=== PATIENT | male | born 1960 | race Caucasian/White ===

== ENCOUNTER 2019-08-13 15:00 | Outpatient (CLI) | payer BC, SELFPAY ==
--- NOTE | ~2019-08-13 | XR_ITS ---
XR hip RT min 2V DATE: 08/13/2019 15:24 INDICATION: Right hip pain radiating down right leg TECHNIQUE: AP, lateral and crosstable lateral views of right hip COMPARISON: None FINDINGS: No fracture or dislocation, avascular necrosis or bone destruction. Right hip joint space a ppears relatively preserved. The pubic symphysis and sacroiliac joints are unremarkable. IMPRESSION: No significant abnormality of right hip Reviewed, dictated and finalized at location A.
== END 2019-08-13 15:01 | disposition home or self-care (01) ==
LOC: ANHIMG 15:02
PROVIDERS: PCP Internal Medicine; Visit Provider Clinical Nurse Specialist
DX: M25.551 Pain in right hip (principal)
CPT/HCPCS: 73502

== ENCOUNTER 2020-02-26 17:10 | Outpatient (CLI) | payer BC, SELFPAY ==
--- NOTE | ~2020-02-26 | CT_ITS ---
EXAMINATION: CT lung screening EXAM DATE: 02/26/2020 17:26 INDICATION: Personal history of nicotine dependence. TECHNIQUE: Spiral low dose CT of the chest without contrast. Axial, coronal and sagittal images were reviewed. The dose-length product (DLP) for this examination was 186.97 mGy-cm. The exposure was t ailored according to patient size (auto mA exposure control), and iterative reconstruction (ASIR) was used as additional dose reduction technique. Comparison is made to prior examination from 12/29/2016. FINDINGS: The lungs are clear. Tracheobronchial tree is patent. There is no mediastinal, hilar o r axillary lymphadenopathy. There are no pleural or pericardial effusions. There is no pneumothor ax. Heart normal in size. There is mild coronary arterial calcification, arterial sclerosis. Uppe r abdomen is unremarkable. There is moderate thoracic spondylosis without osteoblastic or osteolyti c lesions identified. IMPRESSION: Lung-RADS category 1, negative (<1%chance of malignancy); recommend continued LDCT screen ing in 1 year. Reviewed, dictated and finalized at location A. [employer] IMPRESSION: Lung-RADS category 1, negative (<1%chance of malignancy); recommend continued LDCT screening in 1 year.
== END 2020-02-26 17:11 | disposition home or self-care (01) ==
PROVIDERS: PCP Internal Medicine; Visit Provider Internal Medicine
DX: Z12.2 Encounter for screening for malignant neoplasm of respiratory organs (principal); Z87.891 Personal history of nicotine dependence
CPT/HCPCS: 71271

== ENCOUNTER 2020-05-11 06:40 | Outpatient (CLI) | payer BC, SELFPAY ==
--- NOTE | ~2020-05-11 | MR_ITS ---
EXAMINATION: MR lumbar spine wo [facility] EXAM DATE: 05/11/2020 07:41 INDICATION: M54.16 - Radiculopathy, lumbar region . Low back pain and right leg pain. TECHNIQUE: Multi-sequential, multiplanar MR images of the lumbar spine were obtained without contrast . Sagittal T1, T2, T2 fat saturation images. Axial T2 weighted images. There is no prior study for comparison. FINDINGS: There are scattered focal signal abnormalities consistent with hemangiomata, otherwise with out focal suspicious marrow signal abnormalities. There is moderate loss of the disc heights from T11 through L3, mild to moderate at the other lumbar levels. There is 2 mm retrolisthesis L1 on L2, L2 o n L3. There is 3 mm retrolisthesis L3 on L4 and L5 on S1. The conus medullaris terminates at the L1/2 level and has normal signal intensity and morphology. There is nerve root crowding and clumping con sistent with arachnoiditis which could be chronic. Paraspinal soft tissue is unremarkable. Level by level evaluation: T12-L1: There is a mild diffuse disc bulge. Facet arthropathy: Mild. Neural foraminal stenosis: No stenosis. Central canal stenosis: No stenosis. L1-L2: There is a mild to moderate diffuse disc bulge. Facet arthropathy: Mild. Neural foraminal stenosis: Mild left. Central canal stenosis: Mild. L2-L3: There is a moderate diffuse disc bulge. Facet arthropathy: Moderate. Neural foraminal stenosis: Mild to moderate bilateral. Central canal stenosis: Mild to moderate. L3-L4: There is a moderate diffuse disc bulge, far left annular fissure. Facet arthropathy: Moderate. Neural foraminal stenosis: Moderate left, mild to moderate right. Central canal stenosis: Moderate. L4-L5: There is a large diffuse disc bulge. Facet arthropathy: Moderate to severe. Neural foraminal stenosis: Moderate bilateral. Central canal stenosis: Moderate to severe. L5-S1: There is a mild to moderate diffuse disc bulge. Facet arthropathy: Moderate left, mild to moderate right. Neural foraminal stenosis: Moderate to severe left, moderate right. Central canal stenosis: Mild. IMPRESSION: 1. Multilevel nerve root crowding, and clumping distally, consistent with arachnoiditis. 2. L4-5 moderate to severe central canal stenosis. 3. Otherwise overall moderate lumbar spondylosis. Reviewed, dictated and finalized at location A. IMPRESSION: 1. Multilevel nerve root crowding, and clumping distally, consistent with arac hnoiditis. 2. L4-5 moderate to severe central canal stenosis. 3. Otherwise overall moderate lumbar spondylosis.
== END 2020-05-11 06:41 | disposition home or self-care (01) ==
PROVIDERS: PCP Internal Medicine; Visit Provider Internal Medicine
DX: M54.16 Radiculopathy, lumbar region (principal); M54.31 Sciatica, right side; M48.061 Spinal stenosis, lumbar region without neurogenic claudication; M47.816 Spondylosis without myelopathy or radiculopathy, lumbar region
CPT/HCPCS: 72148

== ENCOUNTER 2020-06-19 06:42 | Outpatient (CLI) | payer BC, SELFPAY ==
--- NOTE | ~2020-06-19 | MR_ITS ---
EXAMINATION: MR cervical spine wo con DATE: 06/19/2020 07:54 INDICATION: Lack of coordination. Back and leg pain. TECHNIQUE: Magnetic resonance imaging (MRI) of the cervical spine was performed without intravenous c ontrast. Sequences included sagittal T2-weighted FSE, sagittal STIR FSE, sagittal T1-weighted FSE, ax ial MERGE, and axial T2-weighted FSE. COMPARISON: None FINDINGS: There is 6 degrees levocurvature of cervical spine. There is mild kyphosis of cervical spin e. There is 2 mm retrolisthesis of C6 on C7. Vertebral body heights are normal. There is mildly decre ased disc height at C3-C4 and moderately decreased disc height at C5-C6 and C6-C7. There is increased T2-weighted signal intensity in the spinal cord centered at the ramirez matter with cord volume loss at C6-C7. There is mildly increased T2-weighted signal intensity in the spinal cord at C5-C6. The follo wing disc levels are specifically discussed: C2-C3: There is a left central protrusion. There is no uncovertebral joint osteoarthritis. There is m ild left facet joint osteoarthritis. There is no neural foraminal stenosis. There is no central canal stenosis. C3-C4: The disc is bulging. There is severe bilateral uncovertebral joint osteoarthritis. There is se natasha right and mild left facet joint osteoarthritis. There is moderate right and mild left neural for aminal stenosis. There is mild central canal stenosis. C4-C5: The disc does not extend beyond the endplate margin. There is no uncovertebral joint osteoarth ritis. There is severe right facet joint osteoarthritis. There is mild right neural foraminal stenosi s. There is no central canal stenosis. C5-C6: The disc is bulging. There is severe bilateral uncovertebral joint osteoarthritis. There is mo derate right facet joint osteoarthritis. There is mild bilateral neural foraminal stenosis. There is mild central canal stenosis. C6-C7: The disc is bulging with superimposed central extrusion. There is moderate bilateral uncoverte bral joint osteoarthritis. There is mild left facet joint osteoarthritis. There is moderate bilateral neural foraminal stenosis. There is mild central canal stenosis. C7-T1: The disc does not extend beyond the endplate margin. There is mild left uncovertebral joint os teoarthritis. There is severe bilateral facet joint osteoarthritis. There is mild right and moderate left neural foraminal stenosis. There is no central canal stenosis. IMPRESSION: 1. Myelomalacia at C5-C6 and C6-C7. 2. Moderate cervical spondylosis. Reviewed, dictated and finalized at location A.
== END 2020-06-19 06:43 | disposition home or self-care (01) ==
PROVIDERS: PCP Internal Medicine
DX: R27.9 Unspecified lack of coordination (principal); G95.89 Other specified diseases of spinal cord; M47.812 Spondylosis without myelopathy or radiculopathy, cervical region
CPT/HCPCS: 72141

== ENCOUNTER 2020-08-17 15:07 | Outpatient (CLI) | payer BC, SELFPAY ==
--- NOTE | ~2020-08-17 | MR_ITS ---
EXAMINATION: MR thoracic spine wo [facility] EXAM DATE: 08/17/2020 15:47 INDICATION: Mid back pain. TECHNIQUE: Multi-sequential, multiplanar MR images of the thoracic spine were obtained without contra st. Sagittal T1, T2, T2 fat saturation, axial T2 weighted images reviewed. Correlation is made to MR cervical spine 06/19/2020. FINDINGS: There is mild cervicothoracic scoliosis. Mild mid thoracic disc disease, mild to moderate l ower thoracic disc disease. Mild diffuse loss of lower thoracic vertebral body heights. Small mid and lower thoracic endplate osteophytes. There are scattered focal signal abnormalities consistent with hemangiomata, otherwise without focal suspicious marrow signal abnormalities. Mild upper thoracic, mi ld to moderate mid and lower thoracic facet arthropathy. Small lower cervical spinal cord signal abno rmality, correlate with MRI cervical spine report from 06/19/2020. The thoracic spinal cord signal is normal. Paraspinal soft tissue is unremarkable. The following levels specifically discussed. T8-9: There is a mild to moderate diffuse disc bulge. Facet arthropathy: Mild to moderate right, mild left. Neural foraminal stenosis: Mild to moderate right, mild left. Central canal stenosis: Mild to moderate. T9-10: There is a mild diffuse disc bulge. Facet arthropathy: Mild to moderate bilateral. Neural foraminal stenosis: Mild right. Central canal stenosis: Mild. T10-11: There is a mild to moderate diffuse disc bulge. Facet arthropathy: Mild to moderate bilateral. Neural foraminal stenosis: Moderate bilateral. Central canal stenosis: Mild to moderate. T11-12: There is a mild to moderate diffuse disc bulge. Facet arthropathy: Moderate left, mild right. Neural foraminal stenosis: Moderate to severe left, moderate right. Central canal stenosis: Mild to moderate. T12-L1: There is a mild diffuse disc bulge. Facet arthropathy: Mild. Neural foraminal stenosis: No stenosis. Central canal stenosis: No stenosis. IMPRESSION: Lower thoracic predominant spondylosis as detailed above. No acute findings. Reviewed, dictated and finalized at location A.
== END 2020-08-17 15:08 | disposition home or self-care (01) ==
PROVIDERS: PCP Internal Medicine
DX: M54.9 Dorsalgia, unspecified (principal); M47.814 Spondylosis without myelopathy or radiculopathy, thoracic region
CPT/HCPCS: 72146

== ENCOUNTER → 2020-08-25 16:23 | Outpatient (CLI) | payer BC, SELFPAY ==
--- NOTE | ~2020-08-25 | XR_ITS ---
EXAMINATION: XR chest 2V 08/25/2020 17:09 INDICATION: Dyspnea. PROCEDURE: PA and lateral views of the chest COMPARISON: No prior studies for comparison. FINDINGS: The lungs are clear. The cardiomediastinal silhouette is within normal limits. There are no pleural effusions. There is no pneumothorax suspected. IMPRESSION: 1: NO ACUTE CARDIOPULMONARY DISEASE. Reviewed, dictated and finalized at location A.
== END ==
PROVIDERS: PCP Internal Medicine; Visit Provider Internal Medicine
DX: R06.00 Dyspnea, unspecified (principal)
CPT/HCPCS: 71046

== ENCOUNTER 2020-09-04 10:02 | Outpatient (CLI) | payer BC, SELFPAY ==
--- NOTE | 2020-09-04 10:24 | EST_ITS ---
Patient Info Name: Christiano Malone Age: 60 years : 1960 Gender: Male Ht: 69 in Wt: 205 lbs BSA: 2.15 m2 Exam Date: 09/04/2020 10:36 AM Exam Location: [facility] Stress Patient Status: Outpatient Admit Date: 09/04/2020 Staff Ordering Physician: Lon Graham DO Attending Provider: Lon Graham DO Exercise Technologist: Irasema Wells RDCS Exercise Physician: Mejia Winters DO Exam Type: CA stress test treadmill Study Info Indications R06.00 - Dyspnea, unspecified A treadmill exercise stress test was performed. Summary 1. 1. Negative Walt exercise stress test for ischemic ST changes by ECG criteria. However, he achieved only 73% MPHR for age group which reduces sensitivity of the test. 2. 2. Reduced functional capacity, achieving 7 METs of workload. This is primarily due to unable to keep up with treadmill speed as he ambulates with a limp. 3. 3. Appropriate HR response to exercise. 4. 4. Appropriate HR recovery at 1 minute post exercise. 5. 5. No imaging with stress testing. 6. 6. Patient informed of the above results. Protocol: Walt Stress ECG Details Stage: REST Duration (min): 1 min : 0 sec Speed (mph): 0.0 Grade (%): 0 HR (bpm): 61 SBP (mmHg): 128 DBP (mmHg): 66 METS: --- Stage: REST Duration (min): 4 min : 38 sec Speed (mph): 0.0 Grade (%): 0 HR (bpm): 62 SBP (mmHg): 128 DBP (mmHg): 66 METS: --- Stage: STAGE 1 Duration (min): 1 min : 0 sec Speed (mph): 1.7 Grade (%): 10 HR (bpm): 83 SBP (mmHg): 128 DBP (mmHg): 66 METS: --- Stage: STAGE 1 Duration (min): 2 min : 0 sec Speed (mph): 1.7 Grade (%): 10 HR (bpm): 92 SBP (mmHg): 128 DBP (mmHg): 66 METS: --- Stage: STAGE 1 Duration (min): 3 min : 0 sec Speed (mph): 1.7 Grade (%): 10 HR (bpm): 97 SBP (mmHg): 181 DBP (mmHg): 102 METS: --- Stage: STAGE 2 Duration (min): 1 min : 0 sec Speed (mph): 2.5 Grade (%): 12 HR (bpm): 106 SBP (mmHg): 181 DBP (mmHg): 102 METS: --- Stage: STAGE 2 Duration (min): 2 min : 0 sec Speed (mph): 2.5 Grade (%): 12 HR (bpm): 111 SBP (mmHg): 200 DBP (mmHg): 45 METS: --- Stage: STAGE 2 Duration (min): 3 min : 0 sec Speed (mph): 2.5 Grade (%): 12 HR (bpm): 113 SBP (mmHg): 200 DBP (mmHg): 45 METS: --- Stage: STAGE 3 Duration (min): 0 min : 8 sec Speed (mph): 3.4 Grade (%): 14 HR (bpm): 115 SBP (mmHg): 200 DBP (mmHg): 45 METS: --- Stage: RECOVERY Duration (min): 0 min : 51 sec Speed (mph): 0.0 Grade (%): 0 HR (bpm): 106 SBP (mmHg): 173 DBP (mmHg): 59 METS: --- Stage: RECOVERY Duration (min): 1 min : 51 sec Speed (mph): 0.0 Grade (%): 0 HR (bpm): 87 SBP (mmHg): 173 DBP (mmHg): 59 METS: --- Stage: RECOVERY Duration (min): 2 min : 51 sec Speed (mph): 0.0 Grade (%):
== END 2020-09-04 10:03 | disposition home or self-care (01) ==
LOC: ANHCARD 10:04
PROVIDERS: PCP Internal Medicine; Visit Provider Internal Medicine
DX: R06.00 Dyspnea, unspecified (principal); I10 Essential (primary) hypertension
CPT/HCPCS: 93017

== ENCOUNTER 2020-09-18 08:30 | Outpatient (CLI) | payer BC, SELFPAY ==
--- NOTE | 2020-09-18 08:59 | ECHO_ITS ---
Patient Info Name: Christiano Malone Age: 60 years : 1960 Gender: Male Ht: 69 in Wt: 205 lbs BSA: 2.15 m2 HR: 62 bpm BP: 120 / 72 mmHg Technical Quality: Good Exam Date: 09/18/2020 9:16 AM Exam Location: [facility] Pulmonary Patient Status: Outpatient Admit Date: 09/18/2020 Staff Ordering Physician: Lon Graham DO Quotation Clerk: Jo Santiago RDCS Attending Provider: Lon Graham DO Referring Physician: Santos DIAZ; Exam Type: CA echo doppler color flow Study Info Indications - short of breath Complete two-dimensional, color flow and Doppler transthoracic echocardiogram is performed. Summary 1. Complete two-dimensional, color flow and Doppler transthoracic echocardiogram is performed. 2. Left ventricular chamber dimension is normal. 3. Left ventricular systolic function is normal, estimated at 60-65%. 4. The left ventricular diastolic function is grade I diastolic dysfunction. 5. E/e' 8 is minimally elevated. 6. Global longitudinal strain is normal at -20.4%. 7. No pulmonary hypertension, estimated pulmonary arterial systolic pressure is 21 mmHg. Left Ventricle E/e' 8 is minimally elevated. Global longitudinal strain is normal at -20.4%. Left ventricular chamber dimension is normal. Left ventricular systolic function is normal, estimated at 60-65%. The left ventricular diastolic function is grade I diastolic dysfunction. Right Ventricle Right ventricular chamber dimension is normal. Right ventricular systolic function is normal. Left Atria Left atrial chamber dimension is normal. Right Atria Right atrial chamber dimension is normal. Aortic Valve The aortic valve is trileaflet. There is no aortic valve stenosis. There is no aortic valve regurgitation. Pulmonic Valve There is no pulmonic regurgitation. Mitral Valve There is no mitral valve stenosis. There is no mitral valve regurgitation. Tricuspid Valve There is no tricuspid valve regurgitation. No pulmonary hypertension, estimated pulmonary arterial systolic pressure is 21 mmHg. Pericardium/Pleural There is no pericardial effusion. Inferior Vena Cava Normal inferior vena cava with >50% collapse upon inspiration consistent with normal right atrial pressure, 5 mmHg. Aorta The aortic root size at the sinus of Valsalva is normal. Left Ventricular Outflow Tract Name Value Normal LVOT 2D LVOT Diameter 2.0 cm LVOT Doppler LVOT Peak Gradient 7 mmHg LVOT Mean Gradient 4 mmHg LVOT VTI 26 cm LVOT VTI/AV VTI Ratio 1.0 LVOT Stroke Volume 79 ml LVOT CO 16.7 l/min LVOT CI 7.8 l/min/m2 Pulmonic Valve Name Value Normal PV Doppler
--- NOTE | 2020-09-18 13:42 | WPDPFTINT ---
PFT Procedure Performed PFT Procedure Performed Plethysmography (Lung Vol) Diffusing Cap (DLCO) Flow Vol Loop Spirometry w/o Bronchodil PFT Interpretation This is a pulmonary function test with spirometry, plethysmography and diffusing capacity. The test was performed and results interpreted in accordance with the 2019 and 2005 ATS/ERS Task Force guidelines respectively using the Global Lung Function Initiative-2012 reference equations. Patient demonstrated good effort and cooperation. Reproducibility criteria were met. The quality of the spirometry maneuver was Grade B. Findings: Spirometry: There is decreased maximal expiratory airflow at low lung volumes with concave expiratory flow tracing. The FVC is 2.72 L, 61% predicted. The FEV1 is 2.07 L, 60% predicted. The FEV1: FVC ratio 76%. Plethysmography: The total lung capacity is 6.75 L, 100% predicted. The functional residual capacity is 4.13 L, 117% predicted. The residual volume is 3.70, 168% predicted. Diffusing capacity: The absolute diffusion capacity is 19.2, 69% predicted. The diffusing capacity corrected for alveolar volume is 4.38, 103% predicted. Impression: There is a moderate obstructive abnormality. The increase in residual volume is consistent with air trapping from an obstructive abnormality. The absolute diffusing capacity is mildly decreased and normalizes when corrected for alveolar volume. There are no prior studies for comparison
== END 2020-09-18 08:31 | disposition home or self-care (01) ==
PROVIDERS: PCP Internal Medicine; Visit Provider Internal Medicine
DX: R06.02 Shortness of breath (principal); R06.00 Dyspnea, unspecified
CPT/HCPCS: 93306; 94375; 94726; 94729

== ENCOUNTER 2020-10-16 09:32 | Outpatient (CLI) | payer BC, SELFPAY ==
--- NOTE | ~2020-10-16 | NM_ITS ---
EXAMINATION: NM selvin stress w perfusion DATE: 10/16/2020 12:14 INDICATION: Chest pain TECHNIQUE: Rest images were obtained following intravenous administration of 9.64 mCi Tc99m tetrofosm in (Myoview). The patient was infused intravenously with Lexiscan (Regadenoson). Then, 30.6 mCi Tc99m tetrofosmin (Myoview) was administered intravenously, and stress images were obtained in supine posi tion. Additional prone post stress images were obtained. Data was reconstructed into short axis and h orizontal and vertical long axis SPECT images. Gated SPECT images were also obtained. COMPARISON: None. FINDINGS: There is no definite reversible or fixed perfusion abnormality to suggest ischemia or infar ction. There is normal left ventricular chamber size, wall motion and ejection fraction. Left ventr icular ejection fraction measures 68%. IMPRESSION: 1. Normal myocardial perfusion at rest and during stress. 2. Left ventricular ejection fraction measuring 68%. Reviewed, dictated and finalized at location B.
--- NOTE | 2020-10-16 10:07 | EST_ITS ---
Patient Info Name: Christiano Malone Age: 60 years : 1960 Gender: Male Ht: 69 in Wt: 200 lbs BSA: 2.12 m2 Exam Date: 10/16/2020 10:48 AM Exam Location: [facility] Stress Patient Status: Outpatient Admit Date: 10/16/2020 Staff Ordering Physician: Lon Graham DO Attending Provider: Lon Grahma DO Exercise Technologist: Irasema Wells RDCS Exercise Physician: Mejia Winters DO Exam Type: CA stress selvin w NM Study Info Indications R07.9 - Chest pain, unspecified A regadenoson stress test was performed. Summary 1. 1. Negative lexiscan stress test for ischemic ST changes by ECG criteria. 2. 2. Stable hemodynamics throughout the test. 3. 3. Nuclear scan to follow and will be reported separately. Please correlate with it. 4. 4. Patient informed of the above results. Protocol: Lexiscan Stress ECG Details Stage: REST Duration (min): 0 min : 44 sec HR (bpm): 50 SBP (mmHg): 127 DBP (mmHg): 76 Stage: REST Duration (min): 16 min : 3 sec HR (bpm): 45 SBP (mmHg): 127 DBP (mmHg): 76 Stage: STAGE 1 Duration (min): 1 min : 0 sec HR (bpm): 54 SBP (mmHg): 117 DBP (mmHg): 74 Stage: RECOVERY Duration (min): 1 min : 0 sec HR (bpm): 71 SBP (mmHg): 117 DBP (mmHg): 72 Stage: RECOVERY Duration (min): 2 min : 0 sec HR (bpm): 71 SBP (mmHg): 117 DBP (mmHg): 72 Stage: RECOVERY Duration (min): 3 min : 0 sec HR (bpm): 68 SBP (mmHg): 116 DBP (mmHg): 70 Stage: RECOVERY Duration (min): 4 min : 0 sec HR (bpm): 65 SBP (mmHg): 116 DBP (mmHg): 70 Stage: RECOVERY Duration (min): 5 min : 0 sec HR (bpm): 63 SBP (mmHg): 116 DBP (mmHg): 61 Stage: RECOVERY Duration (min): 6 min : 0 sec HR (bpm): 64 SBP (mmHg): 116 DBP (mmHg): 61 Stage: RECOVERY Duration (min): 6 min : 43 sec HR (bpm): 63 SBP (mmHg): 121 DBP (mmHg): 64 Rest HR: 45 bpm Peak HR: 72 bpm Rest Sys BP: 127 mmHg Peak Sys BP: 121 mmHg Max Pred HR: 159 bpm % Max Pred HR: 45 % Target HR: 135 bpm Max RPP: 8,712 bpm*mmHg Termination Reason: Completed protocol Cardiac Symptoms: Shortness of breath Total Time: 1 min : 0 sec Rest Taylor BP: 76 mmHg Peak Taylor BP: 64 mmHg Total Dose: 0.4 mg Resting ECG Sinus bradycardia, IRBBB. Stress ECG No ST changes. Arrhythmias None. Report Signatures
== END 2020-10-16 09:33 | disposition home or self-care (01) ==
PROVIDERS: PCP Internal Medicine; Visit Provider Internal Medicine
DX: R06.00 Dyspnea, unspecified (principal); R07.9 Chest pain, unspecified; R53.83 Other fatigue
CPT/HCPCS: 78452; 93017; A9502; J2785

== ENCOUNTER 2021-03-19 13:26 | Outpatient (CLI) | payer BC, SELFPAY ==
--- NOTE | ~2021-03-19 | CT_ITS ---
CT lung screening DATE: 03/19/2021 13:46 INDICATION: Personal history of nicotine dependence TECHNIQUE: Spiral CT images through the chest. The exposure was tailored according to patient size. I terative reconstruction was used as an additional dose reduction technique. Exam dose: 317.73 mGy-cm total exam DLP. COMPARISON: 08/25/2020 PA and lateral chest 02/26/2020 CT lung screening FINDINGS: Normal heart size. There is atherosclerotic calcification but normal caliber of the thoraci c aorta. Coronary artery calcifications. No hilar or mediastinal mass lesion or lymphadenopathy. 3 mm nodule in the superior segment of the right lower lobe (series 4 image 71). Normal morphology of the adrenal glands. Lower anterior cervical spine surgical fusion. Degenerative spurring of the thoracic and lumbar spine. IMPRESSION: Lung-RADS category 2; benign appearance or behavior. Less than 1% risk of malignancy Recommendation: 1 year follow-up CT lung screening Reviewed, dictated and finalized at Location A. Reviewed, dictated and finalized at location A. 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 Less than 1% r isk of malignancy Recommendation: 1 year follow-up CT lung screening
== END 2021-03-19 13:27 | disposition home or self-care (01) ==
LOC: ANHIMG 13:30
PROVIDERS: PCP Internal Medicine; Visit Provider Nurse Practitioner
DX: Z12.2 Encounter for screening for malignant neoplasm of respiratory organs (principal); Z87.891 Personal history of nicotine dependence
CPT/HCPCS: 71271

== ENCOUNTER 2021-06-22 12:43 | Outpatient (CLI) | payer BC, SELFPAY ==
--- NOTE | ~2021-06-22 | MR_ITS ---
EXAMINATION: MR thoracic spine wo con DATE: 06/22/2021 14:26 INDICATION: Right leg weakness. TECHNIQUE: Magnetic resonance imaging (MRI) of the thoracic spine was performed without intravenous c ontrast. Sagittal localizer T1-weighted FSE of the cervical spine was obtained. Thoracic spine sequen pilar included sagittal T2-weighted FSE, sagittal T1-weighted FSE, sagittal STIR FSE, and axial T2-weig hted FSE. COMPARISON: Thoracic spine MRI 08/17/2020 FINDINGS: There is 8 degrees dextrocurvature of thoracic spine. There are Schmorl's nodes from T6-T7 through T12-L1. There is mild chronic anterior wedging of T12 vertebral body. There is mildly decreas ed disc height from T3-T4 through T7-T8 and moderately decreased disc height from T8-T9 through T11-T 12. There are changes of anterior fusion procedure at C5-C6. There is multilevel facet joint osteoar thritis, severe on the right at T8-T9, T10-T11, and T11-T12 and severe on the left at T8-T9 and T11-T 12. There is mild neural foraminal stenosis bilaterally at multiple levels. On the right, there is mo derate neural foraminal stenosis at T10-T11 and T11-T12. On the left, there is moderate neural forami nal stenosis at T10-T11. At T1-T2, there is a right central extrusion with mild central canal stenosi s. At T2-T3, there is a left central protrusion with mild central canal stenosis. At T6-T7 and T7-T8, the discs are bulging with mild central canal stenosis. At T8-T9, there is a right central extrusion with mild central canal stenosis and ventral indentation of the spinal cord. The discs are bulging f rom T9-T10 through T12-L1 with mild central canal stenosis. Partially visualized is myelomalacia at C 5-C6 and C6-C7. The distal spinal cord is obscured by motion artifact. IMPRESSION: 1. Moderate thoracic spondylosis. 2. Myelomalacia at C5-C6 and C6-C7. Reviewed, dictated and finalized at location B.
--- NOTE | ~2021-06-22 | MR_ITS ---
EXAMINATION: MR cervical spine wo con DATE: 06/22/2021 14:12 INDICATION: Right leg weakness. TECHNIQUE: Magnetic resonance imaging (MRI) of the cervical spine was performed without intravenous c ontrast. Sequences included sagittal T2-weighted FSE, sagittal T2-weighted FS FSE, sagittal T1-weight ed FSE, axial MERGE, and axial T2-weighted FSE. COMPARISON: Cervical spine MRI 06/19/2020 FINDINGS: There is 9 degrees levocurvature of cervicothoracic spine. There is 2 mm anterolisthesis of C4 on C5 and 2 mm retrolisthesis of C5 on C6 and C6 on C7. Vertebral body heights are normal. There are changes of anterior fusion procedure at C5-C6 with interbody device and anterior plate and screws . There is moderately decreased disc height at C3-C4 and severely decreased disc height at C6-C7. The re is increased T2-weighted signal intensity in the spinal cord at C5-C6 and C6-C7, consistent with m yelomalacia. The following disc levels are specifically discussed: C2-C3: There is a left central protrusion. There is moderate left uncovertebral joint osteoarthritis. There is mild right and moderate left facet joint osteoarthritis. There is mild left neural foramina l stenosis. There is mild central canal stenosis. C3-C4: There is a right central and foraminal zone extrusion. There is severe bilateral uncovertebral joint osteoarthritis. There is severe right and mild left facet joint osteoarthritis. There is sever e right and moderate left neural foraminal stenosis. There is moderate central canal stenosis with ve ntral and dorsal indentation of the spinal cord. C4-C5: There is a central extrusion. There is mild bilateral uncovertebral joint osteoarthritis. Ther e is severe right facet joint osteoarthritis. There is moderate right and mild left neural foraminal stenosis. There is mild central canal stenosis. C5-C6: There is severe bilateral uncovertebral joint hypertrophy. There is moderate bilateral facet j oint osteoarthritis. There is moderate right and mild left neural foraminal stenosis. There is no chad tral canal stenosis. C6-C7: The disc is bulging. There is severe bilateral uncovertebral joint osteoarthritis. There is mo derate bilateral facet joint osteoarthritis. There is moderate bilateral neural foraminal stenosis. T here is mild central canal stenosis. C7-T1: The disc does not extend beyond the endplate margin. There is no uncovertebral joint osteoarth ritis. There is severe bilateral facet joint osteoarthritis. There is moderate right and mild left ne ural foraminal stenosis. There is no central canal stenosis. IMPRESSION: 1. Myelomalacia at C5-C6 and C6-C7. 2. Severe cervical spondylosis. 3. Anterior fusion procedure at C5-C6, new from 06/19/2020. Reviewed, dictated and finalized at location B.
--- NOTE | ~2021-06-22 | MR_ITS ---
EXAMINATION: MR lumbar spine wo con DATE: 06/22/2021 14:26 INDICATION: Right leg weakness. TECHNIQUE: Magnetic resonance imaging (MRI) of the lumbar spine was performed without intravenous con trast. Sequences included sagittal T2-weighted FSE, sagittal T2-weighted FS FSE, sagittal T1-weighted FSE, and axial T2-weighted FSE. COMPARISON: Lumbar spine MRI 05/11/2020 FINDINGS: There is 5 degrees levocurvature of lumbar spine. There is 4 mm retrolisthesis of L1 on L2, L2 on L3, and L3 on L4 and 3 mm retrolisthesis of L5 on S1. There are Schmorl's nodes at multiple le vels. There is mild chronic anterior wedging of T12-L2 vertebral bodies. There is moderately decrease d disc height from T11-T12 through L4-L5 and mildly decreased disc height at L5-S1. The distal spinal cord signal intensity is normal. The conus medullaris is at L1. The following disc levels are specif ically discussed: L1-L2: The disc is bulging and has an annular fissure. There is mild right and moderate left facet rocco int osteoarthritis. There is mild bilateral neural foraminal stenosis. There is mild central canal st enosis. L2-L3: The disc is bulging and has an annular fissure. There is mild bilateral facet joint osteoarthr itis. There is moderate bilateral neural foraminal stenosis. There is mild central canal stenosis. L3-L4: The disc is bulging and has an annular fissure. There is moderate right and mild left facet rocco int osteoarthritis. There is moderate bilateral neural foraminal stenosis. There is mild central nguyen l stenosis. L4-L5: The disc is bulging and has an annular fissure. There is severe bilateral facet joint osteoart hritis. There is moderate bilateral neural foraminal stenosis. There is moderate central canal stenos is. L5-S1: The disc is bulging and has an annular fissure. There is moderate right and severe left facet joint osteoarthritis. There is moderate bilateral neural foraminal stenosis. There is mild central ca nal stenosis. IMPRESSION: 1. Moderate lumbar spondylosis, slightly worsened from 05/11/20. Reviewed, dictated and finalized at location B.
== END 2021-06-22 12:44 | disposition home or self-care (01) ==
PROVIDERS: PCP Internal Medicine
DX: R53.1 Weakness (principal); R26.89 Other abnormalities of gait and mobility; M47.814 Spondylosis without myelopathy or radiculopathy, thoracic region; G95.89 Other specified diseases of spinal cord; M43.02 Spondylolysis, cervical region; Z98.1 Arthrodesis status; M47.816 Spondylosis without myelopathy or radiculopathy, lumbar region
CPT/HCPCS: 72141; 72146; 72148

== ENCOUNTER 2022-03-23 15:22 | Outpatient (CLI) | payer BC, SELFPAY ==
--- NOTE | ~2022-03-23 | CT_ITS ---
CT Scan of the Chest without Contrast: Clinical Indication: Lung cancer screening, smoking history Technique: Contiguous sections were acquired throughout the chest without intravenous contrast. Dose reduction technique was used on this scan by utilizing automated exposure control and iterative recon struction technique. The dose-length product (DLP) was 183.41 mGy-cm. COMPARISON: 03/11/2021 and 02/26/2020 Findings: There is no evidence of any significant mediastinal, hilar or axillary lymphadenopathy. Coronary jenn ry calcifications are present. There is no evidence of pleural or pericardial effusion. Stable 4 mm pulmonary nodule in the right lower lobe (axial image 77). Images through the upper abdomen reveal no abnormalities. Impression: Lung-RADS 2: Benign appearance. Twelve-month follow-up screening CT recommended. Stable 4 mm pulmonary nodule in the right lower lobe. Reviewed, dictated and finalized at [facility]. [employer] ADMINISTRATOR Impression: Lung-RADS 2: Benign appearance. Twelve-month follow-up screening CT recommended . Stable 4 mm pulmonary nodule in the right lower lobe.
== END 2022-03-23 15:23 | disposition home or self-care (01) ==
PROVIDERS: PCP Internal Medicine; Visit Provider Nurse Practitioner
DX: Z12.2 Encounter for screening for malignant neoplasm of respiratory organs (principal); R91.1 Solitary pulmonary nodule; Z87.891 Personal history of nicotine dependence
CPT/HCPCS: 71271

== ENCOUNTER → 2022-12-13 13:36 | Outpatient (CLI) | payer BC, SELFPAY ==
--- NOTE | ~2022-12-13 | MR_ITS ---
EXAMINATION: MR lumbar spine wo/w con DATE: 12/13/2022 14:52 INDICATION: Radiculopathy, lumbar region. Low back pain. TECHNIQUE: Magnetic resonance imaging (MRI) of the lumbar spine was performed without and with 18 mL MultiHance intravenous contrast. COMPARISON: Lumbar spine MRI 05/11/2020 FINDINGS: There is 5 degrees levocurvature of lumbar spine. There is 4 mm retrolisthesis of L1 on L2, L2 on L3, and L3 on L4. There is mild chronic anterior wedging of T12-L2 vertebral bodies. There are Schmorl's nodes at most levels. There is moderately decreased disc height from T11-T12 through L4-L5 and mildly decreased disc height at L5-S1. The distal spinal cord signal intensity is normal. The co nus medullaris is at L1. The following disc levels are specifically discussed: L1-L2: The disc is bulging with superimposed central extrusion. There is mild bilateral facet joint o steoarthritis. There is mild bilateral neural foraminal stenosis. There is mild central canal stenosi s. L2-L3: The disc is bulging with superimposed central extrusion. There is severe right and mild left f acet joint osteoarthritis. There is mild bilateral neural foraminal stenosis. There is mild central c anal stenosis. L3-L4: The disc is bulging and has an annular fissure. There is severe right and mild left facet join t osteoarthritis. There is mild right and moderate left neural foraminal stenosis. There is mild cent ral canal stenosis. L4-L5: The disc is bulging and has an annular fissure. There is severe bilateral facet joint osteoart hritis. There is moderate bilateral neural foraminal stenosis. There is moderate central canal stenos is. L5-S1: The disc is bulging. There is severe bilateral facet joint osteoarthritis. There is moderate b ilateral neural foraminal stenosis. There is mild central canal stenosis. IMPRESSION: 1. Moderate lumbar spondylosis, stable from 05/11/2020. Reviewed, dictated and finalized at location E.
== END ==
PROVIDERS: PCP Internal Medicine; Visit Provider Internal Medicine
DX: M54.16 Radiculopathy, lumbar region (principal); M43.06 Spondylolysis, lumbar region
CPT/HCPCS: 72158

== ENCOUNTER 2023-03-27 19:52 | Emergency (ER) | payer BC, SELFPAY ==
[2023-03-27 20:04] VITALS: BP 121/68; PULSE 71; RESP 20; TEMP 36.3; O2SAT 100
--- NOTE | 2023-03-27 23:30 | ED.SKABFB ---
HPI - Skin/Abscess/Foreign Bdy General Chief complaint: Skin/Abscess/Foreign Body Stated complaint: drainage after back sx Time Seen by Provider: 03/27/23 22:53 History of Present Illness HPI narrative: 62-year-old male with a history of COPD, lumbar stenosis s/p laminectomy on 02/24/2023, hyperlipidemia reports for evaluation for leaking clear fluid to his postop laminectomy site that started today. Patient had an L2-L5 laminectomy performed at [facility] by Dr. Salas on 02/24/2023. Patient went back to [facility] 1 week ago for worsening pain. He was admitted for 4 days for pain control, nausea control and received muscle relaxers and steroids. Patient states he was discharged home with muscle relaxers, steroids and oxycodone without much improvement, however is only taking 1 oxycodone. States today he knows clear drainage from his incision site which prompted him to come to the ER today. He denies fever, saddle anesthesia, urinary or bowel incontinence, urinary retention, vomiting. He reports extreme pain to his back or surrounding his incision that radiates down his left posterior thigh to his knee which is new since surgery. Related Data Home Medications Medication Instructions Recorded Confirmed aspirin 81 mg tablet,delayed 81 mg PO DAILY 08/13/19 11/24/22 release (Adult Low Dose Aspirin) Allergies Allergy/AdvReac Type Severity Reaction Status Date / Time Penicillins Allergy Unknown Skin Verified 03/27/23 19:52 Reaction sulfamethoxazole Allergy Unknown HIVES Verified 03/27/23 19:52 trimethoprim Allergy Unknown HIVES Verified 03/27/23 19:52 Review of Systems Review of Systems: CONSTITUTIONAL: Denies fever, chills, or sweats. EYES: Denies visual changes, redness, or discharge. ENT: Denies rhinorrhea, congestion, sore throat, or otalgia. CARDIOVASCULAR: Denies chest pain, palpitations, or edema. RESPIRATORY: Denies cough or dyspnea. GASTROINTESTINAL: Denies abdominal pain, nausea, vomiting, or diarrhea. GENITOURINARY: Denies dysuria or hematuria. SKIN: Denies rash or itching. MUSCULOSKELETAL: See HPI NEUROLOGIC: Denies headache, numbness, or weakness. PSYCHIATRIC: Denies anxiety or depression. [facility] Past Medical History Medical History Anxiety COPD (chronic obstructive pulmonary disease) Essential (primary) hypertension Fibromyalgia GERD (gastroesophageal reflux disease) High cholesterol History of kidney stones Lumbar radiculopathy, chronic Lumbar stenosis Surgical History Surgical History Epidermal cyst Hx of fusion of cervical spine Kidney stone removed 2017 Family History Family History Father Hypertension Sibling Hypertension Mother Family history of malignant neoplasm Hodgkin lymphoma Grandparent Liver problem Alcohol abuse Social History Social History Smoking packs per day: 0.25 Smoking cigarettes per day: 5.0 Years smoked: 40 Smoking pack-years: 10.00 Smoking status: Current every day smoker Tobacco type: cigarettes Second hand tobacco smoke exposure: No Additional smoking assessment comments: still smoking 1/2 pack a day. 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
[2023-03-27] MEDS: HYDROmorphone HCL INJ (*CRX) 1 MG/ML SYR IV PUSH (23:42)
[2023-03-27 23:53] LABS: Basophils Percent Auto 0.1 % (0.2-1.2); Eosinophils Absolute Auto 0.2 K/mm3 (0-0.3); Eosinophils Percent Auto 0.8 % (0-4.4); Hematocrit 37.5 % (42.0-52.0); Hemoglobin 12.6 g/dL (14.0-18.0); Immature Granulocyte Absolute 0.19 K/mm3 (0.00-0.031); Immature Granulocyte Percent A 0.8 % (0-0.5); Lymphocytes Absolute Auto 1.31 K/mm3 (0.9-3.2); Lymphocytes Percent Auto 5.5 % (18.3-44.2); Mean Corpuscular HGB Conc 33.6 g/dl (32-36); Mean Corpuscular Hemoglobin 31.8 pg (26-34); Mean Corpuscular Volume 94.7 fl (80-100); Mean Platelet Volume 9.9 fl (7.4-10.4); Monocytes Absolute Auto 1.6 K/mm3 (0.1-0.6); Monocytes Percent Auto 6.6 % (2.6-8.5); Neutrophils Absolute Auto 20.7 K/mm3 (1.3-6.7); Neutrophils Percent Auto 86.2 % (45.5-73.1); Platelet Count Result 328 k/mm3 (150-375); Red Blood Count 3.96 M/mm3 (4.6-6.20); Red Cell Distribution Width 12.5 % (11.5-14.5)
[2023-03-28 00:04] LABS: Alanine Aminotransferase 39 U/L (6-50); Albumin Level 3.8 g/dL (3.5-5.1); Alkaline Phosphatase 67 U/L (38-126); Anion Gap 9 mmol/L (8-16); Aspartate Amino Transferase 25 U/L (17-59); Bilirubin,Total 0.8 mg/dL (0.2-1.3); Blood Urea Nitrogen 31 mg/dL (9-20); Calcium 9.4 mg/dL (8.4-10.2); Carbon Dioxide 24 mmol/L (22-30); Chloride 102 mmol/L (98-107); Estimated CRCL calculation 82 ml/min; Estimated Glomerular Filt Rate > 60; Glucose 123 mg/dL (65-110); Potassium 3.8 mmol/L (3.4-5.0); Sodium 135 mmol/L (137-145)
[2023-03-28] MEDS: CEFEPIME 2 GM/NS 50 ML 2 GM/50 ML BAG IVPB (01:10)
[2023-03-28] MEDS: ACETAMINOPHEN 500 MG TABLET 1000 MG PO (01:10)
[2023-03-28] MEDS: SODIUM CHLORIDE 0.9% IV 1,000 ML 999 ML IV CONT (01:10)
[2023-03-28 01:11] VITALS: BP 112/68; PULSE 104; RESP 15; O2SAT 100
[2023-03-28] MEDS: HYDROmorphone HCL INJ (*CRX) 1 MG/ML SYR IV PUSH (01:19)
[2023-03-28] MEDS: VANCOMYCIN 1,250 MG/NS 250 ML 1,250 MG/250 ML BAG 166.67 MG IVPB (01:20)
[2023-03-28 01:26] LABS: Lactic Acid Reflex 1.4 mmol/L (0.7-2.0)
[2023-03-28 01:30] LABS: CRP 6.8 mg/dL (<1.0)
[2023-03-28 01:32] VITALS: BP 114/62; PULSE 98; RESP 15; O2SAT 100
[2023-03-28 01:42] LABS: Erythrocyte Sedimentation Rate 95 mm/hr (0-20)
== END 2023-03-28 01:34 | disposition short-term general hospital (02) ==
PROVIDERS: Emergency Provider Physician Assistant; PCP Internal Medicine
DX: T81.31XA Disruption of external operation (surgical) wound, not elsewhere classified, initial encounter (principal); J44.9 Chronic obstructive pulmonary disease, unspecified; E78.5 Hyperlipidemia, unspecified; F17.210 Nicotine dependence, cigarettes, uncomplicated; Y84.8 Other medical procedures as the cause of abnormal reaction of the patient, or of later complication, without mention of misadventure at the time of the procedure
CPT/HCPCS: 36415; 80053; 83605; 85025; 85652; 86140; 87040; 96365; 96375; 96376; 99285; A9270; J0692; J1170; J3370; J7030

== ENCOUNTER 2023-04-20 07:45 | Outpatient (CLI) | payer BC, SELFPAY ==
--- NOTE | ~2023-04-20 | CT_ITS ---
EXAMINATION: CT lung screening DATE: 04/20/2023 08:12 INDICATION: Z87.891 - Personal history of nicotine dependence TECHNIQUE: Computed tomography (CT) of the chest was performed without intravenous contrast. Addition al 3D reconstructions utilizing coronal maximum intensity projection (MIP) were performed. Automated exposure control and iterative reconstruction technique were employed. The dose-length product was 18 7.23 mGy-cm. COMPARISON: None FINDINGS: Mild emphysema. The previously 4 mm more nodular appearing opacity superior segment of the right lowe r lobe now appears more thin and linear favoring atelectasis/scarring. There is additional more well- defined linear discoid atelectasis at the left posterior sulcus. There is a small region of subtle gr oundglass and tree-in-bud opacity in the posterior basilar right lower lobe and in the lingula consis tent with bronchiolitis. Small calcified right lower lobe nodule consistent with old granulomatous di sease. No new or enlarging pulmonary nodules, pulmonary edema or pleural effusion. Heart size is norm al. Atherosclerotic coronary artery calcific lesions. No pericardial effusion. Thoracic aorta is norm al in caliber. Left upper extremity peripherally inserted central venous catheter (PICC) tip at the caudal superior vena cava. No pathologically enlarged thoracic lymphadenopathy. Mild S-shaped curvatu re of the thoracic spine with severe spondylosis. IMPRESSION: 1. Lung-RADS category 2: Benign appearance or behavior. Continue annual screening with noncontrast lo w-dose chest CT in 12 months. Reviewed, dictated and finalized at location L. [facility] PREPARATION IMPRESSION: 1. Lung-RADS category 2: Benign appearance or behavior. Continue annual screeni ng with noncontrast low-dose chest CT in 12 months.
== END 2023-04-20 07:46 | disposition home or self-care (01) ==
PROVIDERS: PCP Internal Medicine; Visit Provider Internal Medicine
DX: Z12.2 Encounter for screening for malignant neoplasm of respiratory organs (principal); Z87.891 Personal history of nicotine dependence
CPT/HCPCS: 71271

== ENCOUNTER 2023-10-27 13:03 | Outpatient (CLI) | payer BC, SELFPAY ==
--- NOTE | ~2023-10-27 | MM_ITS ---
EXAMINATION: MM diagnostic kelton RT w yvrose HISTORY: Breast pain TECHNIQUE: Additional 3-D tomosynthesis images of the right breast were performed and synthetic 2-D i mages were generated. Comparison left MLO view performed. CAD analysis was submitted and interpreted. COMPARISON: No prior studies for comparison. BREAST PARENCHYMAL COMPOSITION: Not dense: There are scattered areas of fibroglandular density. FINDINGS: There are no suspicious masses, calcifications or architectural distortion in either breast to suggest malignancy. IMPRESSION: 1. No mammographic evidence for malignancy. Benign gynecomastia. 2. Recommend follow-up clinical management for gynecomastia. BI-RADS Category 2: Benign finding(s). Reviewed, dictated and finalized at location B.
== END 2023-10-27 13:04 | disposition home or self-care (01) ==
LOC: ANHIMG 13:05
PROVIDERS: PCP Internal Medicine; Visit Provider Nurse Practitioner
DX: N64.4 Mastodynia (principal)
CPT/HCPCS: 77061; 77065; G0279

== ENCOUNTER 2023-11-02 12:33 | Outpatient (CLI) | payer BC, SELFPAY ==
--- NOTE | ~2023-11-02 | CT_ITS ---
EXAMINATION: CT abdomen pelvis w con DATE: 11/02/2023 12:56 INDICATION: Unspecified abdominal pain. TECHNIQUE: Computed tomography (CT) of the abdomen and pelvis was performed with 100 mL Omnipaque 350 intravenous contrast. Automated exposure control and iterative reconstruction technique were employe d. The dose-length product was 816.82 mGy-cm. COMPARISON: CT abdomen and pelvis 09/20/2014 FINDINGS: The visualized portions of the lung bases demonstrate minimal atelectasis. No pleural effus ion. The heart is normal. No pericardial effusion. There is a 4 mm cyst in the liver. The gallbladder , spleen, pancreas, and adrenal glands are normal. There is a 4 mm stone in right kidney. There is a 3 mm stone in left kidney. There is calcified atherosclerosis of the aorta and many of the other jenn veronica. There is diverticulosis of the colon without evidence of diverticulitis. There are no dilated l oops of bowel. The appendix is normal. There are no pathologically enlarged lymph nodes. There is no free intraperitoneal fluid. There is a chronic sclerotic lesion in left ilium, likely benign. There i s severe thoracic spondylosis and moderate lumbar spondylosis. There are changes of posterior decompr ession and lumbar spine. IMPRESSION: 1. No etiology for the patient's symptoms. Reviewed, dictated and finalized at location A.
[2023-11-02 12:50] LABS: Estimated Glomerular Filt Rate > 60
== END 2023-11-02 12:34 | disposition home or self-care (01) ==
LOC: ANHIMG 12:35
PROVIDERS: PCP Internal Medicine; Visit Provider Nurse Practitioner
DX: T81.49XA Infection following a procedure, other surgical site, initial encounter (principal); G89.29 Other chronic pain
CPT/HCPCS: 74177; Q9967

== ENCOUNTER 2023-11-16 08:35 | Outpatient (CLI) | payer BC, SELFPAY ==
--- NOTE | ~2023-11-16 | XR_ITS ---
XR hip BI 2V w AP pelvis Ordering provider: Lucio Bryant MD History: . lbp and right leg pain for 4 yrs, hx of back sx 2-24, no inj . Comparison: None. FINDINGS: BONES: No acute fracture or dislocation. HIP JOINT SPACES: Mild osteoarthritic changes. SACROILIAC JOINT SPACES/LUMBAR SPINE: The sacroiliac joint spaces are normal. Mild degenerative garcia es of the visualized lower lumbar spine. PUBIC SYMPHYSIS: Normal. SOFT TISSUES: Normal. IMPRESSION: No acute osseous abnormality of the bilateral hips and pelvis. Reviewed, dictated and finalized at location A.
--- NOTE | ~2023-11-16 | XR_ITS ---
3 VIEWS LUMBAR SPINE Ordering provider: Lucio Bryant MD History: . lbp and right leg pain for 4 yrs, hx of back sx 2-24, no inj . Comparison: December 05, 2006 FINDINGS: VERTEBRAL BODIES:Mild levoscoliosis. No visible fracture or subluxation. Degenerative changes of the spine. Postoperative changes in the lower lumbar area. DISK SPACES: Narrowing of the disc spaces T11-T12, T12-L1, L1-L2, L2-L3, L3-L4, and L4-5. Multilevel facet joint disease. SOFT TISSUES: Normal. Aortic calcification. IMPRESSION: No acute osseous abnormality lumbar spine. Reviewed, dictated and finalized at location A.
== END 2023-11-16 08:36 | disposition home or self-care (01) ==
LOC: GOSHIMG 08:36
PROVIDERS: PCP Internal Medicine; Visit Provider Anesthesiology Pain Medicine
DX: M54.50 Low back pain, unspecified (principal); M79.604 Pain in right leg
CPT/HCPCS: 72114; 73521

== ENCOUNTER 2024-01-08 00:14 | Day surgery (SDC) | payer BC, SELFPAY ==
[2024-01-03 12:32] VITALS: BMI 30.3
--- NOTE | 2024-01-03 12:41 | PC.NURSE ---
Report to the Outpatient Waiting Room, entrance under the green pavilion located off [facility], at time _1245_ on date _[phone]_. Planned Procedure Time: _145pm_.? Time changes happen often and if your time is changed the preop area will call you the afternoon before. - You and your visitor will be asked to self-screen and do not enter if you have any COVID symptoms. Please call surgeon if you need to reschedule. - A mask is optional within the hospital at this time. Ok to eat breakfast. Nothing to eat or drink after 1145am or 2 hours before procedure. Take only the following medications with a SIP of water on the morning of surgery: ___All medications OK____ DO NOT STOP ANY OF YOUR OTHER PRESCRIPTION MEDICATIONS PRIOR TO SURGERY EXCEPT THE FOLLOWING Medications to discontinue per physician __None____ Please no make-up, nail micronesian, hairspray, perfume, deodorant, or body powder the day of surgery.? No jewelry (including any body piercings) or valuables the day of surgery, leave them at home.? Please take a shower or bath the night before, or the morning of, surgery with an antibacterial soap.? Wear comfortable, loose fitting clothing.? - Jewelry must be removed prior to entering the operating room.? Rings and piercings that are not removed may be cut off. - The hospital will not accept responsibility for valuables.? - Please leave all valuables, including medications, at home the day of surgery. If you are going home after surgery, a licensed test driver must drive you home.? - NO public transportation without another adult if you receive anesthesia. - We recommend that an adult stay with you for 24 hours following discharge. - We also recommend that you do not drive, make important decision, drink alcoholic beverages, or take any drugs that were not prescribed by your health care provider for at least 24 hours after your discharge time. Follow any additional instructions given to you from your surgeon. Telephone instructions given to _Greg__and asked if any additional questions and then verbalized understanding. Patient advised to call surgeon office or pre surgery nurse liaison [phone] if any additional questions.
--- NOTE | ~2024-01-08 | XR_ITS ---
INTRAOPERATIVE FLUOROSCOPY: CLINICAL HISTORY: 63 years old Male; RIGHT L3, L4, L5 MEDIAL BRANCH/DORSAL RAMUS NERVE BLOCKS PROCEDURE COMMENTS: Limited intraoperative fluoroscopy of the lumbar spine was performed. CUMULATIVE DOSE: 11.8 mGy FLUOROSCOPY TIME: 39.2 seconds FINDINGS/IMPRESSION: Please refer to operative note for further details. Reviewed, dictated and finalized at location A. ORAL COUNSELOR
--- NOTE | 2024-01-08 06:28 | PM.HPGS ---
History of Present Illness History of Present Illness Consent: Risks, benefits, and alternatives have been discussed and questions answered. Patient agrees to proceed with procedure. Chief complaint: lumbar spondylosis, chronic low back pain Narrative: Baudilio Malone is a 63 year old male with chronic, recalcitrant and disabling right-sided lumbosacral back pain secondary to degenerative spondylosis with failure to respond to aggressive conservative measures including PT, oral and topical analgesics, opioid and nonopioid analgesics, rest, time and activity/behavioral modification over the past 1-2 years who presents for diagnostic/prognostic medial branch blocks on the right at L3, L4, L5 (#1) addressing the ipsilateral L4-5, L5-S1 facet joints under fluoroscopic guidance and with contrast control. Review of Systems Review of Systems: Patient denies any new infectious, allergic, cardiopulmonary, neurologic or constitutional symptoms or changes in activity tolerance or exercise capacity including new or progressive SOB/TORIBIO, peripheral edema, productive cough, dysuria, nausea/vomiting, diarrhea, weight change, fevers/chills/night sweats, new or progressive neurologic deficit, cognitive or mood changes since last seen, except as documented in the HPI. All systems reviewed & are unremarkable except as noted in HPI and below PMFSH Past Medical History Medical History (Updated 01/08/24 @ 06:31 by Lucio Bryant MD) Anxiety Cervical vertebral fusion Chronic pain COPD (chronic obstructive pulmonary disease) Essential (primary) hypertension Fibromyalgia GERD (gastroesophageal reflux disease) High cholesterol History of kidney stones Lumbar radiculopathy, chronic Lumbar stenosis Surgical History Surgical History Epidermal cyst History of back surgery 4 times Feb/Mar 2023 Hx of fusion of cervical spine Kidney stone removed 2017 Status post lumbar spine surgery for decompression of spinal cord Family History Family History Father Hypertension Sibling Hypertension Mother Family history of malignant neoplasm Hodgkin lymphoma Grandparent Liver problem Alcohol abuse Social History Social History Smoking packs per day: 1 Smoking cigarettes per day: 20.0 Years smoked: 40 Smoking pack-years: 40.00 Smoking status: Former smoker Tobacco type: cigarettes Second hand tobacco smoke exposure: No Smoking end date: 06/24/21 Additional smoking assessment comments: still smoking 1/2 pack a day. 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 [employer] Gender identity (if verbalized by the patient): Male Spiritual care concerns: No Meds Home Medications and Allergies Home Medications Medication Instructions Recorded Confirmed Type sertraline 100 mg tablet See Rx Instructions .Route 08/23/23 01/03/24 Rx .COMPLEX #90 tabs atorvastatin 20 mg tablet 20 mg PO QHS #90 tabs 10/30/23 01/03/24 Rx hydrochlorothiazide 12.5 mg tablet 12.5 mg PO DAILY #90 tabs 11/06/23 01/03/24 Rx gabapentin 300 mg capsule 600 mg PO BID #360 caps 11/28/23 01/03/24 Rx omeprazole 40 mg capsule,delayed 40 mg PO DAILY #90 caps 11/28/23 01/03/24 Rx release Allergies Allergy/AdvReac Type Severity Reaction Status Date / Time Penicillins Allergy Unknown Skin Verified 01/03/24 12:31 Reaction sulfamethoxazole Allergy Unknown HIVES Verified 01/03/24 12:31 trimethoprim Allergy Unknown HIVES Verified 01/03/24 12:31 Exam Narrative: The patient's physical exam is essentially unchanged from prior examination on 11/14/2023. Specifically, patient demonstrates normal lung capacity, tidal volume and respiratory rate without wheezes, crackles, rales or rubs. Heart rate and rhythm are regular without murmurs, gallops or rubs. No JVD. Pulses 2+ globally without increasing peripheral edema. AAOx3, NC/AT without acute distress or altered consciousness. Speech, cognition, mood and judgment at baseline and within normal limits. Const: General: cooperative, no acute distress, well developed, alert, awake and Physically active Orientation/consciousness: patient oriented x3 Limitations: no limitations Assessment and Plan Assessment and plan (1) Lumbosacral spondylosis: Code(s): M47.817 - Spondylosis without myelopathy or radiculopathy, lumbosacral region Status: Acute (2) Dorsalgia: Code(s): M54.9 - Dorsalgia, unspecified Status: Acute (3) Chronic pain: Code(s): G89.29 - Other chronic pain Status: Acute Plan proceed as planned with right-sided diagnostic /prognostic medial branch/dorsal ramus nerve blocks at L3, L4, L5 ( # 1) under fluoroscopic guidance with contrast control.
--- NOTE | 2024-01-08 06:32 | WPDHPUPDATE1 ---
History and Physical Update Update Date/Time: 01/08/24 06:32 History and Physical has been reviewed, including an updated exam of the patient. There are NO changes in the patient's condition. Risks, benefits, and alternatives have been discussed and questions answered. Patient agrees to proceed with procedure.
--- NOTE | 2024-01-08 06:33 | W.PM.PROC2 ---
Procedure Note - Detailed Date of Procedure 01/08/24 Pre-op Diagnosis lumbar spondylosis, chronic low back pain Post-op Diagnosis Same Procedure Performed Diagnostic Right Lumbar Medial Branch/Dorsal Ramus Blocks at L3, L4, L5 Treating the Ipsilateral L4-5, L5-S1 Facet Joints Under Fluoroscopic Guidance and with Contrast Control. (2 levels blocked). Surgeon Lucio Bryant MD Radio Maintainer None. Anesthesia Local Description of Procedure INFORMED CONSENT: Risks, benefits and alternatives to the procedure were discussed in detail with the patient who expressed explicit understanding and consent to proceed. Patient was informed verbally and in written form regarding the risks associated with the procedure including the low risk of serious infection, bleeding/bruising, allergic reaction, nerve or organ injury, paralysis, procedural site pain or discomfort, worsening pain and/or mobility, failure to treat and/or disfigurement. The patient expressed explicit understanding and consent to proceed. All materials required for the procedure were available prior to procedure start. Site and side were marked prior to procedure and confirmed in the presence of the patient. PROCEDURE IN DETAIL: The patient was brought to the procedural suite and placed in the prone position. Patient was made comfortable with use of pillows under the head/chest, hips and ankles. Skin overlying the injection site on the affected side(s) was prepared broadly with ChloraPrep applicator and draped in a sterile manner. Aseptic technique was used throughout. The endplates of the vertebral bodies at the site(s) of interest were aligned in the AP view. Ipsilateral oblique angulation was utilized to optimize visualization of the intersection between the superior articulating process and transverse process at each target site. Local anesthesia was established by infiltration with approximately 5 mL of 1% lidocaine via a 1-1/2 inch 27-gauge needle. A 25-gauge 5.0 inch Quincke spinal needle was advanced until the needle tip contacted periosteum at the target site, right L3. Lateral view was utilized to confirm the appropriate placement of the needle tip just anterior to the facet line and superior to the pedicle. In the Lateral view, 0.25 mL of Omnipaque 300 contrast medium was injected after negative aspiration for CSF, blood or other bodily fluid, showing appropriate extra-articular spread of contrast without evidence of intravascular, foraminal or intrathecal placement. A 0.5 mL solution of 0.5% PF bupivacaine was injected after negative repeat aspiration. Appropriate spread of the injectate was confirmed with washout of previously injected contrast. No parasthesias were elicited. Needle was removed completely intact without difficulty. [The same exact procedure was repeated for all remaining levels on the ipsilateral side, right L4, L5 medial branches/dorsal ramus, modified as necessary to accommodate for the new target location with identical findings and results and no evidence of complication.] Images were saved and documented in the patient chart. Patient's skin was cleaned and sterile bandage applied. The patient tolerated the procedure well. The patient was transported to the recovery area in stable condition where they were observed for an appropriate amount of time prior to discharge, without evidence of complication. Patient was instructed on the appropriate completion of a pain diary over the next 12-24 hours. The patient was instructed to avoid excessive activity for the next 48 hours, including climbing and frequent use of stairs. Showers only for 48 hours. They were instructed not to drive or operate heavy machinery for 24 hours. They are to monitor for severe headaches, fevers, chills, night sweats, erythema/swelling at the site or any other signs of infection, bleeding/bruising, bowel or bladder changes as well as new pain, weakness or numbness in the upper or lower extremity. Should they notice these changes, they are instructed to call our office immediately or report directly to the nearest Emergency Department if no answer or if after posted office hours. COMPLICATIONS: None COMMENTS: None CONTRAST WASTED: 29.25mL Omnipaque 300. Complications No immediate complications Condition Stable Disposition Same day [facility] Billing Surgery - Charge Forward: Surgery Billing
[2024-01-08 08:40] VITALS: BP 143/68; PULSE 65; RESP 16; TEMP 36.6; O2SAT 98
[2024-01-08 09:15] VITALS: BP 173/78; PULSE 62; RESP 16; O2SAT 95
[2024-01-08] MEDS: BUPivacaine HCL 0.25% PF 10 ML VIAL 5 ML INFILTRATE (09:18)
[2024-01-08 09:20] VITALS: BP 164/71; PULSE 63; RESP 16; O2SAT 96
[2024-01-08 09:25] VITALS: BP 154/86; PULSE 60; RESP 12
== END 2024-01-08 09:40 | disposition home or self-care (01) ==
PROVIDERS: PCP Internal Medicine; Visit Provider Anesthesiology Pain Medicine
PROC: (CPT 64493; principal; 2024-01-08 13:45)
DX: M47.817 Spondylosis without myelopathy or radiculopathy, lumbosacral region (principal); M54.9 Dorsalgia, unspecified; M48.061 Spinal stenosis, lumbar region without neurogenic claudication; G89.29 Other chronic pain; J44.9 Chronic obstructive pulmonary disease, unspecified; I10 Essential (primary) hypertension; K21.9 Gastro-esophageal reflux disease without esophagitis; E78.00 Pure hypercholesterolemia, unspecified; F41.9 Anxiety disorder, unspecified; F17.210 Nicotine dependence, cigarettes, uncomplicated; Z98.890 Other specified postprocedural states; Z98.1 Arthrodesis status; Z87.442 Personal history of urinary calculi; Z80.7 Family history of other malignant neoplasms of lymphoid, hematopoietic and related tissues
CPT/HCPCS: 64493; 64494; 99199; Q9965

== ENCOUNTER 2024-01-16 08:43 | Outpatient (CLI) | payer BC, SELFPAY ==
[2024-01-16 12:07] LABS: Basophils Absolute Auto 0.1 K/mm3 (0.0-0.1); Basophils Percent Auto 0.5 % (0.2-1.2); Eosinophils Absolute Auto 0.3 K/mm3 (0-0.3); Eosinophils Percent Auto 2.3 % (0-4.4); Hematocrit 50.1 % (42.0-52.0); Hemoglobin 16.3 g/dL (14.0-18.0); Immature Granulocyte Absolute 0.04 K/mm3 (0.00-0.031); Immature Granulocyte Percent A 0.4 % (0-0.5); Lymphocytes Absolute Auto 2.84 K/mm3 (0.9-3.2); Lymphocytes Percent Auto 26.3 % (18.3-44.2); Mean Corpuscular HGB Conc 32.5 g/dl (32-36); Mean Corpuscular Hemoglobin 32.1 pg (26-34); Mean Corpuscular Volume 98.6 fl (80-100); Mean Platelet Volume 10.8 fl (7.4-10.4); Monocytes Absolute Auto 0.9 K/mm3 (0.1-0.6); Monocytes Percent Auto 8.1 % (2.6-8.5); Neutrophils Absolute Auto 6.8 K/mm3 (1.3-6.7); Neutrophils Percent Auto 62.4 % (45.5-73.1); Platelet Count Result 249 k/mm3 (150-375); Red Blood Count 5.08 M/mm3 (4.6-6.20); Red Cell Distribution Width 11.9 % (11.5-14.5); White Blood Count 10.8 K/mm3 (4.5-10.0)
[2024-01-16 12:37] LABS: Alanine Aminotransferase 34 U/L (6-50); Albumin Level 4.8 g/dL (3.5-5.1); Alkaline Phosphatase 76 U/L (38-126); Anion Gap 7 mmol/L (4-12); Aspartate Amino Transferase 75 U/L (17-59); Bilirubin,Total 1.1 mg/dL (0.2-1.3); Blood Urea Nitrogen 21 mg/dL (9-20); Calcium 9.9 mg/dL (8.4-10.2); Carbon Dioxide 28 mmol/L (22-30); Chloride 103 mmol/L (98-107); Estimated Glomerular Filt Rate > 60; Glucose 82 mg/dL (65-110); Sodium 138 mmol/L (137-145)
[2024-01-17 14:02] LABS: Prolactin 4.6 ng/mL (2.0-18.0)
== END 2024-01-16 08:44 | disposition home or self-care (01) ==
LOC: ANHGOSHLAB 08:44
PROVIDERS: PCP Internal Medicine; Visit Provider Internal Medicine
DX: E29.1 Testicular hypofunction (principal); I10 Essential (primary) hypertension; R53.83 Other fatigue
CPT/HCPCS: 36415; 80053; 84146; 85025

== ENCOUNTER 2024-02-16 11:49 | Outpatient (CLI) | payer BC, SELFPAY ==
--- NOTE | ~2024-02-16 | US_ITS ---
EXAMINATION: US venous doppler LE RT DATE: 02/16/2024 12:14 INDICATION: Left lower limb swelling TECHNIQUE: Grayscale ultrasound images without and with compression and Doppler ultrasound images of the right lower extremity veins were obtained. COMPARISON: CT dated 11/02/2023 FINDINGS: The visualized portions of right common femoral vein, profunda (deep) femoral vein, femoral vein, pop liteal vein, peroneal trunk, posterior tibial veins, peroneal veins, gastrocnemius vein and greater s aphenous vein outflow are patent. 4.3 x 4.4 x 1.5 cm right inguinal lymph node with very thin in plac e nearly indiscernible peripheral cortex and large central fatty hilum without significant change sin ce prior CT. There are a couple hypoechoic regions within the muscles at the lateral right thigh jessica uring approximately 3.4 x 1.4 cm and 4.2 x 2.1 cm which is in the proximity to the reported injection site most likely represent either abscesses or hematomas. IMPRESSION: 1. No deep venous thrombosis in the right lower limb. 2. Couple hypoechoic regions within the musculature at the injection site likely representing small a bscesses or hematomas. Reviewed, dictated and finalized at location B. UCTION OR PLANT ENGINEER IMPRESSION: 1. No deep venous thrombosis in the right lower limb. 2. Couple hypoechoic regions within the musculature at the injection site likel y representing small abscesses or hematomas.
== END 2024-02-16 11:50 | disposition home or self-care (01) ==
LOC: GOSHIMG 11:49
PROVIDERS: PCP Internal Medicine; Visit Provider Nurse Practitioner
DX: M79.89 Other specified soft tissue disorders (principal)
CPT/HCPCS: 93971

== ENCOUNTER 2024-05-07 08:54 | Outpatient (CLI) | payer MEDICARE, SELFPAY ==
--- NOTE | ~2024-05-07 | XR_ITS ---
Right Knee Technique: AP, lateral, and sunrise views were obtained. Clinical History: Pain Findings: No fracture or dislocation is seen. Osseous alignment is anatomic. Joint spaces are preserv ed without degenerative or erosive change. There is prepatellar soft tissue edema. No joint effusion is seen. Impression: Prepatellar soft tissue edema. Reviewed, dictated and finalized at location . Impression: Prepatellar soft tissue edema.
== END 2024-05-07 08:55 | disposition home or self-care (01) ==
LOC: GOSHIMG 08:55
PROVIDERS: PCP Internal Medicine; Visit Provider Internal Medicine
DX: M70.41 Prepatellar bursitis, right knee (principal)
CPT/HCPCS: 73562

== ENCOUNTER 2024-06-11 02:01 | Day surgery (SDC) | payer MEDICARE, SELFPAY ==
[2024-05-31 13:08] VITALS: BMI 29.5
--- NOTE | 2024-05-31 13:22 | PC.NURSE ---
Report to the Outpatient Waiting Room, entrance under the green pavilion located off [facility], at time __0930am on date __06/11/24 . Planned Procedure Time: _1130am .? Time changes happen often and if your time is changed the preop area will call you the afternoon before. - You and your visitor will be asked to self-screen and do not enter if you have any COVID symptoms. Please call surgeon if you need to reschedule. - A mask is optional within the hospital at this time. - No food or drink from midnight until time of surgery and no smoking, or chewing tobacco (or any form of nicotine). No chewing gum, candy or mints. Take only the following medications with a SIP of water on the morning of surgery: Sertraline and gabapentin DO NOT STOP ANY OF YOUR OTHER PRESCRIPTION MEDICATIONS PRIOR TO SURGERY EXCEPT THE FOLLOWING Hold all vitamins and supplements for 3 days per anesthesiologist. Date to last dose is 06/07/24 Medications to discontinue per physician Aspirin, NSAIDS for [address] Bryant Date to take last dose 06/02/24 Please no make-up, nail mongolian, hairspray, perfume, deodorant, or body powder the day of surgery.? No jewelry (including any body piercings) or valuables the day of surgery, leave them at home.? Please take a shower or bath the night before, or the morning of, surgery with an antibacterial soap.? Wear comfortable, loose fitting clothing.? - Jewelry must be removed prior to entering the operating room.? Rings and piercings that are not removed may be cut off. - The hospital will not accept responsibility for valuables.? - Please leave all valuables, including medications, at home the day of surgery. If you are going home after surgery, a licensed river driver must drive you home.? - NO public transportation without another adult if you receive anesthesia. - We recommend that an adult stay with you for 24 hours following discharge. - We also recommend that you do not drive, make important decision, drink alcoholic beverages, or take any drugs that were not prescribed by your health care provider for at least 24 hours after your discharge time. Follow any additional instructions given to you from your surgeon. Telephone instructions given to __Patient and asked if any additional questions and then verbalized understanding. Patient advised to call surgeon office or pre surgery nurse liaison [phone] if any additional questions.
--- NOTE | ~2024-06-11 | XR_ITS ---
INTRAOPERATIVE FLUOROSCOPY: CLINICAL HISTORY: 64 years old Male; LUMBAR ABLATION PROCEDURE COMMENTS: Limited intraoperative fluoroscopy of the lumbar spine was performed. CUMULATIVE DOSE: 25 mGy FLUOROSCOPY TIME: 60.4 seconds FINDINGS/IMPRESSION: Please refer to operative note for further details. Reviewed, dictated and finalized at location A.
--- OUTSIDE RECORDS SUMMARY | 2024-06-11 02:05 | XMS_ITS | Clinical Summary ---
Author Organization [facility] Address [address] [place] [address] Care Team Providers Care Gluing Machine Operator Electronic Name Role Phone Lon Graham DO Primary Care Provider [phone] Allergies Active Allergy Reactions Criticality Noted Date Comments Penicillin G Rash Medium 06/05/2020 Sulfamethoxazole Other (See comments) Low 1 Skin peels Trimethoprim Other (See comments) Low 06/05/2020 Skin peels Medications atorvastatin (LIPITOR) 10 mg tabletIndication s:hyperlipidemia Take 10 mg by mouth every morning 1 Active hydroCHLOROthiaz roberto (HYDRODIURIL) 25 mg tabletIndication s:Edema,hyperten lali Take 12.5 mg by mouth every evening 1 Active lisinopriL (PRINIVIL,ZESTRI L) 30 mg tabletIndication s:hypertension Take 30 mg by mouth nightly 1 Active metoprolol XL (TOPROL-XL) 50 mg extended release tabletIndication s:hypertension Take 50 mg by mouth every morning 1 Active sertraline (ZOLOFT) 100 mg tablet Take 100 mg by mouth every morning 1 Active omeprazole (PriLOSEC) 40 mg capsule Take 40 mg by mouth every morning Active multivitamin tabletIndication s:Vitamin Deficiency Prevention Take 1 tablet by mouth every morning Active aspirin 81 mg enteric coated tabletIndication s:Myocardial Reinfarction Prevention Take 1 tablet (81 mg total) by mouth every morning HOLD FOR 7 DAYS AFTER SURGERY 30 tablet 1 1 Active gabapentin (NEURONTIN) 300 mg capsule TAKE 1 CAPSULE TWICE A DAY 180 capsule 3 2 Active Additional Information Patient taking differently: 300 mg oral 3 times daily, Reported on 05/27/2021 Active Problems Problem Noted Date Diagnosed Date Cervical disc disorder with myelopathy of mid-cervical region 11/19/2020 Overview (11/19/2020): Added automatically from request for surgery [id number] Neck pain 07/24/2020 Immunizations Immunization Administration Dates Next Due Influenza, Quadrivalent, Eliane l Culture-based MDCK, Preservative Free, Antibiotic Free, Intramuscular 12/01/2019,11/29/2018 Influenza, Quadrivalent, Spl it, Preservative Free, Intramuscular 11/19/2017,11/16/2016 Influenza, Trivalent, Preservative Free, Intramu scular 10/19/2015,12/16/2014 Influenza, Unspecified 11/21/2019 Moderna SARS-CoV-2 Monovalent Vaccination (12+ Y RS) 04/30/2020,04/02/2020 Tdap 11/16/2016 ZOSTER Recombinant 04/10/2020,02/10/2020 Surgical History Surgery Date Site/Laterality Comments NASAL FRACTURE SURGERY 02/20/1973 - 02/19/1974 KIDNEY STONE EVALUATION Bilateral COLONOSCOPY UPPER GASTROINTESTINAL ENDOSCOPY Medical History Medical History Date Comments Anxiety Gastric reflux Hypertension Hyperlipidemia Heart burn Kidney stones 2016 Arthritis Sciatica Chronic pain disorder Low back pain Family History Medical History Relation Name Comments Hypertension Father Early Maternal Grandfather Kidney cancer Maternal Grandfather Liver cancer Maternal Grandfather Cancer Mother Early Mother Relation Name Status Comments Father Maternal Grandfather Mother Social History Tobacco Use Types Packs/Day Years Used Date Smoking Tobacco: Former Cigarettes 1 41.2 1 980 - 05/2020 Smokeless Tobacco: Never Tobacco Cessation:Counseling Given: No AUDIT-C Answer Date Recorded Q1: How often do you have a drink containing alc ohol? Never 05/27/2021 Average Number of Drinks Not on file 022 Q3: How often do you have si x or more drinks on one occasion? 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 Gender Identity Not on file Sexual Orientation Straight 10/21/2020 5: 07 PM CDT Obstetrics History Last Filed Vital Signs Vital Sign Reading Time Taken Comments Blood Pressure 123/72 07/02/2021 2:31 PM CDT Pulse 53 07/02/2021 2:31 PM CDT Temperature 36.4 C (97.5 F) 12/31/2020 2:40 PM CUSTOMER SERVICE CASHIER Respiratory Rate 20 12/31/2020 12:15 PM CUSTOMER SERVICE CASHIER Oxygen Saturation 96% 12/31/2020 12:15 PM CUSTOMER SERVICE CASHIER Inhaled Oxygen Concentration - - Weight 98.2 kg (216 lb 9.6 oz) 07/02/2021 2:31 P M CDT Height 175.3 cm (5' 9 ) 07/02/2021 2:31 PM CDT Body Mass Index 31.99 07/02/2021 2:31 PM CDT Plan of Treatment Health Maintenance Due Date Last Done Comments Colon Cancer Screening-Colonoscopy 1959 Depression Screening 1959 Hepatitis C Screening 1959 Prostate Cancer Screening-PSA 1959 Hepatitis B Screening 1977 Pneumococcal vaccine 65+ (1 of 1 - PCV) 2009 Fall Risk Assessment 12/31/2021 12/31/2020, 11/23/2020, 06/16/2020, Additional history exists Covid-19 Vaccine (3 - 2023-2 5 season) 2023 04/30/2020, 04/02/2020 Influenza Vaccine (#1) 2023 , 11/21/2019, 11/29/2018, Additional history exists Abdominal Aortic Aneurysm (A AA) Screen 2024 Well Visit 65+ 2024 DTaP/Tdap/Td Vaccine (2 - Td or Tdap) 11/16/2026 11/16/2016 Zoster Vaccine Completed 04/10/2020, 02/10/2020 Goals Goal Patient Goal Type Associated Problems Recent Progress Patient-Stated? Author CCM Chronic Pain Care Plan Chronic Care Management Yvette Sawyer, RN Note: Problem: Chronic Pain Goals: 1. Minimize further functional decline 2. Maximize quality of life 3. Control pain Strategies: - Activity/exercise program recommendation - Conservative stepwise pain medicine strategy with multi-disciplinary approach - Recommend healthy lifestyle strategies and compensatory methods as needed Reduce the likelihood of falling Lifestyle Yvette Sawyer RN Note: Below are four things you can do to prevent falls: Begin an exercise program to improve your leg strength & balance Ask your doctor or pharmacist to review your medicines Get annual eye check-ups & update your eyeglasses Make your home safer by: Removing clutter & tripping hazards Putting railings on all stairs & adding grab bars in the bathroom Having good lighting, especially on stairs Contact your local community or [facility] for information on exercise, fall prevention programs, or options for improving home safety. Medical Devices Implanted Type Area Pilot Control Operator Helper Device Identifier Shelf Expiration Date Model / Serial / Lot Hersey Spine [id number] Cervical Anterior 6d Cage Spinal Tritanium Sterile Latex Free - [id number] Implanted:Qty : 1 on 12/31/2020 by Jaleel Crum MD at [facility] Cage N/A: Spine Cervical Hersey Spine [id number] 10/29/2022 [id number] / / [id number] Vitoss Ba2x Bioactive Bone Graft Substitute Implanted:Qty : 1 on 12/31/2020 by Jaleel Crum MD at [facility] N/A: Spine Cervical [employer] [id number] 03/19/2021 [id number] / / [id number] Abbie Spine [id number] Plate 20mm Bone Cresson Spine Cervical 1 Level Nonsterile Latex Free - [id number] Implanted:Qty : 1 on 12/31/2020 by Jaleel Crum MD at [facility] N/A: Spine Cervical Abbie Spine [id number] / / IN TRAY Abbie Spine [id number] zark 4mm 18mm Self Start Variable Angle Spine Cervical Screw - [id number] Implanted:Qty : 4 on 12/31/2020 by Jaleel Crum MD at [facility] N/A: Spine Cervical Hersey Spine [id number] / / IN TRAY Insurance [place] BL[place] BL[place]ESS [place] Care Teams Gluing Machine Operator Electronic Relationship Specialty Start Date End Date Lon Graham DO PCP - General Internal Medicine 06/08/20
--- OUTSIDE RECORDS SUMMARY | 2024-06-11 02:05 | XMS_ITS | Referral Summary ---
Author Organization [facility] Address [address] [place] [address] Care Team Providers Care Appeals Nurse Name Role Phone Lon Graham DO Primary Care Provider +1- [phone] Allergies Active Allergy Reactions Criticality Noted Date [...] (11/19/2020): Added automatically from request for surgery [id number] Neck pain 07/24/2020 Immunizations Immunization Administration Dates Next Due Influenza, Quadrivalent, Eliane l Culture-based MDCK, Preservative Free, Antibiotic Free, Intramuscular 12/01/2019,11/29/2018 Influenza, Quadrivalent, Spl it, Preservative Free, Intramuscular 11/19/2017,11/16/2016 Influenza, Trivalent, Preservative Free, Intramu scular 10/19/2015,12/16/2014 Influenza, Unspecified 11/21/2019 Moderna SARS-CoV-2 Monovalent Vaccination (12+ Y RS) 04/30/2020,04/02/2020 Tdap 11/16/2016 ZOSTER Recombinant 04/10/2020,02/10/2020 Social History Tobacco Use Types Packs/Day Years [...] on file 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 Gender Identity Not on file Sexual Orientation Straight 10/21/2020 5: 07 PM CDT Last Filed Vital Signs Vital Sign Reading Time Taken Comments Blood Pressure 123/72 07/02/2021 2:31 PM CDT Pulse 53 07/02/2021 2:31 PM CDT Temperature 36.4 C (97.5 F) 12/31/2020 2:40 PM RADIOPHONE OPERATOR Respiratory Rate 20 12/31/2020 12:15 PM RADIOPHONE OPERATOR Oxygen Saturation 96% 12/31/2020 12:15 PM RADIOPHONE OPERATOR Inhaled Oxygen Concentration - - Weight 98.2 kg (216 lb 9.6 oz) 07/02/2021 2:31 P M CDT Height 175.3 cm (5' 9 ) 07/02/2021 2:31 PM CDT Body Mass Index 31.99 07/02/2021 2:31 PM CDT Plan of Treatment Not on file Goals Goal Patient Goal Type Associated Problems Recent Progress Patient-Stated? Author CCM Chronic Pain Care Plan Chronic Care Management No Yvette Gilliland RN Note: Problem: Chronic Pain Goals: 1. Minimize further functional decline 2. Maximize quality of life 3. Control pain Strategies: - Activity/exercise program recommendation - Conservative stepwise pain medicine strategy with multi-disciplinary approach - Recommend healthy lifestyle strategies and compensatory methods as needed Reduce the likelihood of falling Lifestyle No Yvette Gilliland RN Note: Below are four things you [...] on stairs Contact your local community or senior center for information on exercise, fall prevention programs, or options for improving home safety. Medical Devices Implanted Type Area Development Spec Device Identifier Shelf Expiration Date Model / Serial / Lot Abbie Spine [id number] Cervical Anterior 6d Cage Spinal Tritanium Sterile Latex Free - [id number] Implanted:Qty : 1 on 12/31/2020 by Jaleel Crum MD at [facility] Cage N/A: Spine Cervical Abbie Spine [id number] 10/29/2022 [id number] / / [id number] Vitoss Ba2x Bioactive Bone Graft Substitute Implanted:Qty : 1 on 12/31/2020 by Jaleel Crum MD at [facility] N/A: Spine Cervical [employer]ing [employer] [id number] 03/19/2021 [id number] / / [id number] Downing Spine [id number] Plate 20mm Bone Isanti Spine Cervical 1 Level Nonsterile Latex Free - [id number] Implanted:Qty : 1 on 12/31/2020 by Jaleel Crum MD at [facility] N/A: Spine Cervical Abbie Spine [id number] / / IN TRAY Downing Spine [id number] zark 4mm 18mm Self Start Variable Angle Spine Cervical Screw - [id number] Implanted:Qty : 4 on 12/31/2020 by Jaleel Crum MD at [facility] N/A: Spine Cervical Downing Spine [id number] / / IN TRAY Insurance [employer] [place] [employer] [place] [facility] Care Teams Appeals Nurse Relationship Specialty Start Date End Date Lon Graham DO PCP - General Internal Medicine 06/08/20
--- OUTSIDE RECORDS SUMMARY | 2024-06-11 02:05 | XMS_ITS | Patient Health Record ---
Author Organization [facility] Address [address] [place] [address] Care Team Providers Care Transportation Superintendent Name Role Phone Amanda James Primary Care Provider Reason For Referral No Information Immunizations Vaccine Route Administration Date Status Comme nts COVID-19 Moderna 2nd IM Intramuscular 04/30/2020 Administered COVID-19 Moderna 1ST IM Intramuscular 04/02/2020 Administered EUA date 0. Screening reviewed and consent signed. Patient tolerated well. Plan Of Treatment No Information Insurance Providers Payer Name Payer Address Payer Phone Subscriber Number Group Number Insured Name Patient Relationship to Insured Coverage Start Date Coverage End Date [facility] [address] [place] [address] [phone] [id number] Christiano Johnson Self - patient is the insured 1
--- OUTSIDE RECORDS SUMMARY | 2024-06-11 02:05 | XMS_ITS | Clinical Summary ---
Author Organization [facility] Address [address] [place] [address] Care Team Providers Care Purchasing Contracting Clerk Name Role Phone Lon Graham DO Primary Care Provider [phone]- [phone] Source Comments [facility],non-owned Affiliates and Associated Physician Practices is amultiple site organization consisting of ambulatory clinics and hospital sitesin [place], [place], [place] and [place]. This disclosure is being madepursuant to the Care Everywhere program and may not contain all information available regarding this patient. Last updated 17.[facility] Allergies Active Allergy Reactions Criticality Noted Date Comments Penicillins Rash Medium 04/12/2023 Sulfamethoxazole Other Low 06/05/2020 Skin peels Sulfamethoxazole W-Trimethoprim Skin Reactions Low 04/12/2023 Skin peels Trimethoprim Other Low 06/05/2020 Skin peels Medications * Be aware that medications may not be up to date on this document. Alwaysverify current medications with the patient. atorvastatin (Lipitor) 20 MG tablet Take 1 (one) tablet by mouth once daily 3 Active Symbicort 80-4.5 MCG/ACT inhaler Inhale 2 (two) puffs by mouth 2 times daily 3 Active gabapentin (Neurontin) 300 MG capsule Take 2 (two) capsules by mouth 2 times daily 3 Active hydroCHLOROthia zide (Hydrodiuril) 12.5 MG Take 1 (one) tablet by mouth once daily 3 Active lisinopril (Prinivil; Zestril) 30 MG tablet Take 1 (one) tablet by mouth once daily 3 Active metoprolol succinate XL 24hr (Toprol XL) 50 MG tablet Take 1 (one) tablet by mouth once daily 3 Active Multiple Vitamin (Multi-Vitamin) TABS Take 1 (one) tablet by mouth every morning Active sertraline (Zoloft) 100 MG tablet 3 Active omeprazole (PriLOSEC) 40 MG capsule Take 1 (one) capsule by mouth daily before breakfast Active tamsulosin (Flomax) 0.4 MG capsule Take 2 (two) capsules by mouth once daily At the same time every day after a meal. 90 capsule 1 4 Active acetaminophen (Tylenol) 500 MG tablet Take 2 (two) tablets by mouth every 8 hours Maximum allowable Acetaminophen amount = 4 Grams (4000 mg) / 24 hours. 100 tablet 4 Active bacitracin ointment Apply to affected area 2 times daily 28 g 4 Active Additional Information Patient not taking.Reported on 05/23/2023 senna (Senokot) 8.6 MG tablet Take 1 (one) tablet by mouth once daily 30 tablet 1 4 Active potassium chloride ER (Klor-Con M) 20 MEQ tablet Take 2 (two) tablets by mouth daily with breakfast 30 tablet 1 4 Active oxyCODONE, immediate release, (Roxicodone) 10 MG tabletIndicatio ns:Postoperativ e infection, unspecified type, initial encounter Take 1 (one) tablet by mouth every 6 hours as needed 42 tablet 4 Active Additional Information Patient taking differently: 2.5 mgOral EVERY 6 HOURS PRN, Reported on 05/04/2023 cyclobenzaprine (Flexeril) 5 MG tablet Take 1 (one) tablet by mouth nightly as needed (Muscle spasms) 30 tablet 4 Active Additional Information Patient not taking.Reported on 05/02/2023 celecoxib (CeleBREX) 200 MG capsule Take 1 (one) capsule by mouth once daily 30 capsule 5 4 Active methylPREDNISol one (Medrol Dosepak) 4 MG tablet Take by mouth as directed Take as directed by mouth per package instructions. 21 tablet Active Active Problems Problem Noted Date Diagnosed Date Postoperative infection, uns pecified type, initial encounter 03/28/2023 Sepsis 03/28/2023 Lumbar radiculopathy, acute 03/21/2023 Essential (primary) hypertension 03/21/2023 COPD (chronic obstructive pulmonary disease) Urinary retention 03/21/2023 Leukocytosis 03/21/2023 Normocytic anemia 03/21/2023 S/P spinal surgery 03/19/2023 Nausea and vomiting, unspecified vomiting type 0 03/19/2023 Midline low back pain, unspe cified chronicity, unspecified whether sciatica present 03/19/2023 Neurogenic claudication due to lumbar spinal mc nosis 02/24/2023 Social History Tobacco Use Types Packs/Day Years Used Date Smoking Tobacco: Former Cigarettes 1 40 0 05/1982 - 05/2022 Smokeless Tobacco: Never Tobacco Cessation:Counseling Given: Not Answered Alcohol Use Standard Drinks/Week Comments Yes 0 (1 standard drink = 0.6 oz pur e alcohol) every other day AUDIT-C Answer Date Recorded Q1: How often do you have a drink containing alc ohol? 2-4 times a month 03/28/2023 Q2: How many drinks containi ng alcohol do you have on a typical day when you are drinking? 1 or 2 03/28/2023 Q3: How often do you have si x or more drinks on one occasion? Less than monthly 03/28/2023 Overall Financial Resource Strain (CARDIA) Answe r Date Recorded How hard is it for you to pa y for the very basics like food, housing, medical care, and heating? Not hard at all 03/28/2023 PHQ-2 Answer Date Recorded Patient Health Questionnaire-2 Score 0 05/23/2023 [facility] of Occupat ional Health - Occupational Stress Questionnaire Answer Date Recorded Do you feel stress - tense, restless, nervous, or anxious, or unable to sleep at night because your mind is troubled all the time - these days? Not at all 03/28/2023 Hunger Vital Sign Answer Date Recorded Within the past 12 months, y ou worried that your food would run out before you got the money to buy more. Never true 03/28/19 24 Within the past 12 months, t he food you bought just didn't last and you didn't have money to get more. Never true 03/28/2023 PRAPARE - Transportation Answer Date Re corded In the past 12 months, has l ack of transportation kept you from medical appointments or from getting medications? No 07/2023 In the past 12 months, has l ack of transportation kept you from meetings, work, or from getting things needed for daily living? No 03/28/2023 Housing Stability Vital Sign Answer Travis e Recorded In the last 12 months, was t here a time when you were not able to pay the mortgage or rent on time? No 03/28/2023 In the last 12 months, how many places have you lived? 1 03/28/2023 In the last 12 months, was t here a time when you did not have a steady place to sleep or slept in a senior care (including now)? 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 Weight 90.5 kg (199 lb 9.6 oz) 07/04/2023 8:35 A M CDT Height 175.3 cm (5' 9 ) 06/06/2023 10:28 AM CDT Body Mass Index 29.48 06/06/2023 10:28 AM CDT Plan of Treatment Health Maintenance Due Date Last Done Comments COLOGUARD (AGES 45-75) - COLON CA SCREENING 1959 COLON MONITORING 1959 COLONOSCOPY - COLON CA SCREENING 1959 CT COLONOGRAPHY - COLON CA SCREENING 1959 Colorectal Cancer Screening 1959 FIT - COLON CA SCREENING 1959 FLEX SIG - COLON CA SCREENING 1959 HIV SCREENING 1974 HEPATITIS C SCREENING 03/31/1977 DTAP/TDAP/TD VACCINES (1 - Tdap) 1978 PNEUMOCOCCAL VACCINE 50+ (1 of 2 - PCV) 1978 LUNG CANCER SCREENING 2009 ZOSTER VACCINE (1 of 2) 2009 Respiratory Syncytial Virus (RSV) Vaccine Pt: or over 60 yrs (1 - Risk 60-74 years 1-dose series) 2019 COVID-19 VACCINE (3 - season) 2023 04/30/2020, 04/02/2020 DEPRESSION SCREENING 02/21/2024 05/02/2023 AAA SCREENING 2024 INFLUENZA VACCINE (Season Ended) 2024 12/01/2019, 11/21/2019, 11/29/2018, Additional history exists SCREENING FOR DIABETES 05/22/2026 , 04/12/2023, 04/12/2023, Additional history exists HEPATITIS B VACCINE Aged Out No longe r eligible based on patient's age to complete this topic HIB VACCINE Aged Out No longer eligi ble based on patient's age to complete this topic HPV VACCINE Aged Out No longer eligi ble based on patient's age to complete this topic MENINGOCOCCAL (Group B) VACCINE SHARED DECISION-MAKING Aged Out No longer eligible based on patient's age to complete this topic MENINGOCOCCAL GROUPS A/C/Y/W VACCINE Aged Out No longer eligible based on patient's age to complete this topic Medical Devices Implanted Type Area Publishing Agent Device Identifier Shelf Expiration Date Model / Serial / Lot Seal Dural Auto Spr Ext Tip 5ml Implanted:Qty: 1 on 02/24/2023 by Bhargav Artis MD at [facility] N/A: Spine Lumbar Burr Craniomaxillofacial [id number] / / Graft Tissue Drgn + Bvn Clgn Mtrx 2x2in Implanted:Qty: 1 on 02/24/2023 by Bhargav Artis MD at [facility] N/A: Spine Lumbar Inte[employer] [id number] / / Seal Dural Auto Spr Ext Tip 5ml Implanted:Qty: 1 on 02/24/2023 by Bhargav Artis MD at [facility] N/A: Spine Lumbar Abbie Craniomaxillofacial [id number] / / Seal Dural Auto Spr Ext Tip 5ml Implanted:Qty: 1 on 04/10/2023 by Bhargav Artis MD at [facility] Burr Craniomaxillofacial 12/20/2024 [id number] / / [id number] Graft Tissue Drgn + Bvn Clgn Mtrx 2x2in Implanted:Qty: 1 on 04/10/2023 by Bhargav Artis MD at [facility] N/A: Spine Lumbar Integra [employer] 10/20/2025 [id number] / / [id number] Procedures Procedure Name Priority Date/Time Associated Diagnosis Comments COMPREHENSIVE METABOLIC PANEL Routine 05/23/2023 9:22 AM CDT Postoperative infection, unspecified type, initial encounter from Last 3 Months or Most Recently Relevant to Health Maintenance Results * (ABNORMAL) COMPREHENSIVE METABOLIC PANEL (05/23/2023 9:22 AM CDT) BUN 16 7 - 26 mg/dL 05/23/2023 4:21 PM [facility] Creatinine 0.70(L) 0.71 - 1.16 mg/dL 05/23/2023 4:21 PM [facility] Sodium 141 136 - 145 mmol/L 05/23/2023 4:21 PM [facility] Potassium 3.7 3.5 - 4.5 mmol/L 05/23/2023 4:21 PM [facility] Chloride 105 98 - 107 mmol/L 05/23/2023 4:21 PM [facility] CO2 23 22 - 29 mmol/L 05/23/2023 4:21 PM [facility] Glucose 66(L) 70 - 115 mg/dL 05/23/2023 4:21 PM [facility] Calcium 9.8 8.4 - 10.2 mg/dL 05/23/2023 4:21 PM [facility] Protein Total 7.3 6.0 - 8.3 g/dL 05/23/2023 4:21 PM [facility] Albumin 3.6 3.4 - 5.0 g/dL 05/23/2023 4:21 PM [facility] Bilirubin Total 0.5 0.2 - 1.2 mg/dL 05/23/2023 4:21 PM [facility] Alkaline Phosphatase 61 40 - 150 U/L 05/23/2023 4:21 PM [facility] ALT 27 5 - 55 U/L 05/23/2023 4:21 PM [facility] AST 32 5 - 34 U/L 05/23/2023 4:21 PM [facility] Anion Gap 13 6 - 16 05/23/2023 4:21 PM [facility] BUN/Creatinine Ratio 23 7 - 23 05/23/2023 4:21 PM [facility] Osmolality Calculated 291 275 - 295 mOsm/kg 05/23/2023 4:21 PM [facility] Albumin/Globulin Ratio 1.0(L) 1.1 - 2.3 05/23/2023 4:21 PM [facility] eGFR by CKD-EPI >90 >=90 mL/min/1.7 3 m2 05/23/2023 4:21 PM [facility] Blood BLOOD SPECIMEN / Unknown Lab Venipuncture / Unknown 05/23/2023 9:22 AM CDT 05/23/2023 3:47 PM T us Jill Grullon PA-C LAB - CHEMISTRY ORDERABLES F inal Result [facility] [address] [place] [address], [facility] [phone] from Last 3 Months or Most Recently Relevant to Health Maintenance Insurance ANTH Advance Directives * Full Code (Latest Code Status on File) Date Activated Date Inactivated Comments 03/28/2023 7:59 AM 04/13/2023 6:02 PM * Full Code Date Activated Date Inactivated Comments 03/19/2023 4:28 AM 03/24/2023 3:15 PM * Full Code Date Activated Date Inactivated Comments 02/24/2023 3:33 PM 03/01/2023 2:53 PM Care Teams Purchasing Contracting Clerk Relationship Specialty Start Date End Date Lon Graham DO PCP - General Internal Medicine 12/27/22
--- OUTSIDE RECORDS SUMMARY | 2024-06-11 02:05 | XMS_ITS | Encounter Summary ---
Author Organization [facility] Address [facility] [place] [address] Care Team Providers Care Product Development Worker Name Role Phone Lon Graham DO Primary Care Provider [phone]- [phone] Reason for Visit * Reason Onset Date Comments MEDICATION REFILL 07/27/2023 Encounter Details Date Type Department Care Team (Late st Contact Info) Description 07/27/2023 Refill [facility] - Neurosurgery [address] [place] [address] Bhargav Artis MD [address] [place] [address] MEDICATION REFILL Social History Tobacco Use Types Packs/Day Years Used Date Smoking Tobacco: Former Cigarettes 1 40 0 05/1982 - 05/2022 Smokeless Tobacco: Never Alcohol Use Standard Drinks/Week Comments Yes 0 [...] Recorded Patient Health Questionnaire-2 Score 0 05/23/2023 [facility] [place] of Occupat ional Health - Occupational Stress [...] place to sleep or slept in a assisted (including now)? No 03/28/2023 Sex and Gender Information Value Date Recorded Sex Assigned at Not on file Legal Sex Male 1:29 PM CDT Gender Identity Not on file Sexual Orientation Not on file documented as of this encounter Functional Status * Is person deaf or have serious hearing difficulty? Answer Date of Assessment Author No 03/28/2023 11:26 PM Jamie Bonilla RN * Is person blind or have serious difficulty seeing? Answer Date of Assessment Author No 03/28/2023 11:26 PM Jamie Bonilla RN * Does person have serious difficulty walking/climbing stairs? Answer Date of Assessment Author Yes 03/28/2023 11:26 PM Jamie Bonilla RN * Does person have difficulty dressing/bathing? Answer Date of Assessment Author No 03/28/2023 11:26 PM Jamie Bonilla RN * Does person have difficulty doing errands alone? Answer Date of Assessment Author No 03/28/2023 11:26 PM Jamie Bonilla RN documented as of this encounter Mental Status * Does person have difficulty concentrating/remembering/making decisions? Answer Entry Date Author No 03/28/2023 11:26 PM Jamie Bonilla RN documented in this encounter Plan of Treatment Not on file documented as of this encounter Visit Diagnoses Not on filedocumented in this encounter Care Teams Product Development Worker Relationship Specialty Start Date End Date Lon Graham DO PCP - General Internal Medicine 12/27/22 documented as of this encounter
[2024-06-11 09:41] VITALS: BP 134/68; PULSE 64; RESP 16; TEMP 37.3; O2SAT 98; BMI 30.2
[2024-06-11] MEDS: LACTATED RINGERS 1,000 ML 30 ML IV CONT (10:10)
--- NOTE | 2024-06-11 11:30 | SUR.PREOP ---
1130- Patient aware procedure start time delayed. Patient denying needs at this time and verbalized understanding.
--- NOTE | 2024-06-11 11:37 | P.PNAN_ITS ---
Anes - Initial Pre Proc Eval Procedure: Operation Date: 06/11/24 11:30 Proposed Procedures p Thermal Radio Frequency Ablation Right L3, L4, L5 Medial Branch/Dorsal Ramus Addressing Right L4-5, L5-S1 Facet Joints Under Fluoroscopic Guidance - Lucio Bryant MD Date/Time: 06/11/24 11:37 Surgeon: Lucio Bryant MD Pre Op Diagnosis: spondyolithesis of lumbosacral region Patient Data Age: 64 Gender: M Height: 1.77 m Weight: 94.1 kg Last Vital Signs Temp 37.3 C 06/11/24 09:41 Pulse 64 06/11/24 09:41 Resp 16 06/11/24 09:41 BP 134/68 06/11/24 09:41 Pulse Ox 98 06/11/24 09:41 O2 Del Method Room Air 06/11/24 09:41 Allergies Allergy/AdvReac Type Severity Reaction Status Date / Time Penicillins Allergy Unknown Skin Verified 06/11/24 10:15 Reaction sulfamethoxazole Allergy Unknown HIVES Verified 06/11/24 10:15 trimethoprim Allergy Unknown HIVES Verified 06/11/24 10:15 Home Medications ?Medication ?Instructions ?Recorded ?Confirmed ?Type aspirin 81 mg tablet,delayed 81 mg PO DAILY 03/14/24 06/11/24 History release (Adult Low Dose Aspirin) atorvastatin 20 mg tablet 20 mg PO QHS #90 tabs 04/03/24 06/11/24 Rx hydrochlorothiazide 12.5 mg tablet 12.5 mg PO DAILY #90 tabs 04/03/24 06/11/24 Rx lisinopril 30 mg tablet 15 mg (1/2 x 30 mg) PO DAILY #45 04/24/24 06/11/24 Rx tabs sertraline 100 mg tablet See Rx Instructions .Route 04/24/24 06/11/24 Rx .COMPLEX #90 tabs testosterone cypionate 200 mg/mL 120 mg (0.6 mL) IM WEEKLY #10 mL 05/07/24 05/31/24 Rx intramuscular oil (Depo-Testosterone) gabapentin 300 mg capsule 600 mg (2 x 300 mg) PO BID #360 05/27/24 06/11/24 Rx caps omeprazole 40 mg capsule,delayed 40 mg PO DAILY #90 caps 05/27/24 06/11/24 Rx release multivitamin 1 tablet PO DAILY 05/31/24 06/11/24 History Patient hx anesthesia problems: none Family hx anesthesia problems: none Results Review: All pre-operative results and documents have been reviewed as part of the pre- operative evaluation. [facility] Past Medical History Medical History Long-term current use of testosterone cypionate Male hypogonadism Chronic pain Cervical vertebral fusion Lumbar radiculopathy, chronic COPD (chronic obstructive pulmonary disease) Lumbar stenosis High cholesterol History of kidney stones GERD (gastroesophageal reflux disease) Fibromyalgia Anxiety Essential (primary) hypertension Surgical History Surgical History Status post lumbar spine surgery for decompression of spinal cord History of back surgery 4 times Feb/Mar 2023 Hx of fusion of cervical spine Epidermal cyst Kidney stone removed 2016 Family History Family History Father Hypertension Sibling Hypertension Mother Family history of malignant neoplasm Hodgkin lymphoma Grandparent Liver problem Alcohol abuse Social History Social History Smoking packs per day: 1 Smoking cigarettes per day: 20.0 Years smoked: 40 Smoking pack-years: 40.00 Smoking status: Former smoker Tobacco type: cigarettes Second hand tobacco smoke exposure: No Smoking end date: 06/24/22 Additional smoking assessment comments: denies Alcohol intake: current Drinks per week: 2 Alcohol use details: 2 per week Substance use: never Do You Feel Safe in your Home?: Yes Lack of Transportation: No Lack of Food: Never True Current Housing: I Have Housing Concerned About Future Housing: No Difficulty Paying Gas/Electric Bills: No Difficulty Paying for Meds: No Currently Unemployed: No Education: Associate Degree Difficulty w/ Childcare or Family Care: No Living arrangements: with family Additional living arrangements comments: 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/Education: 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 Gender identity (if verbalized by the patient): Male Spiritual care concerns: No Anes - Eval Final PreProcedure Day of Procedure 06/11/24 11:37 Patient weight: obese Heart: regular rate and rhythm Lungs: clear to auscultation and normal air movement Airway: Mallampati scale class II Neurological: alert and oriented Last oral intake: >/= 8 hours ASA classification: III Emergent: no Anesthetic plan: proceed Anesthesia type and monitoring: monitored anesthesia care and standard monitoring Results Review: All pre-operative results and documents have been reviewed as part of the pre- operative evaluation. Informed Consent: The patient's anesthetic plan and its attendant risks and benefits were discussed with the patient/family/POA. Questions were solicited and answers provided to the satisfaction of the patient/family/POA.
--- NOTE | 2024-06-11 12:58 | PM.HPGS ---
History of Present Illness History of Present Illness Consent: Risks, benefits, and alternatives have been discussed and questions answered. Patient agrees to proceed with procedure. Chief complaint: lumbosacral spondylosis, chronic lbp Narrative: Baudilio Malone is a 64 year old male with chronic, recalcitrant and disabling right lumbosacral back pain secondary to degenerative spondylosis with failure to respond to aggressive conservative measures including PT, oral and topical analgesics, opioid and nonopioid analgesics, rest, time and activity/behavioral modification over the past 1-2 years who presents for thermal Rf ablation of the right L3, L4, L5 medial branches/dorsal ramus addressing the ipsilateral L4-5, L5-S1 facet joints under fluoroscopic guidance and with contrast control. Review of Systems Review of Systems: Patient denies any new infectious, allergic, cardiopulmonary, neurologic or constitutional symptoms or changes in activity tolerance or exercise capacity including new or progressive SOB/TORIBIO, peripheral edema, productive cough, dysuria, nausea/vomiting, diarrhea, weight change, fevers/chills/night sweats, new or progressive neurologic deficit, cognitive or mood changes since last seen, except as documented in the HPI. All systems reviewed & are unremarkable except as noted in HPI and below PMFSH Past Medical History Medical History Long-term current use of testosterone cypionate Male hypogonadism Chronic pain Cervical vertebral fusion Lumbar radiculopathy, chronic COPD (chronic obstructive pulmonary disease) Lumbar stenosis High cholesterol History of kidney stones GERD (gastroesophageal reflux disease) Fibromyalgia Anxiety Essential (primary) hypertension Surgical History Surgical History Status post lumbar spine surgery for decompression of spinal cord History of back surgery 4 times Feb/Mar 2023 Hx of fusion of cervical spine Epidermal cyst Kidney stone removed 2016 Family History Family History Father Hypertension Sibling Hypertension Mother Family history of malignant neoplasm Hodgkin lymphoma Grandparent Liver problem Alcohol abuse Social History Social History Smoking packs per day: 1 Smoking cigarettes per day: 20.0 Years smoked: 40 Smoking pack-years: 40.00 Smoking status: Former smoker Tobacco type: cigarettes Second hand tobacco smoke exposure: No Smoking end date: 06/24/22 Additional smoking assessment comments: denies Alcohol intake: current Drinks per week: 2 Alcohol use details: 2 per week Substance use: never Do You Feel Safe in your Home?: Yes Lack of Transportation: No Lack of Food: Never True Current Housing: I Have Housing Concerned About Future Housing: No Difficulty Paying Gas/Electric Bills: No Difficulty Paying for Meds: No Currently Unemployed: No Education: Associate Degree Difficulty w/ Childcare or Family Care: No Living arrangements: with family Additional living arrangements comments: Occupation/Education: occupation 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 Gender identity (if verbalized by the patient): Male Spiritual care concerns: No Meds Home Medications and Allergies Home Medications ?Medication ?Instructions ?Recorded ?Confirmed ?Type aspirin 81 mg tablet,delayed 81 mg PO DAILY 03/14/24 06/11/24 History release (Adult Low Dose Aspirin) atorvastatin 20 mg tablet 20 mg PO QHS #90 tabs 04/03/24 06/11/24 Rx hydrochlorothiazide 12.5 mg tablet 12.5 mg PO DAILY #90 tabs 04/03/24 06/11/24 Rx lisinopril 30 mg tablet 15 mg (1/2 x 30 mg) PO DAILY #45 04/24/24 06/11/24 Rx tabs sertraline 100 mg tablet See Rx Instructions .Route 04/24/24 06/11/24 Rx .COMPLEX #90 tabs testosterone cypionate 200 mg/mL 120 mg (0.6 mL) IM WEEKLY #10 mL 05/07/24 05/31/24 Rx intramuscular oil (Depo-Testosterone) gabapentin 300 mg capsule 600 mg (2 x 300 mg) PO BID #360 05/27/24 06/11/24 Rx caps omeprazole 40 mg capsule,delayed 40 mg PO DAILY #90 caps 05/27/24 06/11/24 Rx release multivitamin 1 tablet PO DAILY 05/31/24 06/11/24 History Allergies Allergy/AdvReac Type Severity Reaction Status Date / Time Penicillins Allergy Unknown Skin Verified 06/11/24 10:15 Reaction sulfamethoxazole Allergy Unknown HIVES Verified 06/11/24 10:15 trimethoprim Allergy Unknown HIVES Verified 06/11/24 10:15 Vital Signs Vital Signs - 24 hr 06/11/24 09:41 Temperature 99.1 F Pulse Rate 64 Respiratory Rate 16 Blood Pressure 134/68 Pulse Oximetry 98 Oxygen Delivery Room Air Exam Narrative: The patient's physical exam is essentially unchanged from prior examination on 04/08/24. Specifically, patient demonstrates normal lung capacity, tidal volume and respiratory rate without wheezes, crackles, rales or rubs. Heart rate and rhythm are regular without murmurs, gallops or rubs. No JVD. Pulses 2+ globally without increasing peripheral edema. AAOx3 with no evidence of confusion, intoxication or altered mental state, NC/AT without acute distress or altered consciousness. Speech, cognition, mood, insight and judgment at baseline and within normal limits. Assessment and Plan Assessment and plan (1) Lumbosacral spondylosis: Code(s): M47.817 - Spondylosis without myelopathy or radiculopathy, lumbosacral region Status: Acute (2) Dorsalgia: Code(s): M54.9 - Dorsalgia, unspecified Status: Acute (3) Chronic pain: Code(s): G89.29 - Other chronic pain Status: Acute Plan proceed as planned with thermal Rf ablation of the right L3, L4, L5 medial branches/dorsal ramus addressing the ipsilateral L4-5, L5-S1 facet joints under fluoroscopic guidance and with contrast control.
--- NOTE | 2024-06-11 13:02 | WPDHPUPDATE1 ---
History and Physical Update Update Date/Time: 06/11/24 13:02 History and Physical has been reviewed, including an updated exam of the patient. There are NO changes in the patient's condition. Risks, benefits, and alternatives have been discussed and questions answered. Patient agrees to proceed with procedure.
--- NOTE | 2024-06-11 13:03 | P.OP_ITS ---
Procedure Note - Detailed Date of Procedure 06/11/24 Pre-op Diagnosis lumbosacral spondylosis, chronic lbp Post-op Diagnosis Same Procedure Performed Thermal Radiofrequency Ablation of the Right Lumbar Medial Branches/Dorsal Ramus at the L3, L4, L5 Levels Treating the Ipsilateral L4-5, L5-S1 Facet Joints Under Fluoroscopic Guidance (2 Levels Treated). Surgeon Lucio Bryant MD Printed Circuit Boards Router None. Anesthesia Local (w/ MAC) Description of Procedure INFORMED CONSENT: Risks, benefits and alternatives to the procedure were discussed in detail with the patient who expressed explicit understanding and consent to proceed. Patient was informed verbally and in written form regarding the risks associated with the procedure including the low risk of serious infection, bleeding/bruising, allergic reaction, nerve or organ injury, paralysis, procedural site pain or discomfort, worsening pain and/or mobility, failure to treat and/or disfigurement. The patient expressed explicit understanding and consent to proceed. All materials required for the procedure were available prior to procedure start. Site and side were marked prior to procedure and confirmed in the presence of the patient. PROCEDURE IN DETAIL: The patient was brought to the procedural suite and placed in the prone position. Patient was made comfortable with use of pillows under the head/chest, hips and ankles. ASA standard monitors were applied and used throughout the procedure. Skin overlying the injection site on the affected side(s) was prepared broadly with ChloraPrep applicator and draped in a sterile manner. Aseptic technique was used throughout. The endplates of the vertebral bodies at the site(s) of interest were aligned in the AP view. Ipsilateral oblique angulation was utilized to optimize visualization of the intersection between the superior articulating process and transverse process at each target site. Local anesthesia was established by infiltration with approximately 5 mL of 1% lidocaine via a 1-1/2 inch 27-gauge needle divided over each site treated. A 16-gauge 150mm Awesome.meian RF needle with curved 10mm active tip was advanced in the AP view until the needle tip contacted the periosteum at the target site, the right L3 medial branch. Lateral view was utilized to adjust and confirm the appropriate placement of the needle tip just anterior to the facet line, superior to the pedicle and posterior to the foramen. Grounding electrode was in place and functioning. The appropriately-sized RF cannula was inserted into the RF needle and motor stimulation was performed with no subjective or objective evidence of recruited muscle activity with stimulation up to 2.0 volts at a frequency of 2Hz. 1.5 mL of 2.0% PF lidocaine was injected after negative aspiration. After a 90s pause, lesioning was performed to 90 degrees centigrade for 90s ensuring lack of symptoms in the extremity throughout. Needle was rotated 180 degrees and lesioning repeated in a similar manner. Patient tolerated this well. No parasthesias were elicited. Needle was removed completely intact without difficulty. The same procedure was repeated for all intended levels/ structures on the ipsilateral side, right L4, L5 medial branch/dorsal ramus with identical metho dology, modified to compensate for new location, with similar results and no evidence of complication. Images were saved and documented in the patient chart. Patient's skin was cleansed and sterile bandage applied. The patient tolerated the procedure well. The patient was transported to the recovery area in stable condition where they were observed for an appropriate amount of time prior to discharge, without evidence of complication. The patient was instructed to avoid excessive activity for the next 48 hours, including climbing and frequent use of stairs. Showers only for 48 hours. They were instructed not to drive or operate heavy machinery for 24 hours. They are to monitor for severe headaches, fevers, chills, night sweats, erythema/swelling at the site or any other signs of infection, bleeding/bruising, bowel or bladder changes as well as new pain, weakness or numbness in the upper or lower extremity. Should they notice these changes, they are instructed to call our office immediately or report directly to the nearest Emergency Department if no answer or if after posted office hours. COMPLICATIONS: None COMMENTS: None Complications No immediate complications Condition Stable Disposition PACU [facility] Billing Surgery - Charge Forward: Surgery Billing
[2024-06-11] MEDS: LIDOCAINE 2% PF LOCAL INJ 5 ML VIAL INFILTRATE (13:36)
[2024-06-11] MEDS: BUPivacaine HCL 0.5% 10 ML AMP 5 ML INFILTRATE (13:37)
[2024-06-11 13:48] VITALS: BP 148/74; PULSE 65; RESP 14; O2SAT 94
[2024-06-11 14:18] VITALS: BP 137/64; PULSE 61
== END 2024-06-11 14:34 | disposition home or self-care (01) ==
PROVIDERS: PCP Internal Medicine; Visit Provider Anesthesiology Pain Medicine
PROC: (CPT 64635; principal; 2024-06-11 11:30)
DX: M47.817 Spondylosis without myelopathy or radiculopathy, lumbosacral region (principal); M43.17 Spondylolisthesis, lumbosacral region; M48.061 Spinal stenosis, lumbar region without neurogenic claudication; G89.29 Other chronic pain; I10 Essential (primary) hypertension; E29.1 Testicular hypofunction; J44.9 Chronic obstructive pulmonary disease, unspecified; K21.9 Gastro-esophageal reflux disease without esophagitis; F41.9 Anxiety disorder, unspecified; M79.7 Fibromyalgia; E66.9 Obesity, unspecified; Z68.30 Body mass index [BMI] 30.0-30.9, adult; Z79.82 Long term (current) use of aspirin; Z79.890 Hormone replacement therapy; Z98.890 Other specified postprocedural states; Z98.1 Arthrodesis status; Z87.891 Personal history of nicotine dependence; Z87.442 Personal history of urinary calculi; Z80.7 Family history of other malignant neoplasms of lymphoid, hematopoietic and related tissues
CPT/HCPCS: 64635; 64636; 99199; J2003; J2250; J2405; J3010; J7120

== ENCOUNTER 2024-06-25 00:16 | Day surgery (SDC) | payer MEDICARE, SELFPAY ==
--- NOTE | 2024-06-24 11:46 | PC.NURSE ---
Report to the Outpatient Waiting Room, entrance under the green pavilion located off [facility], at time 3 PM on date _06/25/24 . Planned Procedure Time: _4 PM .? Time changes happen often and if your time is changed the preop area will call you the afternoon before. - You and your visitor will be asked to self-screen and do not enter if you have any COVID symptoms. Please call surgeon if you need to reschedule. - A mask is optional within the hospital at this time. MAY HAVE LIGHT LUNCH PER DR RAMIRES DO NOT EAT/DRINK OTHER THAN SMALL AMOUNT WATER 2 HOURS PRIOR TO PROCEDURE Take only the following medications with a SIP of water on the morning of surgery: ROUTINE MEDS DO NOT STOP ANY OF YOUR OTHER PRESCRIPTION MEDICATIONS PRIOR TO SURGERY EXCEPT THE FOLLOWING Medications to discontinue per physician NONE Please no make-up, nail french, hairspray, perfume, deodorant, or body powder the day of surgery.? No jewelry (including any body piercings) or valuables the day of surgery, leave them at home.? Please take a shower or bath the night before,AND the morning of, surgery with an antibacterial soap.? Wear comfortable, loose fitting clothing.? Children are encouraged to wear pajamas. - Jewelry must be removed prior to entering the operating room.? Rings and piercings that are not removed may be cut off. - The hospital will not accept responsibility for valuables.? - Please leave all valuables, including medications, at home the day of surgery. If you are going home after surgery, a licensed flag car driver must drive you home.? - NO public transportation without another adult if you receive anesthesia. - We recommend that an adult stay with you for 24 hours following discharge. - We also recommend that you do not drive, make important decision, drink alcoholic beverages, or take any drugs that were not prescribed by your health care provider for at least 24 hours after your discharge time. DO NOT DRIVE 24 HOURS AFTER PROCEDURE PER DR RAMIRES For Pediatric surgeries, we recommend two adults accompany the child home. Follow any additional instructions given to you from your surgeon. Telephone instructions given to __PATIENT and asked if any additional questions and then verbalized understanding. Patient advised to call surgeon office or pre surgery nurse liaison [phone] if any additional questions.
[2024-06-24 11:52] VITALS: BMI 30.1
--- NOTE | ~2024-06-25 | XR_ITS ---
EXAMINATION: XR fluoroscopy no charge DATE: 06/25/2024 14:10 CDT INDICATION: RIGHT L4-5, L5-S1 TRANSFORAMINAL EPI STEROID INJ . TECHNIQUE: 4 fluoroscopic images and 3 cine clips of the lumbar spine were obtained during right L4-5 and L5-S1 transforaminal epidural steroid injection, performed by Lucio Bryant MD. I was not pre sent during the procedure. Fluoroscopy exposure time was 31 seconds. Air Kerma 30.970 mGy. DAP 5.1784 mGym2. COMPARISON: None FINDINGS/IMPRESSION: Fluoroscopic documentation of right L4-5 and L5-S1 transforaminal epidural steroid injection. Please refer to the operative note for complete procedural details. Reviewed, dictated and finalized at location K.
--- OUTSIDE RECORDS SUMMARY | 2024-06-25 00:18 | XMS_ITS | Encounter Summary ---
Author Organization [facility] Address [facility] [facility] [place] [address] Care Team Providers Care Internet Sales Manager Name Role Phone Lon Graham DO Primary Care Provider [phone]- [phone] Reason for Visit * Reason Onset Date Comments MEDICATION REFILL 07/27/2023 Encounter Details Date Type Department Care Team (Late st Contact Info) Description 07/27/2023 Refill [facility] - Neurosurgery [address] [place] [address] Bhargav Artis MD [address] [place] [address] MEDICATION REFILL Social History Tobacco [...] Recorded Patient Health Questionnaire-2 Score 0 05/23/2023 [facility] [place] of Occupat ional Health - Occupational Stress [...] place to sleep or slept in a retirement (including now)? No 03/28/2023 Sex and Gender [...] on filedocumented in this encounter Care Teams Internet Sales Manager Relationship Specialty Start Date End Date Lon Graham DO PCP - General Internal Medicine 12/27/22 documented as of this encounter
--- OUTSIDE RECORDS SUMMARY | 2024-06-25 00:19 | XMS_ITS | Referral Summary ---
Author Organization [facility] Address [address] [place] [address] Care Team Providers Care Covering Machine Operator Name Role Phone Lon Graham DO Primary Care Provider +1- [phone] Allergies Active Allergy Reactions Criticality Noted Date [...] (11/19/2020): Added automatically from request for surgery [id number] Neck pain 07/24/2020 Immunizations Immunization Administration Dates [...] on file Legal Sex Male 2:13 AM TRANSPORT ANALYST Gender Identity Not on file Sexual Orientation Straight 10/21/2020 5: 07 PM CDT Last Filed Vital Signs Vital Sign Reading Time Taken Comments Blood Pressure 123/72 07/02/2021 2:31 PM CDT Pulse 53 07/02/2021 2:31 PM CDT Temperature 36.4 C (97.5 F) 12/31/2020 2:40 PM TRANSPORT ANALYST Respiratory Rate 20 12/31/2020 12:15 PM TRANSPORT ANALYST Oxygen Saturation 96% 12/31/2020 12:15 PM TRANSPORT ANALYST Inhaled Oxygen Concentration - - Weight 98.2 [...] home safety. Medical Devices Implanted Type Area Electric Plater Device Identifier Shelf Expiration Date Model / Serial / Lot [place] Spine [id number] Cervical Anterior 6d Cage Spinal Tritanium Sterile Latex Free - [id number] Implanted:Qty : 1 on 12/31/2020 by Jaleel Crum MD at [facility] Cage N/A: Spine Cervical [place] Spine [id number] 10/29/2022 [id number] / / [id number] Vitoss Ba2x Bioactive Bone Graft Substitute Implanted:Qty : 1 on 12/31/2020 by Jaleel Crum MD at [facility] N/A: Spine Cervical [place] [employer]ics [id number] 03/19/2021 [id number] / / [id number] [place] Spine [id number] Plate 20mm Bone [place] Spine Cervical 1 Level Nonsterile Latex Free - [id number] Implanted:Qty : 1 on 12/31/2020 by Jaleel Crum MD at [facility] N/A: Spine Cervical [place] Spine [id number] / / IN TRAY Abbie Spine [id number] zark 4mm 18mm Self Start Variable Angle Spine Cervical Screw - [id number] Implanted:Qty : 4 on 12/31/2020 by Jaleel Crum MD at [facility] N/A: Spine Cervical [place] Spine [id number] DA / / IN TRAY Insurance [place] [employer] [facility] Care Teams Covering Machine Operator Relationship Specialty Start Date End Date Lon Graham DO PCP - General Internal Medicine 06/08/20
--- OUTSIDE RECORDS SUMMARY | 2024-06-25 00:19 | XMS_ITS | Clinical Summary ---
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 CABINET FINISHER Gender Identity Not on file Sexual Orientation Straight 10/21/2020 5: 07 PM CDT Obstetrics History Last Filed Vital Signs Vital Sign Reading Time Taken Comments Blood Pressure 123/72 07/02/2021 2:31 PM CDT Pulse 53 07/02/2021 2:31 PM CDT Temperature 36.4 C (97.5 F) 12/31/2020 2:40 PM CABINET FINISHER Respiratory Rate 20 12/31/2020 12:15 PM CABINET FINISHER Oxygen Saturation 96% 12/31/2020 12:15 PM CABINET FINISHER Inhaled Oxygen Concentration - - Weight 98.2 [...] on stairs Contact your local community or [facility] for information on exercise, fall prevention programs, or options for improving home safety. Medical Devices Implanted Type Area Tonsorial Artist Device Identifier Shelf Expiration Date Model / Serial / Lot Abbie Spine [id number] Cervical Anterior 6d Cage Spinal Tritanium Sterile Latex Free - [id number] Implanted:Qty : 1 on 12/31/2020 by Jaleel Crum MD at [facility] Cage N/A: Spine Cervical [place] Spine [id number] 10/29/2022 [id number] / / [id number] Vitoss Ba2x Bioactive Bone Graft Substitute Implanted:Qty : 1 on 12/31/2020 by Jaleel Crum MD at [facility] N/A: Spine Cervical Abbie [employer]ics [id number] 03/19/2021 [id number] / / [id number] Abbie Spine [id number] Plate 20mm Bone [place] Spine Cervical 1 Level Nonsterile Latex Free - [id number] Implanted:Qty : 1 on 12/31/2020 by Jaleel Crum MD at [facility] N/A: Spine Cervical [place] Spine [id number] / / IN TRAY [place] Spine [id number] zark 4mm 18mm Self Start Variable Angle Spine Cervical Screw - [id number] Implanted:Qty : 4 on 12/31/2020 by Jaleel Crum MD at [facility] N/A: Spine Cervical Abbie Spine [id number] DA / / IN TRAY Insurance [place] Care Teams Machine Splitter Relationship Specialty Start Date End Date Lon Graham DO PCP - General Internal Medicine 06/08/20
--- OUTSIDE RECORDS SUMMARY | 2024-06-25 00:19 | XMS_ITS | Clinical Summary ---
Author Organization [facility] Address [address] [place] [address] Care Team Providers Care Paint Mixer Machine Name Role Phone Lon Graham DO Primary Care Provider +1- [phone] Source Comments [facility],non-owned Affiliates and Associated Physician Practices is amultiple site organization consisting of ambulatory clinics and hospital sitesin [place], [place], [place] and [place]. This disclosure is being madepursuant to the Care Everywhere program and may not contain all information available regarding this patient. Last updated 17.[facility] Allergies Active Allergy Reactions Criticality Noted Date [...] Recorded Patient Health Questionnaire-2 Score 0 05/23/2023 [facility] [place] of Occupat ional Health - Occupational Stress [...] place to sleep or slept in a skilled nursing (including now)? No 03/28/2023 Sex and Gender [...] Oxygen Concentration 21% 04/10/2023 6 :30 AM BOTANY TEACHER Weight 90.5 kg (199 lb 9.6 oz) [...] this topic Medical Devices Implanted Type Area Hat Sprayer Device Identifier Shelf Expiration Date Model / Serial / Lot Seal Dural Auto Spr Ext Tip 5ml Implanted:Qty: 1 on 02/24/2023 by Bhargav Artis MD at [facility] N/A: Spine Lumbar Abbie Craniomaxillofacial [id number] / / Graft Tissue Drgn + Bvn Clgn Mtrx 2x2in Implanted:Qty: 1 on 02/24/2023 by Bhargav Artis MD at [facility] N/A: Spine Lumbar Integra [employer] [id number] / / Seal Dural Auto Spr Ext Tip 5ml Implanted:Qty: 1 on 02/24/2023 by Bhargav Artis MD at [facility] N/A: Spine Lumbar Erin Craniomaxillofacial NUS-109 / / Seal Dural Auto Spr Ext Tip 5ml Implanted:Qty: 1 on 04/10/2023 by Bhargav Artis MD at [facility] Erin Craniomaxillofacial 12/20/2024 [id number]-[id number] / / [id number] Graft Tissue Drgn + Bvn Clgn Mtrx 2x2in Implanted:Qty: 1 on 04/10/2023 by Bhargav Artis MD at [facility] N/A: Spine Lumbar Integra Neurosciences 10/20/2025 [id number] / / [id number] Procedures Procedure Name Priority Date/Time Associated Diagnosis Comments COMPREHENSIVE METABOLIC PANEL Routine 05/23/2023 9:22 AM CDT Postoperative infection, unspecified type, initial encounter from Last 3 Months or Most Recently Relevant to Health Maintenance Results * (ABNORMAL) COMPREHENSIVE METABOLIC PANEL (05/23/2023 9:22 AM CDT) BUN 16 7 - 26 mg/dL 05/23/2023 4:21 PM [facility] Creatinine 0.70(L) 0.71 - 1.16 mg/dL 05/23/2023 4:21 PM [facility] Sodium 141 136 - 145 mmol/L 05/23/2023 4:21 PM [facility] Potassium 3.7 3.5 - 4.5 mmol/L 05/23/2023 4:21 PM [facility] Chloride 105 98 - 107 mmol/L 05/23/2023 4:21 PM [facility] CO2 23 22 - 29 mmol/L 05/23/2023 4:21 PM [facility] Glucose 66(L) 70 - 115 mg/dL 05/23/2023 4:21 PM [facility] Calcium 9.8 8.4 - 10.2 mg/dL 05/23/2023 4:21 PM [facility] Protein Total 7.3 6.0 - 8.3 g/dL 05/23/2023 4:21 PM [facility] Albumin 3.6 3.4 - 5.0 g/dL 05/23/2023 4:21 PM [facility] Bilirubin Total 0.5 0.2 - 1.2 mg/dL 05/23/2023 4:21 PM [facility] Alkaline Phosphatase 61 40 - 150 U/L 05/23/2023 4:21 PM [facility] ALT 27 5 - 55 U/L 05/23/2023 4:21 PM [facility] AST 32 5 - 34 U/L 05/23/2023 4:21 PM [facility] Anion Gap 13 6 - 16 05/23/2023 4:21 PM [facility] BUN/Creatinine Ratio 23 7 - 23 05/23/2023 4:21 PM [facility] Osmolality Calculated 291 275 - 295 mOsm/kg 05/23/2023 4:21 PM [facility] Albumin/Globulin Ratio 1.0(L) 1.1 - 2.3 05/23/2023 4:21 PM [facility] eGFR by CKD-EPI >90 >=90 mL/min/1.7 3 m2 05/23/2023 4:21 PM [facility] Blood BLOOD SPECIMEN / Unknown Lab Venipuncture / Unknown 05/23/2023 9:22 AM CDT 05/23/2023 3:47 PM T us Jill Grullon PA-C LAB - CHEMISTRY ORDERABLES F inal Result [facility] [address] [place] [address], [facility] [phone] from Last 3 Months or Most Recently [...] 3:33 PM 03/01/2023 2:53 PM Care Teams Paint Mixer Machine Relationship Specialty Start Date End Date Lon Graham DO PCP - General Internal Medicine 12/27/22
--- OUTSIDE RECORDS SUMMARY | 2024-06-25 00:19 | XMS_ITS | Patient Health Record ---
Author Organization [facility] Address [address] [place] [address] Care Team Providers Care Lacrosse Coach Name Role Phone Patel James Primary Care Provider Reason For Referral [...] Insured Coverage Start Date Coverage End Date [facility] [address] [place] [address] [id number] Christiano Johnson Self - patient is the insured 1
[2024-06-25 13:39] VITALS: BP 122/65; PULSE 61; TEMP 36.4; O2SAT 99
--- NOTE | 2024-06-25 14:05 | WPDHPUPDATE1 ---
History and Physical Update Update Date/Time: 06/25/24 14:05 History and Physical has been reviewed, including an updated exam of the patient. There are NO changes in the patient's condition. Risks, benefits, and alternatives have been discussed and questions answered. Patient agrees to proceed with procedure.
--- NOTE | 2024-06-25 14:06 | P.OP_ITS ---
Procedure Note - Detailed Date of Procedure 06/25/24 Pre-op Diagnosis Lumbosacral radiculopathy, lumbar neural foraminal stenosis Post-op Diagnosis Same Procedure Performed Right Lumbar Transforaminal Epidural Steroid Injection under Fluoroscopic Guidance and with Contrast Control at L4-5, L5-S1. Surgeon Lucio Bryant MD Anesthesia Local Description of Procedure INFORMED CONSENT: Risks, benefits and alternatives to the procedure were discussed in detail with the patient who expressed explicit understanding and consent to proceed. Patient was informed verbally and in written form regarding the risks associated with the procedure including the low risk of serious infection, bleeding/bruising, allergic reaction, nerve or organ injury, paralysis, procedural site pain or discomfort, worsening pain and/or mobility, failure to treat and/or disfigurement. The patient expressed explicit unders tanding and consent to proceed. All materials required for the procedure were available prior to procedure start. Site and side was marked prior to procedure and confirmed in the presence of the patient. PROCEDURE IN DETAIL: The patient was brought to the procedural suite and placed in the prone position. Patient was made comfortable with use of pillows under the head/chest, hips and ankles. Skin overlying the injection site was prepared broadly with ChloraPrep applicator and draped in a sterile manner. Aseptic technique was employed throughout. The endplates of the vertebral body at the site of interest were aligned in the AP view. Ipsilateral oblique angulation was utilized to better visualize the neuroforamen of interest. Local anesthesia was established by infiltration with approximately 5 mL of 0.5% PF lidocaine via a 1-1/2 inch 27-gauge needle. A 22-gauge 5.0 inch Jean-Claude (pencil point) spinal needle was advanced until the needle approached the 6 o'clock position on the pedicle just superior to the exiting nerve root. on the right at L4-5. Lateral view was utilized to confirm appropriate position of the needle tip within the superior and posterior portion of the respective foramen. In an AP view, 1 mL of Omnipaque 300 contrast medium was injected after negative aspiration for CSF, blood or other bodily fluid, showing appropriate neurogram without evidence of intravascular or intrathecal spread of contrast. Digital subtraction imaging was used with an additional 1ml of the same contrast medium to confirm absence of intravascular contrast spread. A 1mL solution containing 3 mg of betamethasone was injected after negative repeat aspiration. Appropriate spread of the injectate was confirmed with washout of previously injected contrast. No p arasthesias were elicited. Needle was removed completely intact without difficulty. The same exact procedure was repeated for all remaining levels on the ipsilateral side, right L5-S1 neuroforamen, modified as necessary to accommodate for the new target location with identical findings and results and no evidence of complication. Images were saved and documented in the patient chart. Patient's skin was cleaned and sterile bandage applied. The patient tolerated the procedure well. The patient was transported to the recovery area in stable condition where they were observed for an appropriate amount of time prior to discharge, without evidence of complication. The patient was instructed to avoid excessive activity for the next 48 hours, including climbing and frequent use of stairs. Showers only for 48 hours. They were instructed not to drive or operate heavy machinery for 24 hours. They are to monitor for severe headaches, fevers, chills, night sweats, erythema/swelling at the site or any other signs of infection, bleeding/bruising, bowel or bladder changes as well as new pain, weakness or numbness in the upper or lower extremity. Should they notice these changes, they are instructed to call our office immediately or report directly to the nearest Emergency Department if no answer or if after posted office hours. COMPLICATIONS: None COMMENTS: None CONTRAST WASTED: 26 mL Omnipaque 300. STEROID WASTED: 0 mg of betamethasone. Complications No immediate complications Condition Stable Disposition Same day [facility] Billing Surgery - Charge Forward: Surgery Billing
[2024-06-25 14:20] VITALS: BP 181/67; PULSE 65; RESP 16; O2SAT 96
[2024-06-25] MEDS: LIDOCAINE 2% PF LOCAL INJ 5 ML VIAL 10 ML INFILTRATE (14:22)
[2024-06-25] MEDS: BETAMETHASONE SODIUM PHOSPHATE PF INJ 6 MG/ML VIAL INFILTRATE (14:23)
[2024-06-25 14:25] VITALS: BP 171/75; PULSE 65; RESP 18; O2SAT 95
[2024-06-25 14:31] VITALS: BP 145/74; PULSE 63; RESP 16; O2SAT 100
== END 2024-06-25 14:51 | disposition home or self-care (01) ==
PROVIDERS: PCP Internal Medicine; Visit Provider Anesthesiology Pain Medicine
PROC: (CPT 64483; principal; 2024-06-25 16:00)
DX: M54.16 Radiculopathy, lumbar region (principal); M43.17 Spondylolisthesis, lumbosacral region; M48.061 Spinal stenosis, lumbar region without neurogenic claudication; M46.1 Sacroiliitis, not elsewhere classified; M96.1 Postlaminectomy syndrome, not elsewhere classified; G89.29 Other chronic pain; I10 Essential (primary) hypertension; K21.9 Gastro-esophageal reflux disease without esophagitis; E29.1 Testicular hypofunction; M79.7 Fibromyalgia; F41.9 Anxiety disorder, unspecified; Z98.890 Other specified postprocedural states; Z98.1 Arthrodesis status; Z87.891 Personal history of nicotine dependence; Z87.442 Personal history of urinary calculi; Z80.7 Family history of other malignant neoplasms of lymphoid, hematopoietic and related tissues
CPT/HCPCS: 64483; 64484; 99199; J2003

== ENCOUNTER 2024-07-04 06:36 | Outpatient (CLI) | payer MEDICARE, SELFPAY ==
--- NOTE | ~2024-07-04 | MR_ITS ---
MRI of the lumbar spine Clinical History: Radiculopathy Technique: Axial T2-weighted images, and sagittal T1-weighted, T2-weighted, and T2 fat-sat images wer e acquired. Following intravenous administration of 19 cc ProHance gadolinium, T1-weighted fat-sat im aging was performed in the axial and sagittal planes. COMPARISON: 12/13/2022 Findings: No acute fracture seen. 6 mm retrolisthesis of L2 over L3 is present, similar to prior exam . 4 mm retrolisthesis of L3 over L4 is present, similar to prior exam. 3 mm retrolisthesis of L5 over S1 present, similar to prior exam. No acute fracture. No suspicious bone marrow signal abnormality s een. At L1-L2, there is moderate to advanced degenerative disc narrowing. There is minimal disc bulge with mild facet arthropathy. No central canal stenosis. There is mild bilateral neural foraminal narrowin g. At L2-L3, there is advanced degenerative disc narrowing. There is diffuse disc bulge with moderate to advanced facet arthropathy. Probable prior posterior decompression. There is minimal central canal s tenosis. There is severe right neural foraminal narrowing and moderate to severe left neural foramina l narrowing. L3-L4, there is moderate degenerative disc narrowing with probable prior posterior decompression. The re is disc bulge and advanced facet arthropathy. There is moderate central canal stenosis/thecal sac compression. There is severe bilateral neural foraminal narrowing. At L4-L5, there is advanced degenerative disc narrowing. There is disc bulge and severe facet arthrop athy. There is moderate to severe spinal canal stenosis/thecal sac compression, despite prior posteri or decompression. There is severe bilateral neural foraminal, otherwise, left worse than right. At L5-S1, there is mild disc bulge and severe facet arthropathy. No apple central canal stenosis. The re is severe bilateral neural foraminal narrowing. Paravertebral soft tissues are unremarkable aside from expected postoperative change. No abnormal postcontrast enhancement identified. Impression: 6 mm retrolisthesis of L2 over L3. 4 mm retrolisthesis of L3 over L4. 3 mm retrolisthesis of L5 over S1. Severe degenerative spondylosis throughout the lumbar spine, with multilevel neural foraminal narrowi ng and spinal canal stenosis. Please see details above. Reviewed, dictated and finalized at location M. Impression: 6 mm retrolisthesis of L2 over L3. 4 mm retrolisthesis of L3 over L4. 3 mm retrolisthesis of L5 over S1. Severe degenerative spondylosis throughout the lumbar spine, with multilevel ne ural foraminal narrowing and spinal canal stenosis. Please see details above.
--- OUTSIDE RECORDS SUMMARY | 2024-07-04 06:39 | XMS_ITS | Referral Summary ---
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 Medical Devices Implanted Type Area Client Relationship Executive Device Identifier Shelf Expiration Date Model / Serial / Lot Abbie Spine [id number] Cervical Anterior 6d Cage Spinal Tritanium Sterile Latex Free - [id number] Implanted:Qty : 1 on 12/31/2020 by Jaleel Crum MD at [facility] Cage N/A: Spine Cervical Abbie Spine [id number] 10/29/2022 [id number] / / [id number] Vitoss Ba2x Bioactive Bone Graft Substitute Implanted:Qty : 1 on 12/31/2020 by Jaleel Crum MD at [facility] N/A: Spine Cervical Abbie Orthobiologics [id number] 03/19/2021 [id number] / / [id number] Abbie Spine [id number] Plate 20mm Bone Doran Spine Cervical 1 Level Nonsterile Latex Free - [id number] Implanted:Qty : 1 on 12/31/2020 by Jaleel Crum MD at [facility] N/A: Spine Cervical Elgin Spine [id number] / / IN TRAY Abbie Spine [id number] zark 4mm 18mm Self Start Variable Angle Spine Cervical Screw - [id number] Implanted:Qty : 4 on 12/31/2020 by Jaleel Crum MD at [facility] N/A: Spine Cervical Abbie Spine [id number] DA / / IN TRAY Insurance [place] [employer] [place] [facility] Care Teams Video Game Tester Relationship Specialty Start Date End Date Lon Graham DO PCP - General Internal Medicine 06/08/20
--- OUTSIDE RECORDS SUMMARY | 2024-07-04 06:39 | XMS_ITS | Clinical Summary ---
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 OR NURSE Gender Identity Not on file Sexual Orientation Straight 10/21/2020 5: 07 PM CDT Obstetrics History Last Filed Vital Signs Vital Sign Reading Time Taken Comments Blood Pressure 123/72 07/02/2021 2:31 PM CDT Pulse 53 07/02/2021 2:31 PM CDT Temperature 36.4 C (97.5 F) 12/31/2020 2:40 PM CARDIOVASCULAR OR NURSE Respiratory Rate 20 12/31/2020 12:15 PM CARDIOVASCULAR OR NURSE Oxygen Saturation 96% 12/31/2020 12:15 PM CARDIOVASCULAR OR NURSE Inhaled Oxygen Concentration - - Weight 98.2 [...] on stairs Contact your local community or [facility] for information on exercise, fall prevention programs, or options for improving home safety. Medical Devices Implanted Type Area Circular Distributor Device Identifier Shelf Expiration Date Model / Serial / Lot Abbie Spine [id number] Cervical Anterior 6d Cage Spinal Tritanium Sterile Latex Free - [id number] Implanted:Qty : 1 on 12/31/2020 by Jaleel Crum MD at [facility] Cage N/A: Spine Cervical Nixon Spine [id number] 10/29/2022 [id number] / / [id number] Vitoss Ba2x Bioactive Bone Graft Substitute Implanted:Qty : 1 on 12/31/2020 by Jaleel Crum MD at [facility] N/A: Spine Cervical Nixon [employer]ics [id number] 03/19/2021 [id number] / / [id number] Nixon Spine [id number] Plate 20mm Bone [place] Spine Cervical 1 Level Nonsterile Latex Free - [id number] Implanted:Qty : 1 on 12/31/2020 by Jaleel Crum MD at [facility] N/A: Spine Cervical Abbie Spine [id number] / / IN TRAY Nixon Spine [id number] zark 4mm 18mm Self Start Variable Angle Spine Cervical Screw - [id number] Implanted:Qty : 4 on 12/31/2020 by Jaleel Crum MD at [facility] N/A: Spine Cervical Nixon Spine [id number] DA / / IN TRAY Insurance BLUE ACCESS OR BLUE ACCESS OR BLUE ACCESS OR Care Teams Instructor Psychiatric Aide Relationship Specialty Start Date End Date Lon Graham DO PCP - General Internal Medicine 06/08/20
--- OUTSIDE RECORDS SUMMARY | 2024-07-04 06:39 | XMS_ITS | Encounter Summary ---
Author Organization [facility] Address [facility] [place] [address] Care Team Providers Care Experimental Electronics Developer Name Role Phone Lon Graham DO Primary Care Provider [phone]- [phone] Reason for Visit * Reason Onset Date Comments MEDICATION REFILL 07/27/2023 Encounter Details Date Type Department Care Team (Late st Contact Info) Description 07/27/2023 Refill [facility] - Neurosurgery [address] [place] [address] Bhargav Artis MD [address] [place] [address] MEDICATION REFILL Social History Tobacco [...] Recorded Patient Health Questionnaire-2 Score 0 05/23/2023 [facility] Occupat ional Health - Occupational Stress [...] place to sleep or slept in a longterm (including now)? No 03/28/2023 Sex and Gender [...] on filedocumented in this encounter Care Teams Experimental Electronics Developer Relationship Specialty Start Date End Date Lon Graham DO PCP - General Internal Medicine 12/27/22 documented as of this encounter
--- OUTSIDE RECORDS SUMMARY | 2024-07-04 06:40 | XMS_ITS | Patient Health Record ---
Author Organization [facility] Address [address] [place] [address] Care Team Providers Care Lock Plater Name Role Phone Patel James Primary Care [...] Insured Coverage Start Date Coverage End Date [facility] [address] [place] [address] [phone] [id number] Christiano Johnson Self - patient is the insured 1
--- OUTSIDE RECORDS SUMMARY | 2024-07-04 06:40 | XMS_ITS | Clinical Summary ---
Author Organization [facility] Address [address] [place] [address] Care Team Providers Care Material Control Analyst Name Role Phone Lon Graham DO Primary Care Provider +1- [phone] Source Comments [facility],non-owned Affiliates and Associated Physician Practices is amultiple site organization consisting of ambulatory clinics and hospital sitesin [place], [place], [place] and [place]. This disclosure is being madepursuant to the Care Everywhere program and may not contain all information available regarding this patient. Last updated 17.[facility] Allergies Active Allergy Reactions Criticality Noted [...] Recorded Patient Health Questionnaire-2 Score 0 05/23/2023 [facility] [place] of Occupat ional Health - Occupational Stress [...] place to sleep or slept in a fpc (including now)? No 03/28/2023 Sex and Gender [...] Oxygen Concentration 21% 04/10/2023 6 :30 AM TEA AND SPICE SUPERVISOR Weight 90.5 kg (199 lb 9.6 oz) [...] this topic Medical Devices Implanted Type Area Wad Lubricator Device Identifier Shelf Expiration Date Model / Serial / Lot Seal Dural Auto Spr Ext Tip 5ml Implanted:Qty: 1 on 02/24/2023 by Bhargav Artis MD at [facility] N/A: Spine Lumbar Abbie Craniomaxillofacial [id number] / / Graft Tissue Drgn + Bvn Clgn Mtrx 2x2in Implanted:Qty: 1 on 02/24/2023 by Bhargav Artis MD at [facility] N/A: Spine Lumbar Integra Neurosciences [id number] / / Seal Dural Auto Spr Ext Tip 5ml Implanted:Qty: 1 on 02/24/2023 by Bhargav Artis MD at [facility] N/A: Spine Lumbar Abbie Craniomaxillofacial NUS-109 / / Seal Dural Auto Spr Ext Tip 5ml Implanted:Qty: 1 on 04/10/2023 by Bhargav Artis MD at [facility] [place] Craniomaxillofacial 12/20/2024 [id number]-[id number] / / [id number] Graft Tissue Drgn + Bvn Clgn Mtrx 2x2in Implanted:Qty: 1 on 04/10/2023 by Bhargav Artis MD at [facility] N/A: Spine Lumbar Integra Neurosciences 10/20/2025 [id number] / / [id number] Procedures Procedure Name Priority Date/Time Associated Diagnosis Comments COMPREHENSIVE METABOLIC PANEL Routine 05/23/2023 9:22 AM CDT Postoperative infection, unspecified type, initial encounter from Last 3 Months or Most Recently Relevant to Health Maintenance Results * (ABNORMAL) COMPREHENSIVE METABOLIC PANEL (05/23/2023 9:22 AM CDT) BUN 16 7 - 26 mg/dL 05/23/2023 4:21 PM [facility] Creatinine 0.70(L) 0.71 - 1.16 mg/dL 05/23/2023 4:21 PM [facility] Sodium 141 136 - 145 mmol/L 05/23/2023 4:21 PM [facility] Potassium 3.7 3.5 - 4.5 mmol/L 05/23/2023 4:21 PM [facility] Chloride 105 98 - 107 mmol/L 05/23/2023 4:21 PM [facility] CO2 23 22 - 29 mmol/L 05/23/2023 4:21 PM [facility] Glucose 66(L) 70 - 115 mg/dL 05/23/2023 4:21 PM [facility] Calcium 9.8 8.4 - 10.2 mg/dL 05/23/2023 4:21 PM [facility] Protein Total 7.3 6.0 - 8.3 g/dL 05/23/2023 4:21 PM [facility] Albumin 3.6 3.4 - 5.0 g/dL 05/23/2023 4:21 PM [facility] Bilirubin Total 0.5 0.2 - 1.2 mg/dL 05/23/2023 4:21 PM [facility] Alkaline Phosphatase 61 40 - 150 U/L 05/23/2023 4:21 PM [facility] ALT 27 5 - 55 U/L 05/23/2023 4:21 PM [facility] AST 32 5 - 34 U/L 05/23/2023 4:21 PM [facility] Anion Gap 13 6 - 16 05/23/2023 4:21 PM [facility] BUN/Creatinine Ratio 23 7 - 23 05/23/2023 4:21 PM [facility] Osmolality Calculated 291 275 - 295 mOsm/kg 05/23/2023 4:21 PM [facility] Albumin/Globulin Ratio 1.0(L) 1.1 - 2.3 05/23/2023 4:21 PM [facility] eGFR by CKD-EPI >90 >=90 mL/min/1.7 3 m2 05/23/2023 4:21 PM [facility] Blood BLOOD SPECIMEN / Unknown Lab Venipuncture / Unknown 05/23/2023 9:22 AM CDT 05/23/2023 3:47 PM T us Jill Grullon PA-C LAB - CHEMISTRY ORDERABLES F inal Result [facility] [address] [place] [address], [facility] [phone] from Last 3 Months or Most Recently [...] 3:33 PM 03/01/2023 2:53 PM Care Teams Material Control Analyst Relationship Specialty Start Date End Date Lon Graham DO PCP - General Internal Medicine 12/27/22
== END 2024-07-04 06:37 | disposition home or self-care (01) ==
PROVIDERS: PCP Internal Medicine; Visit Provider Anesthesiology Pain Medicine
DX: M47.26 Other spondylosis with radiculopathy, lumbar region (principal); M48.061 Spinal stenosis, lumbar region without neurogenic claudication; M96.1 Postlaminectomy syndrome, not elsewhere classified
CPT/HCPCS: 72158; A9579

== ENCOUNTER 2024-08-19 00:02 | Day surgery (SDC) | payer MEDICARE, SELFPAY ==
[2024-08-16 09:27] VITALS: BMI 30.2
--- NOTE | 2024-08-16 09:35 | PC.NURSE ---
Report to the Outpatient Waiting Room, entrance under the green pavilion located off [facility], at time _2:30pm on date ___08/19/24____. Planned Procedure Time: ___3:30pm .? Time changes happen often and if your time is changed the preop area will call you the afternoon before. - You and your visitor will be asked to self-screen and do not enter if you have any COVID symptoms. Please call surgeon if you need to reschedule. - A mask is optional within the hospital at this time. 1. It is alright to eat a light breakfast/lunch prior to procedure depending on schedule time. Do not eat or drink anything other than scheduled medications with small amounts of clear liquid (water) for two hours prior to procedure. 2. Take a bath/shower the evening before and morning of procedure. 3. Please take your scheduled medications, especially blood pressure and diabetes medications as prescribed, with small sips of water prior to procedure. You may also take your prescribed pain medications as needed. 4. Patient is not allowed to drive 24 hours after procedure. Take only the following medications with a SIP of water on the morning of surgery: All am meds DO NOT STOP ANY OF YOUR OTHER PRESCRIPTION MEDICATIONS PRIOR TO SURGERY EXCEPT THE FOLLOWING Hold all vitamins and supplements for 3 days per anesthesiologist. Medications to discontinue per physician Aspirin for 1 week, pt already off of it since last Monday Date to take last dose___08/09/24 Please no make-up, nail russian, hairspray, perfume, deodorant, or body powder the day of surgery.? No jewelry (including any body piercings) or valuables the day of surgery, leave them at home.? Please take a shower or bath the night before, or the morning of, surgery with an antibacterial soap.? Wear comfortable, loose fitting clothing.? - Jewelry must be removed prior to entering the operating room.? Rings and piercings that are not removed may be cut off. - The hospital will not accept responsibility for valuables.? - Please leave all valuables, including medications, at home the day of surgery. If you are going home after surgery, a licensed ready mix truck driver must drive you home.? - NO public transportation without another adult if you receive anesthesia. - We recommend that an adult stay with you for 24 hours following discharge. - We also recommend that you do not drive, make important decision, drink alcoholic beverages, or take any drugs that were not prescribed by your health care provider for at least 24 hours after your discharge time. Follow any additional instructions given to you from your surgeon. Telephone instructions given to ____Patient and asked if any additional questions and then verbalized understanding. Patient advised to call surgeon office or pre surgery nurse liaison [phone] if any additional questions.
--- NOTE | ~2024-08-19 | XR_ITS ---
EXAMINATION: XR fluoroscopy no charge DATE: 08/19/2024 15:00 CDT INDICATION: INTRA ART STEROID INJ RT SI JT . TECHNIQUE: 3 fluoroscopic images of the right SI joint were obtained during intra-articular steroid i njection of the right SI joint. Fluoroscopy exposure time was 11.6 seconds. Air Kerma 6.9295 mGy. DAP 1.3737 mGym2. COMPARISON: None FINDINGS/IMPRESSION: Fluoroscopic documentation of intra-articular steroid injection of the right SI joint. Please refer to the operative note for complete procedural details. Reviewed, dictated and finalized at location K.
--- NOTE | 2024-08-19 13:21 | WPDHPUPDATE1 ---
History and Physical Update Update Date/Time: 08/19/24 13:21 History and Physical has been reviewed, including an updated exam of the patient. There are NO changes in the patient's condition. Risks, benefits, and alternatives have been discussed and questions answered. Patient agrees to proceed with procedure.
--- NOTE | 2024-08-19 13:22 | W.PM.PROC2 ---
Procedure Note - Detailed Date of Procedure 08/19/24 Pre-op Diagnosis sacroiilitis Post-op Diagnosis Same Procedure Performed Right Sacroiliac Joint Steroid Injection under Fluoroscopic Guidance and with Contrast Control. Surgeon Lucio Bryant MD Invoice Machine Operator None Anesthesia Local Description of Procedure INFORMED CONSENT: Risks, benefits and alternatives to the procedure were discussed in detail with the patient who expressed explicit understanding and consent to proceed. Patient was informed verbally and in written form regarding the risks associated with the procedure including the low risk of serious infection, bleeding/bruising, allergic reaction, nerve or organ injury, paralysis, procedural site pain or discomfort, worsening pain and/or mobility, failure to treat and/or disfigurement. The patient expressed explicit understanding and consent to proceed. All materials required for the procedure were available prior to procedure start. Site and side were marked prior to procedure and confirmed in the presence of the patient. PROCEDURE IN DETAIL: The patient was brought to the procedural suite and placed in the prone position. Patient was made comfortable with use of pillows under the head/chest, hips and ankles. Skin overlying the injection site on the affected side(s) was prepared broadly with ChloraPrep applicator and draped in a sterile manner. Aseptic technique was used throughout. The right SI joint was identified in the AP view and contralateral oblique angulation with caudal tilt was utilized to optimize visualization of the inferior and medial joint line representing the posterior portion of the joint. Local anesthesia was established by infiltration with approximately 5 mL of 2% lidocaine via a 1-1/2 inch 27-gauge needle. A 22-gauge 3.5 inch Quincke spinal needle was advanced until the needle entered the inferior third of the joint space approximately 1cm cephalad from its most inferior point. In the AP view, 0.5 mL of Omnipaque 300 contrast medium was injected after negative aspiration for CSF, blood or other bodily fluid, showing appropriate intra-articular spread of contrast without evidence of intravascular, perineural or intrathecal placement. A 1.5 mL solution containing 10 mg of dexamethasone in 0.5% PF bupivacaine was injected after repeat negative aspiration. Appropriate spread of the injectate was confirmed with washout of previous injected contrast. No parasthesias were elicited. Needle was removed completely intact without difficulty. Images were saved and documented in the patient chart. Patient's skin was cleansed and sterile bandage applied. The patient tolerated the procedure well. The patient was transported to the recovery area in stable condition where they were observed for an appropriate amount of time prior to discharge, without evidence of complication. The patient was instructed to avoid excessive activity for the next 48 hours, including climbing and frequent use of stairs. Showers only for 48 hours. They were instructed not to drive or operate heavy machinery for 24 hours. They are to monitor for severe headaches, fevers, chills, night sweats, erythema/swelling at the site or any other signs of infection, bleeding/bruising, bowel or bladder changes as well as new pain, weakness or numbness in the upper or lower extremity. Should they notice these changes, they are instructed to call our office immediately or report directly to the nearest Emergency Department if no answer or if after posted office hours. COMPLICATIONS: None COMMENTS: None CONTRAST WASTED: 29.5mL [Omnipaque 300]. Complications No immediate complications Condition Stable Disposition Same day [facility] Billing Surgery - Charge Forward: Surgery Billing
[2024-08-19 13:59] VITALS: BP 124/66; PULSE 64; RESP 16; TEMP 36.8; O2SAT 95
[2024-08-19 15:15] VITALS: BP 118/57; PULSE 66; RESP 18; O2SAT 95
[2024-08-19] MEDS: LIDOCAINE 1% LOCAL INJ 10 ML VIAL INFILTRATE (15:25)
[2024-08-19] MEDS: BUPivacaine HCL 0.5% PF 30 ML VIAL 10 ML INFILTRATE (15:25)
[2024-08-19] MEDS: dexAMETHasone SOD PHOS INJ 10 MG/ML 1 ML VIAL IM (15:26)
[2024-08-19 15:28] VITALS: BP 117/55; PULSE 66; RESP 18; O2SAT 95
[2024-08-19 15:30] VITALS: BP 120/55; PULSE 59; RESP 18; O2SAT 96
== END 2024-08-19 15:43 | disposition home or self-care (01) ==
PROVIDERS: PCP Internal Medicine; Visit Provider Anesthesiology Pain Medicine
PROC: (CPT G0260; principal; 2024-08-19 15:00)
DX: M46.1 Sacroiliitis, not elsewhere classified (principal)
CPT/HCPCS: G0260; 99199; J1100; J2003; Q9965

== ENCOUNTER 2024-09-03 09:27 | Outpatient (CLI) | payer MEDICARE, SELFPAY ==
--- NOTE | ~2024-09-03 | CT_ITS ---
CT Scan of the Chest without Contrast: Clinical Indication: Lung cancer screening, nicotine dependence Technique: Contiguous sections were acquired throughout the chest without intravenous contrast. Dose reduction technique was used on this scan by utilizing automated exposure control and iterative recon struction technique. The dose-length product (DLP) was 144.87 mGy-cm. COMPARISON: 04/20/2023 Findings: There is no evidence of any significant mediastinal, hilar or axillary lymphadenopathy. The mediastin al soft tissues appear normal. There is no evidence of pleural or pericardial effusion. Somewhat groundglass nodularity/opacity with curvilinear morphology is present in the right lower lob e, increased from prior exam (axial images 63-68). Images through the upper abdomen reveal no abnormalities. Impression: Lung RADS 3: Probably benign. Six-month follow-up CT recommended. Reviewed, dictated and finalized at [facility]. Impression: Lung RADS 3: Probably benign. Six-month follow-up CT recommended.
--- OUTSIDE RECORDS SUMMARY | 2024-09-03 09:48 | XMS_ITS | Clinical Summary ---
Author Organization [facility] Address [address] [place] [address] Care Team Providers Care Investigator Operator Name Role Phone Lon Graham DO Primary Care Provider +1- [phone] Source Comments [facility],non-owned Affiliates and Associated Physician Practices is amultiple site organization consisting of ambulatory clinics and hospital sitesin [place], [place], [place] and [place]. This disclosure is being madepursuant to the Care Everywhere program and may not contain all information available regarding this patient. Last updated 17.[facility] Allergies Active Allergy Reactions Criticality [...] Recorded Patient Health Questionnaire-2 Score 0 05/23/2023 [facility] [place] of Occupat ional Health - Occupational Stress [...] Oxygen Concentration 21% 04/10/2023 6 :30 AM UNION LABORER Weight 90.5 kg (199 lb 9.6 oz) 07/04/2023 8:35 A M CDT Height 175.3 cm (5' 9) 06/06/2023 10:28 AM CDT Body Mass Index [...] 02/21/2024 05/02/2023 AAA SCREENING 2024 INFLUENZA VACCINE (#1) 2024 0, 11/21/2019, 11/29/2018, Additional history exists SCREENING FOR DIABETES 05/22/2026 4, 05/15/2023, 05/08/2023, Additional history exists HEPATITIS B VACCINE Aged [...] this topic Medical Devices Implanted Type Area Rn New Graduate Device Identifier Shelf Expiration Date Model / Serial / Lot Seal Dural Auto Spr Ext Tip 5ml Implanted:Qty: 1 on 02/24/2023 by Bhargav Artis MD at [facility] N/A: Spine Lumbar Abbie Craniomaxillofacial [id number] / / Graft Tissue Drgn + Bvn Clgn Mtrx 2x2in Implanted:Qty: 1 on 02/24/2023 by Bhargav Artis MD at [facility] N/A: Spine Lumbar Integra Neurosciences [id number] / / Seal Dural Auto Spr Ext Tip 5ml Implanted:Qty: 1 on 02/24/2023 by Bhargav Artis MD at [facility] N/A: Spine Lumbar [place] Craniomaxillofacial [id number]-[id number] / / Seal Dural Auto Spr Ext Tip 5ml Implanted:Qty: 1 on 04/10/2023 by Bhargav Artis MD at [facility] Abbie Craniomaxillofacial 12/20/2024 [id number] / / [id number] Graft Tissue Drgn + Bvn Clgn Mtrx 2x2in Implanted:Qty: 1 on 04/10/2023 by Bhargav Artis MD at [facility] N/A: Spine Lumbar Integra Neurosciences 10/20/2025 [id number] / / [id number] Procedures Procedure Name Priority Date/Time Associated Diagnosis Comments COMPREHENSIVE METABOLIC PANEL Routine 05/23/2023 9:22 AM CDT Postoperative infection, unspecified type, initial encounter from Last 3 Months or Most Recently Relevant to Health Maintenance Results * (ABNORMAL) COMPREHENSIVE METABOLIC PANEL (05/23/2023 9:22 AM CDT) BUN 16 7 - 26 mg/dL 05/23/2023 4:21 PM [facility] Creatinine 0.70(L) 0.71 - 1.16 mg/dL 05/23/2023 4:21 PM [facility] Sodium 141 136 - 145 mmol/L 05/23/2023 4:21 PM [facility] Potassium 3.7 3.5 - 4.5 mmol/L 05/23/2023 4:21 PM [facility] Chloride 105 98 - 107 mmol/L 05/23/2023 4:21 PM [facility] CO2 23 22 - 29 mmol/L 05/23/2023 4:21 PM [facility] Glucose 66(L) 70 - 115 mg/dL 05/23/2023 4:21 PM [facility] Calcium 9.8 8.4 - 10.2 mg/dL 05/23/2023 4:21 PM [facility] Protein Total 7.3 6.0 - 8.3 g/dL 05/23/2023 4:21 PM [facility] Albumin 3.6 3.4 - 5.0 g/dL 05/23/2023 4:21 PM [facility] Bilirubin Total 0.5 0.2 - 1.2 mg/dL 05/23/2023 4:21 PM [facility] Alkaline Phosphatase 61 40 - 150 U/L 05/23/2023 4:21 PM [facility] ALT 27 5 - 55 U/L 05/23/2023 4:21 PM [facility] AST 32 5 - 34 U/L 05/23/2023 4:21 PM [facility] Anion Gap 13 6 - 16 05/23/2023 4:21 PM [facility] BUN/Creatinine Ratio 23 7 - 23 05/23/2023 4:21 PM [facility] Osmolality Calculated 291 275 - 295 mOsm/kg 05/23/2023 4:21 PM [facility] Albumin/Globulin Ratio 1.0(L) 1.1 - 2.3 05/23/2023 4:21 PM [facility] eGFR by CKD-EPI >90 >=90 mL/min/1.7 3 m2 05/23/2023 4:21 PM [facility] Blood BLOOD SPECIMEN / Unknown Lab Venipuncture / Unknown 05/23/2023 9:22 AM CDT 05/23/2023 3:47 PM T Jill Grullon PA-C LAB - CHEMISTRY ORDERABLES F inal Result [facility] [address] [place] [address], [facility] [phone] from Last 3 Months or Most Recently Relevant to Health Maintenance Insurance ANTHEM Advance Directives * Full Code (Latest Code Status on File) Date Activated Date Inactivated Comments 03/28/2023 7:59 AM 04/13/2023 6:02 PM * Full Code Date Activated Date Inactivated Comments 03/19/2023 4:28 AM 03/24/2023 3:15 PM * Full Code Date Activated Date Inactivated Comments 02/24/2023 3:33 PM 03/01/2023 2:53 PM Care Teams Investigator Operator Relationship Specialty Start Date End Date Lon Graham DO PCP - General Internal Medicine 12/27/22
--- OUTSIDE RECORDS SUMMARY | 2024-09-03 09:48 | XMS_ITS | Referral Summary ---
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 Medical Devices Implanted Type Area Portfolio Lead Device Identifier Shelf Expiration Date Model / Serial / Lot Abbie Spine [id number] Cervical Anterior 6d Cage Spinal Tritanium Sterile Latex Free - [id number] Implanted:Qty : 1 on 12/31/2020 by Jaleel Crum MD at [facility] Cage N/A: Spine Cervical Abbie Spine [id number] 10/29/2022 [id number] / / [id number] Vitoss Ba2x Bioactive Bone Graft Substitute Implanted:Qty : 1 on 12/31/2020 by Jaleel Crum MD at [facility] N/A: Spine Cervical Abbie Orthobiologics [id number] 03/19/2021 [id number] / / [id number] Abbie Spine [id number] Plate 20mm Bone [place] Spine Cervical 1 Level Nonsterile Latex Free - [id number] Implanted:Qty : 1 on 12/31/2020 by Jaleel Crum MD at [facility] N/A: Spine Cervical [place] Spine [id number] / / IN TRAY Abbie Spine [id number] zark 4mm 18mm Self Start Variable Angle Spine Cervical Screw - [id number] Implanted:Qty : 4 on 12/31/2020 by Jaleel Crum MD at [facility] N/A: Spine Cervical Abbie Spine [id number] DA / / IN TRAY Insurance [employer] [place] [employer] [facility] Care Teams Tax Services Manager Relationship Specialty Start Date End Date Lon Graham DO PCP - General Internal Medicine 06/08/20
--- OUTSIDE RECORDS SUMMARY | 2024-09-03 09:48 | XMS_ITS | Encounter Summary ---
Author Organization [facility] Address [facility] [place] [address] Care Team Providers Care Psychologists Name Role Phone Lon Graham DO Primary Care Provider +1- [phone] Reason for Visit * Reason Onset Date Comments MEDICATION REFILL 07/27/2023 Encounter Details Date Type Department Care Team (Late st Contact Info) Description 07/27/2023 Refill [facility] - Neurosurgery [address] [place] [address] Bhargav Artis MD [address] [place] [address] MEDICATION REFILL Social History Tobacco [...] Recorded Patient Health Questionnaire-2 Score 0 05/23/2023 [facility] [place] of Occupat ional Health - Occupational Stress [...] place to sleep or slept in a half-way (including now)? No 03/28/2023 Sex and Gender [...] on filedocumented in this encounter Care Teams Psychologists Relationship Specialty Start Date End Date Lon Graham DO PCP - General Internal Medicine 12/27/22 documented as of this encounter
--- OUTSIDE RECORDS SUMMARY | 2024-09-03 09:48 | XMS_ITS | Clinical Summary ---
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 Gender Identity Not on file Sexual Orientation Straight 10/21/2020 5: 07 PM CDT Obstetrics History Last Filed Vital Signs Vital Sign Reading Time Taken Comments Blood Pressure 123/72 07/02/2021 2:31 PM CDT Pulse 53 07/02/2021 2:31 PM CDT Temperature 36.4 C (97.5 F) 12/31/2020 2:40 PM LUNCHROOM SUPERVISOR Respiratory Rate 20 12/31/2020 12:15 PM LUNCHROOM SUPERVISOR Oxygen Saturation 96% 12/31/2020 12:15 PM LUNCHROOM SUPERVISOR Inhaled Oxygen Concentration - - Weight 98.2 [...] - 2023-2 5 season) 2023 04/30/2020, 04/02/2020 Abdominal Aortic Aneurysm (A AA) Screen 2024 Well Visit 65+ 2024 Influenza Vaccine (Season Ended) 2024 12/01/2019, 11/21/2019, 11/29/2018, Additional history exists DTaP/Tdap/Td Vaccine (2 - Td or Tdap) [...] on stairs Contact your local community or [facility] for information on exercise, fall prevention programs, or options for improving home safety. Medical Devices Implanted Type Area Facilities Mechanical Design Engineer Device Identifier Shelf Expiration Date Model / Serial / Lot [place] Spine [id number] Cervical Anterior 6d Cage Spinal Tritanium Sterile Latex Free - [id number] Implanted:Qty : 1 on 12/31/2020 by Jaleel Crum MD at [facility] Cage N/A: Spine Cervical Abbie Spine [id number] 10/29/2022 [id number] / / [id number] Vitoss Ba2x Bioactive Bone Graft Substitute Implanted:Qty : 1 on 12/31/2020 by Jaleel Crum MD at [facility] N/A: Spine Cervical [place] Orthobiologics [id number] 03/19/2021 [id number] / / [id number] Abbie Spine [id number] Plate 20mm Bone [place] Spine Cervical 1 Level Nonsterile Latex Free - [id number] Implanted:Qty : 1 on 12/31/2020 by Jaleel Crum MD at [facility] N/A: Spine Cervical [place] Spine [id number] / / IN TRAY Abbie Spine [id number] [id number] 4mm 18mm Self Start Variable Angle Spine Cervical Screw - [id number] Implanted:Qty : 4 on 12/31/2020 by Jaleel Crum MD at [facility] N/A: Spine Cervical [place] Spine [id number] DA / / IN TRAY [place] Care Teams Tire Layer Relationship Specialty Start Date End Date Lon Graham DO PCP - General Internal Medicine 06/08/20
--- OUTSIDE RECORDS SUMMARY | 2024-09-03 09:48 | XMS_ITS | Patient Health Record ---
Author Organization [facility] Address [address] [place] [address] Care Team Providers Care Ornamental Iron Worker Name Role Phone Patel James Primary Care [...] Coverage Start Date Coverage End Date [facility] [address] [place] [address] [id number] Christiano Johnson Self - patient is the insured 1
== END 2024-09-03 09:28 | disposition home or self-care (01) ==
PROVIDERS: PCP Internal Medicine; Visit Provider Internal Medicine
DX: Z12.2 Encounter for screening for malignant neoplasm of respiratory organs (principal); Z87.891 Personal history of nicotine dependence
CPT/HCPCS: 71271

== ENCOUNTER → 2024-10-07 12:07 | Outpatient (REF) | payer MEDICARE, SELFPAY ==
--- NOTE | 2024-10-07 12:07 | S_PTH ---
PATIENT: Baudilio Malone LOC: ANAB #:[id number] AGE/SX: 64/M ROOM: RE10/07/[address]: Savage Richards MD : 1960 BED: DIS: SPEC #: [id number] RECD: 10/07/24 12:45 STATUS: AKIL REQ #: [id number] LORRAINE: 10/07/24 12:[address]: Savage Richards DEPT: [facility] Surgical RECD BY: Analisa Sanches ENTERED: 10/07/24 12:45 SP TYPE: Surgical OTHR DR: Lon Graham DO Tissues: A - Skin Procedures: Hematoxylin and Eosin Stain Gross and Microscopic Level 4
--- OUTSIDE RECORDS SUMMARY | 2024-10-07 13:03 | XMS_ITS | Encounter Summary ---
Author Organization [facility] Address [facility] [facility] [place] [address] Care Team Providers Care Stonemason Helper Name Role Phone Lon Graham DO Primary Care Provider +1- [phone] Reason for Visit * Reason Onset Date Comments MEDICATION REFILL 07/27/2023 Encounter Details Date Type Department Care Team (Late st Contact Info) Description 07/27/2023 Refill [facility] - Neurosurgery [address] [place] [address] Bhargav Artis MD [address] [place] [address] MEDICATION REFILL Social History Tobacco [...] Recorded Patient Health Questionnaire-2 Score 0 05/23/2023 [facility] [place] of Occupat ional Health - Occupational Stress [...] place to sleep or slept in a mcfp (including now)? No 03/28/2023 Sex and Gender [...] on filedocumented in this encounter Care Teams Stonemason Helper Relationship Specialty Start Date End Date Lon Graham DO PCP - General Internal Medicine 12/27/22 documented as of this encounter
--- OUTSIDE RECORDS SUMMARY | 2024-10-07 13:03 | XMS_ITS | Clinical Summary ---
Author Organization [facility] Address [address] [place] [address] Care Team Providers Care Lead Care Manager Name Role Phone Lon Graham DO Primary Care Provider +1- [phone] Source Comments [facility],non-owned Affiliates and Associated Physician Practices is amultiple site organization consisting of ambulatory clinics and hospital sitesin [place], [place], [place] and [place]. This disclosure is being madepursuant to the Care Everywhere program and may not contain all information available regarding this patient. Last updated 17.[facility] Allergies Active Allergy Reactions Criticality Noted [...] Recorded Patient Health Questionnaire-2 Score 0 05/23/2023 [facility] [place] of Occupat ional Health - Occupational Stress [...] place to sleep or slept in a long-term (including now)? 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 Weight 90.5 kg (199 lb 9.6 oz) [...] this topic Medical Devices Implanted Type Area Test Puller Device Identifier Shelf Expiration Date Model / Serial / Lot Seal Dural Auto Spr Ext Tip 5ml Implanted:Qty: 1 on 02/24/2023 by Bhargav Artis MD at [facility] N/A: Spine Lumbar [place] Craniomaxillofacial NUS-109 / / Graft Tissue Drgn + Bvn Clgn Mtrx 2x2in Implanted:Qty: 1 on 02/24/2023 by Bhargav Artis MD at [facility] N/A: Spine Lumbar Integra Neurosciences [id number] / / Seal Dural Auto Spr Ext Tip 5ml Implanted:Qty: 1 on 02/24/2023 by Bhargav Artis MD at [facility] N/A: Spine Lumbar [place] Craniomaxillofacial NUS-109 / / Seal Dural Auto Spr Ext Tip 5ml Implanted:Qty: 1 on 04/10/2023 by Bhargav Artis MD at [facility] Abbie Craniomaxillofacial 12/20/2024 NUS-109 / / [id number] Graft Tissue Drgn + Bvn Clgn Mtrx 2x2in Implanted:Qty: 1 on 04/10/2023 by Bhargav Artis MD at [facility] N/A: Spine Lumbar Integra Neurosciences 10/20/2025 [id number] / / [id number] Procedures Procedure Name Priority Date/Time Associated Diagnosis Comments COMPREHENSIVE METABOLIC PANEL Routine 05/23/2023 9:22 AM CDT Postoperative infection, unspecified type, initial encounter from Last 3 Months or Most Recently Relevant to Health Maintenance Results * (ABNORMAL) COMPREHENSIVE METABOLIC PANEL (05/23/2023 9:22 AM CDT) BUN 16 7 - 26 mg/dL 05/23/2023 4:[address] [facility] Creatinine 0.70(L) 0.71 - 1.16 mg/dL 05/23/2023 4:[address] [facility] Sodium 141 136 - 145 mmol/L 05/23/2023 4:[address] [facility] Potassium 3.7 3.5 - 4.5 mmol/L 05/23/2023 4:[address] [facility] Chloride 105 98 - 107 mmol/L 05/23/2023 4:[address] [facility] CO2 23 22 - 29 mmol/L 05/23/2023 4:[address] [facility] Glucose 66(L) 70 - 115 mg/dL 05/23/2023 4:[address] [facility] Calcium 9.8 8.4 - 10.2 mg/dL 05/23/2023 4:[address] [facility] Protein Total 7.3 6.0 - 8.3 g/dL 05/23/2023 4:[address] [facility] Albumin 3.6 3.4 - 5.0 [...] LAB - CHEMISTRY ORDERABLES F inal Result [facility] [address] [place] [address], [facility] [phone] from Last 3 Months or Most Recently [...] 3:33 PM 03/01/2023 2:53 PM Care Teams Lead Care Manager Relationship Specialty Start Date End Date Lon Graham DO PCP - General Internal Medicine 12/27/22
--- OUTSIDE RECORDS SUMMARY | 2024-10-07 13:03 | XMS_ITS | Clinical Summary ---
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 Gender Identity Not on file Sexual Orientation Straight 10/21/2020 5: 07 PM CDT Obstetrics History Last Filed Vital Signs Vital Sign Reading Time Taken Comments Blood Pressure 123/72 07/02/2021 2:31 PM CDT Pulse 53 07/02/2021 2:31 PM CDT Temperature 36.4 C (97.5 F) 12/31/2020 2:40 PM WATER TRUCK DRIVER Respiratory Rate 20 12/31/2020 12:15 PM WATER TRUCK DRIVER Oxygen Saturation 96% 12/31/2020 12:15 PM WATER TRUCK DRIVER Inhaled Oxygen Concentration - - Weight 98.2 [...] 2024 Well Visit 65+ 2024 Influenza Vaccine (#1) 2024 , 11/21/2019, 11/29/2018, Additional history exists DTaP/Tdap/Td Vaccine [...] on stairs Contact your local community or [facility] for information on exercise, fall prevention programs, or options for improving home safety. Medical Devices Implanted Type Area Rolling Chair Pusher Device Identifier Shelf Expiration Date Model / Serial / Lot Angela Spine [id number] Cervical Anterior 6d Cage Spinal Tritanium Sterile Latex Free - [id number] Implanted:Qty : 1 on 12/31/2020 by Jaleel Crum MD at [facility] Cage N/A: Spine Cervical Angela Spine [id number] 10/29/2022 [id number] / / [id number] Vitoss Ba2x Bioactive Bone Graft Substitute Implanted:Qty : 1 on 12/31/2020 by Jaleel Crum MD at [facility] N/A: Spine Cervical Abbie Orthobiologics [id number] 03/19/2021 [id number] / / [id number] Abbie Spine [id number] Plate 20mm Bone [place] Spine Cervical 1 Level Nonsterile Latex Free - [id number] Implanted:Qty : 1 on 12/31/2020 by Jaleel Crum MD at [facility] N/A: Spine Cervical Abbie Spine [id number] / / IN TRAY Abbie Spine [id number] zark 4mm 18mm Self Start Variable Angle Spine Cervical Screw - [id number] Implanted:Qty : 4 on 12/31/2020 by Jaleel Crum MD at [facility] N/A: Spine Cervical Angela Spine [id number] DA / / IN TRAY Insurance BLUE ACCESS PR BLUE ACCESS PR BLUE ACCESS PR Care Teams Environmental Conservation Officer Relationship Specialty Start Date End Date Lon Graham DO PCP - General Internal Medicine 06/08/20
== END ==
LOC: ANHLAB 12:07
PROVIDERS: PCP Internal Medicine; Visit Provider Plastic Surgery
DX: D48.5 Neoplasm of uncertain behavior of skin (principal)
CPT/HCPCS: 88305

== ENCOUNTER 2024-11-07 00:12 | Day surgery (SDC) | payer MEDICARE, SELFPAY ==
[2024-10-22 14:47] VITALS: BMI 30.2
[2024-11-07 07:06] VITALS: BP 139/78; PULSE 59; RESP 16; TEMP 36.3; O2SAT 98; BMI 30.2
[2024-11-07] MEDS: LACTATED RINGERS 1,000 ML 150 ML IV CONT (07:15)
--- NOTE | 2024-11-07 07:43 | WPDANESEPPF ---
Anes - Initial Pre Proc Eval Procedure: Operation Date: 11/07/24 08:30 Proposed Procedures p Diagnostic Colonoscopy - Masoud Beltre MD Date/Time: 11/07/24 07:43 Surgeon: Masoud Beltre MD Pre Op Diagnosis: Abdominal pain,Personal history of colon polyps, Patient Data Age: 64 Gender: M Height: 1.75 m Weight: 92.7 kg Last Vital Signs Temp 36.3 C L 11/07/24 07:06 Pulse 59 L 11/07/24 07:06 Resp 16 11/07/24 07:06 BP 139/78 11/07/24 07:06 Pulse Ox 98 11/07/24 07:06 O2 Del Method Room Air 11/07/24 07:06 Allergies Allergy/AdvReac Type Severity Reaction Status Date / Time Penicillins Allergy Unknown Skin Verified 11/07/24 07:04 Reaction sulfamethoxazole Allergy Unknown HIVES Verified 11/07/24 07:04 trimethoprim Allergy Unknown HIVES Verified 11/07/24 07:04 Home Medications ?Medication ?Instructions ?Recorded ?Confirmed ?Type aspirin 81 mg tablet,delayed 81 mg PO DAILY 03/14/24 11/07/24 History release (Adult Low Dose Aspirin) hydrochlorothiazide 12.5 mg tablet 12.5 mg PO DAILY #90 tabs 04/03/24 11/07/24 Rx lisinopril 30 mg tablet 15 mg (1/2 x 30 mg) PO DAILY #45 04/24/24 11/07/24 Rx tabs sertraline 100 mg tablet See Rx Instructions .Route 04/24/24 11/07/24 Rx .COMPLEX #90 tabs testosterone cypionate 200 mg/mL 120 mg (0.6 mL) IM WEEKLY #10 mL 05/07/24 10/30/24 Rx intramuscular oil (Depo-Testosterone) omeprazole 40 mg capsule,delayed 40 mg PO DAILY #90 caps 05/27/24 11/07/24 Rx release multivitamin 1 tablet PO DAILY 05/31/24 11/07/24 History atorvastatin 20 mg tablet 20 mg PO QHS #90 tabs 09/02/24 11/07/24 Rx naloxone 4 mg/actuation nasal 1 spray intranasal Q2-3M PRN 10/08/24 10/30/24 Rx spray (Narcan) opioid overdose #2 ea Patient hx anesthesia problems: none Family hx anesthesia problems: none Results Review: All pre-operative results and documents have been reviewed as part of the pre-operative evaluation. [facility] Past Medical History Medical History Long-term current use of testosterone cypionate Male hypogonadism Chronic pain Cervical vertebral fusion Lumbar radiculopathy, chronic COPD (chronic obstructive pulmonary disease) Lumbar stenosis High cholesterol History of kidney stones GERD (gastroesophageal reflux disease) Fibromyalgia Anxiety Essential (primary) hypertension Surgical History Surgical History Status post lumbar spine surgery for decompression of spinal cord History of back surgery 4 times Feb/Mar 2023 Hx of fusion of cervical spine Epidermal cyst Kidney stone removed 2016 Family History Family History Father Hypertension Sibling Hypertension Mother Family history of malignant neoplasm Hodgkin lymphoma Grandparent Liver problem Alcohol abuse Social History Social History Social History: Caffeine-coffee Smoking packs per day: 1 Smoking cigarettes per day: 20.0 Years smoked: 42 Smoking pack-years: 42.00 Smoking status: Former smoker Tobacco type: cigarettes Second hand tobacco smoke exposure: No Smoking end date: 06/24/22 Additional smoking assessment comments: denies Alcohol intake: current Drinks per week: 14 Alcohol use details: 2 per week Substance use: never Substance use type: does not use Do You Feel Safe in your Home?: Yes Lack of Transportation: No Lack of Food: Never True Current Housing: I Have Housing Concerned About Future Housing: No Difficulty Paying Gas/Electric Bills: No Difficulty Paying for Meds: No Currently Unemployed: No Education: Associate Degree Difficulty w/ Childcare or Family Care: No Living arrangements: with family Additional living arrangements comments: Occupation/Education: occupation 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 Informed Consent: The patient's anesthetic plan and its attendant risks and benefits were discussed with the patient/family/POA. Questions were solicited and answers provided to the satisfaction of the patient/family/POA.
--- NOTE | 2024-11-07 08:04 | P.HP_ITS ---
History of Present Illness History of Present Illness Consent: Risks, benefits, and alternatives have been discussed and questions answered. Patient agrees to proceed with procedure. Chief complaint: Abdominal pain,Personal history of colon polyps, Narrative: Baudilio Malone is a 64 year old male here for colonoscopy, last one 15 years ago, lately with abdominal pain and constipation Review of Systems 2 Review of Systems: All systems reviewed & are unremarkable except as noted in HPI and below PMFSH Past Medical History Medical History (Updated 11/07/24 @ 08:04 by Masoud Beltre MD) Constipation Long-term current use of testosterone cypionate Male hypogonadism Chronic pain Cervical vertebral fusion Lumbar radiculopathy, chronic COPD (chronic obstructive pulmonary disease) Lumbar stenosis High cholesterol History of kidney stones GERD (gastroesophageal reflux disease) Fibromyalgia Anxiety Essential (primary) hypertension Surgical History Surgical History Status post lumbar spine surgery for decompression of spinal cord History of back surgery 4 times Feb/Mar 2023 Hx of fusion of cervical spine Epidermal cyst Kidney stone removed 2016 Family History Family History Father Hypertension Sibling Hypertension Mother Family history of malignant neoplasm Hodgkin lymphoma Grandparent Liver problem Alcohol abuse Social History Social History Social History: Caffeine-coffee Smoking packs per day: 1 Smoking cigarettes per day: 20.0 Years smoked: 42 Smoking pack-years: 42.00 Smoking status: Former smoker Tobacco type: cigarettes Second hand tobacco smoke exposure: No Smoking end date: 06/24/22 Additional smoking assessment comments: denies Alcohol intake: current Drinks per week: 14 Alcohol use details: 2 per week Substance use: never Substance use type: does not use Do You Feel Safe in your Home?: Yes Lack of Transportation: No Lack of Food: Never True Current Housing: I Have Housing Concerned About Future Housing: No Difficulty Paying Gas/Electric Bills: No Difficulty Paying for Meds: No Currently Unemployed: No Education: Associate Degree Difficulty w/ Childcare or Family Care: No Living arrangements: with family Additional living arrangements comments: Occupation/Education: 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 Gender identity (if verbalized by the patient): Male Spiritual care concerns: No Meds Home Medications and Allergies Home Medications ?Medication ?Instructions ?Recorded ?Confirmed ?Type aspirin 81 mg tablet,delayed 81 mg PO DAILY 03/14/24 0 11/07/24 History release (Adult Low Dose Aspirin) hydrochlorothiazide 12.5 mg tablet 12.5 mg PO DAILY #9 0 tabs 04/03/24 11/07/24 Rx lisinopril 30 mg tablet 15 mg (1/2 x 30 mg) PO DAILY #45 04/24/24 11/07/24 Rx tabs sertraline 100 mg tablet See Rx Instructions .Route 0 04/24/24 11/07/24 Rx .COMPLEX #90 tabs testosterone cypionate 200 mg/mL 120 mg (0.6 mL) IM WE EKLY #10 mL 05/07/24 10/30/24 Rx intramuscular oil (Depo-Testosterone) omeprazole 40 mg capsule,delayed 40 mg PO DAILY #90 ca ps 05/27/24 11/07/24 Rx release multivitamin 1 tablet PO DAILY 05/31/24 0 11/07/24 History atorvastatin 20 mg tablet 20 mg PO QHS #90 tabs 11/07/24 Rx naloxone 4 mg/actuation nasal 1 spray intranasal Q2-3M PRN 10/08/24 10/30/24 Rx spray (Narcan) opioid overdose #2 ea Allergies Allergy/AdvReac Type Severity Reaction Status Date / Time Penicillins Allergy Unknown Skin Verified 11/07/24 07:04 Reaction sulfamethoxazole Allergy Unknown HIVES Verified 11/07/24 07:04 trimethoprim Allergy Unknown HIVES Verified 11/07/24 07:04 Vital Signs Vital Signs - 24 hr 11/07/24 07:06 Temperature 97.3 F L Pulse Rate 59 L Respiratory Rate 16 Blood Pressure 139/78 Pulse Oximetry 98 Oxygen Delivery Room Air Exam Const: General: comfortable and no acute distress HENMT: Face/Nose/Sinus: Normal nares present Eyes: General: appearance normal, both eyes and all related structures Neck: Neck: no JVD Resp: Auscultation: clear to auscultation bilaterally Cardio: Rate: regular rate Rhythm: regular rhythm GI: Inspection: non-distended GI Palp: Yes Soft to palpation Skin: General skin exam: normal color Neuro: Speech: normal speech Extrem: General: normal to inspection Psych: Mental Status: mental status grossly normal Assessment and Plan Assessment and plan (1) Chronic abdominal pain: Code(s): R10.9 - Unspecified abdominal pain; G89.29 - Other chronic pain Status: Acute Assessment and Plan: colonoscopy (2) Constipation: Code(s): K59.00 - Constipation, unspecified Status: Acute
--- NOTE | 2024-11-07 08:17 | S_PTH ---
PATIENT: Baudilio Malone LOC: [facility] Aguirre#:[id number] AGE/SX: 64/M ROOM: RE11/07/[address]: Masoud Beltre MD : 1960 BED: DIS: 11/07/2024 SPEC #: [id number] RECD: 11/07/24 10:00 STATUS: AKIL PADILLA #: [id number] LORRAINE: 11/07/24 08:[address]: Masoud Beltre DEPT: [facility] Surgical RECD BY: Analisa Sanches ENTERED: 11/07/24 10:00 SP TYPE: Surgical OTHR DR: Lon Graham DO Tissues: A - Colon Polypectomy Procedures: Hematoxylin and Eosin Stain Gross and Microscopic Level 4
[2024-11-07 08:19] VITALS: BP 101/61; PULSE 62; RESP 13; O2SAT 95
[2024-11-07 08:29] VITALS: BP 120/60; PULSE 59; RESP 26; O2SAT 98
[2024-11-07 08:39] VITALS: BP 132/63; PULSE 56; RESP 25; O2SAT 98
== END 2024-11-07 09:14 | disposition home or self-care (01) ==
PROVIDERS: PCP Internal Medicine; Referring Provider Internal Medicine; Visit Provider Internal Medicine Gastroenterology
PROC: 0DJD8ZZ Inspection of Lower Intestinal Tract, Via Natural or Artificial Opening Endoscopic (ICD-10-PCS; CPT 45378; principal; 2024-11-07 08:30)
DX: Z12.11 Encounter for screening for malignant neoplasm of colon (principal); K63.5 Polyp of colon; K64.8 Other hemorrhoids; K57.30 Diverticulosis of large intestine without perforation or abscess without bleeding; I10 Essential (primary) hypertension; K21.9 Gastro-esophageal reflux disease without esophagitis; J44.9 Chronic obstructive pulmonary disease, unspecified; E29.1 Testicular hypofunction; M48.061 Spinal stenosis, lumbar region without neurogenic claudication; M79.7 Fibromyalgia; F41.9 Anxiety disorder, unspecified; G89.29 Other chronic pain; E66.9 Obesity, unspecified; Z68.30 Body mass index [BMI] 30.0-30.9, adult; Z79.82 Long term (current) use of aspirin; Z79.890 Hormone replacement therapy; Z98.890 Other specified postprocedural states; Z98.1 Arthrodesis status; Z87.891 Personal history of nicotine dependence; Z87.442 Personal history of urinary calculi; Z80.7 Family history of other malignant neoplasms of lymphoid, hematopoietic and related tissues
CPT/HCPCS: 45385; 88305; J2003; J2704; J7120

== ENCOUNTER 2024-11-21 08:00 | Outpatient (CLI) | payer MEDICARE, SELFPAY ==
--- OUTSIDE RECORDS SUMMARY | 2024-11-21 08:08 | XMS_ITS | Clinical Summary ---
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 Gender Identity Not on file Sexual Orientation Straight 10/21/2020 5: 07 PM CDT Obstetrics History Last Filed Vital Signs Vital Sign Reading Time Taken Comments Blood Pressure 123/72 07/02/2021 2:31 PM CDT Pulse 53 07/02/2021 2:31 PM CDT Temperature 36.4 C (97.5 F) 12/31/2020 2:40 PM PUBLIC ADDRESS ANNOUNCER Respiratory Rate 20 12/31/2020 12:15 PM PUBLIC ADDRESS ANNOUNCER Oxygen Saturation 96% 12/31/2020 12:15 PM PUBLIC ADDRESS ANNOUNCER Inhaled Oxygen Concentration - - Weight 98.2 [...] on stairs Contact your local community or [facility] for information on exercise, fall prevention programs, or options for improving home safety. Medical Devices Implanted Type Area Agricultural Labor Camp Manager Device Identifier Shelf Expiration Date Model / Serial / Lot Round Top Spine [id number] Cervical Anterior 6d Cage Spinal Tritanium Sterile Latex Free - [id number] Implanted:Qty : 1 on 12/31/2020 by Jaleel Crum MD at [facility] Cage N/A: Spine Cervical Round Top Spine [id number] 10/29/2022 [id number] / / [id number] Vitoss Ba2x Bioactive Bone Graft Substitute Implanted:Qty : 1 on 12/31/2020 by Jaleel Crum MD at [facility] N/A: Spine Cervical Abbie [employer] [id number] 03/19/2021 [id number] / / [id number] Abbie Spine [id number] Plate 20mm Bone Wilmar Spine Cervical 1 Level Nonsterile Latex Free - [id number] Implanted:Qty : 1 on 12/31/2020 by Jaleel Crum MD at [facility] N/A: Spine Cervical Abbie Spine [id number] / / IN TRAY Abbie Spine [id number] zark 4mm 18mm Self Start Variable Angle Spine Cervical Screw - [id number] Implanted:Qty : 4 on 12/31/2020 by Jaleel Crum MD at [facility] N/A: Spine Cervical Round Top Spine [id number] / / [place] Care Teams Corrections Specialist Relationship Specialty Start Date End Date Lon Graham DO PCP - General Internal Medicine 06/08/20
--- OUTSIDE RECORDS SUMMARY | 2024-11-21 08:08 | XMS_ITS | Encounter Summary ---
Author Organization [facility] Address [facility] [place] [address] Care Team Providers Care Barrel Turner Name Role Phone Lon Graham DO Primary Care Provider [phone]- [phone] Reason for Visit * Reason Onset Date Comments MEDICATION REFILL 07/27/2023 Encounter Details Date Type Department Care Team (Late st Contact Info) Description 07/27/2023 Refill [facility] - Neurosurgery [address] [place] [address] Bhargav Artis MD [address] [place] [address] MEDICATION REFILL Social History Tobacco [...] Recorded Patient Health Questionnaire-2 Score 0 05/23/2023 [facility] of Occupat ional Health - Occupational Stress [...] to sleep or slept in a senior living (including now)? No 03/28/2023 Sex and Gender [...] on filedocumented in this encounter Care Teams Barrel Turner Relationship Specialty Start Date End Date Lon Graham DO PCP - General Internal Medicine 12/27/22 documented as of this encounter
--- OUTSIDE RECORDS SUMMARY | 2024-11-21 08:09 | XMS_ITS | Patient Health Record ---
Author Organization [facility] Address [address] [place] [address] Care Team Providers Care Vest Presser Name Role Phone James Patel Primary Care Provider Reason For Referral No Information Immunizations Vaccine Route Administration Date Status Comme nts COVID-19 Moderna 1ST IM Intramuscular 04/02/2020 Administered EUA date 0. Screening reviewed and consent signed. Patient tolerated well. COVID-19 Moderna 2nd IM Intramuscular 04/30/2020 Administered Plan Of Treatment No Information Insurance Providers Payer Name Payer Address Payer Phone Subscriber Number Group Number Insured Name Patient Relationship to Insured Coverage Start Date Coverage End Date [facility] [address] [place] [address] [id number] Chirstiano Johnson Self - patient is the insured 1
--- OUTSIDE RECORDS SUMMARY | 2024-11-21 08:09 | XMS_ITS | Clinical Summary ---
Author Organization [facility] Address [address] [place] [address] Care Team Providers Care Sales Coordinator Name Role Phone Lon Graham DO Primary Care Provider [phone]- [phone] Source Comments [facility],non-owned Affiliates and Associated Physician Practices is amultiple site organization consisting of ambulatory clinics and hospital sitesin [place], [place], [place] and [place]. This disclosure is being madepursuant to the Care Everywhere program and may not contain all information available regarding this patient. Last updated 17.[facility] Allergies Active Allergy Reactions Criticality Noted Date [...] Recorded Patient Health Questionnaire-2 Score 0 05/23/2023 [facility] [place] of Occupat ional Health - Occupational Stress [...] place to sleep or slept in a group home (including now)? No 03/28/2023 Sex and Gender [...] Oxygen Concentration 21% 04/10/2023 6 :30 AM BILINGUAL PATIENT SUPPORT CASEWORKER Weight 90.5 kg (199 lb 9.6 oz) [...] this topic Medical Devices Implanted Type Area Character Actor Device Identifier Shelf Expiration Date Model / Serial / Lot Seal Dural Auto Spr Ext Tip 5ml Implanted:Qty: 1 on 02/24/2023 by Bhargav Artis MD at [facility] N/A: Spine Lumbar [place] Craniomaxillofacial [id number] / / Graft Tissue Drgn + Bvn Clgn Mtrx 2x2in Implanted:Qty: 1 on 02/24/2023 by Bhargav Artis MD at [facility] N/A: Spine Lumbar Integra Neurosciences [id number] / / Seal Dural Auto Spr Ext Tip 5ml Implanted:Qty: 1 on 02/24/2023 by Bhargav Artis MD at [facility] N/A: Spine Lumbar [place] Craniomaxillofacial NUS-109 / / Seal Dural Auto Spr Ext Tip 5ml Implanted:Qty: 1 on 04/10/2023 by Bhargav Artis MD at [facility] Abbie Craniomaxillofacial 12/20/2024 [id number]-[id number] / / [id number] Graft Tissue Drgn + Bvn Clgn Mtrx 2x2in Implanted:Qty: 1 on 04/10/2023 by Bhargav Artis MD at [facility] N/A: Spine Lumbar Integra Neurosciences 10/20/2025 [id number] / / [id number] Procedures Procedure Name Priority Date/Time Associated Diagnosis Comments COMPREHENSIVE METABOLIC PANEL Routine 05/23/2023 9:22 AM CDT Postoperative infection, unspecified type, initial encounter from Last 3 Months or Most Recently Relevant to Health Maintenance Results * (ABNORMAL) COMPREHENSIVE METABOLIC PANEL (05/23/2023 9:22 AM CDT) BUN 16 7 - 26 mg/dL 05/23/2023 4:21 PM [facility] Creatinine 0.70(L) 0.71 - 1.16 mg/dL 05/23/2023 4:21 PM [facility] Sodium 141 136 - 145 mmol/L 05/23/2023 4:21 PM [facility] Potassium 3.7 3.5 - 4.5 mmol/L 05/23/2023 4:21 PM [facility] Chloride 105 98 - 107 mmol/L 05/23/2023 4:21 PM [facility] CO2 23 22 - 29 mmol/L 05/23/2023 4:21 PM [facility] Glucose 66(L) 70 - 115 mg/dL 05/23/2023 4:21 PM [facility] Calcium 9.8 8.4 - 10.2 mg/dL 05/23/2023 4:21 PM [facility] Protein Total 7.3 6.0 - 8.3 g/dL 05/23/2023 4:21 PM [facility] Albumin 3.6 3.4 - 5.0 g/dL 05/23/2023 4:21 PM [facility] Bilirubin Total 0.5 0.2 - 1.2 mg/dL 05/23/2023 4:21 PM [facility] Alkaline Phosphatase 61 40 - 150 U/L 05/23/2023 4:21 PM [facility] ALT 27 5 - 55 U/L 05/23/2023 4:21 PM [facility] AST 32 5 - 34 U/L 05/23/2023 4:21 PM [facility] Anion Gap 13 6 - 16 05/23/2023 4:21 PM [facility] BUN/Creatinine Ratio 23 7 - 23 05/23/2023 4:21 PM [facility] Osmolality Calculated 291 275 - 295 mOsm/kg 05/23/2023 4:21 PM [facility] Albumin/Globulin Ratio 1.0(L) 1.1 - 2.3 05/23/2023 4:21 PM [facility] eGFR by CKD-EPI >90 >=90 mL/min/1.7 3 m2 05/23/2023 4:21 PM [facility] Blood BLOOD SPECIMEN / Unknown Lab Venipuncture / Unknown 05/23/2023 9:22 AM CDT 05/23/2023 3:47 PM T Jill Grullon PA-C LAB - CHEMISTRY ORDERABLES F inal Result [facility] [address] [place] [address], [facility] [phone] from Last 3 Months or Most Recently Relevant to Health Maintenance Insurance [employer]M [employer] SELF PAY NO INSURANCE Member Subscriber Plan / Payer (Ef fective for All Dates) Name:Baudilio Lopez Member ID:Not on file Relation to Subscriber:Not on file Name:BAUDILIO LOPEZ Subscriber ID:Not on file (Home) Address: [address] [place] [id number] Payer ID:Not on file Group ID:Not on file Type:Self Pay Address: [place], [place] Advance Directives * Full Code (Latest Code Status on File) Date Activated Date Inactivated Comments 03/28/2023 7:59 AM 04/13/2023 6:02 PM * Full Code Date Activated Date Inactivated Comments 03/19/2023 4:28 AM 03/24/2023 3:15 PM * Full Code Date Activated Date Inactivated Comments 02/24/2023 3:33 PM 03/01/2023 2:53 PM Care Teams Sales Coordinator Relationship Specialty Start Date End Date Lon Graham DO PCP - General Internal Medicine 12/27/22
[2024-12-17 17:33] VITALS: BMI 29.8
--- NOTE | 2024-12-17 17:33 | WPDSLEEPSTUD ---
Sleep Study Date of Study: 11/21/24 Ordering Provider: Lon Graham DO Interpreting Physician: Geneva Herrera DO Sleep Study Type: Split Polysomnogram Height: 1.77 m Weight: 92.986 kg Body Mass Index: 29.8 Neck Circumference (inches): 18.5 Waterman: 13 Reason for Sleep Study Daytime hypersomnia Sleep History The patient is a 64-year-old male that had a sleep study ordered by his primary care physician for evaluation of sleep apnea. The patient denies awakening from sleep short of breath. He frequently awakens at night with heartburn, belching or cough. He occasionally snores and is occasionally loud enough others complain. He frequently has trouble sleeping when he has a cold. He denies waking up gasping for air throughout the night. He denies having breathing problems at night observed by himself or others. He rarely sweats excessively at night. He denies having heart palpitations or irregular heartbeats during the night. He rarely falls asleep during the day rarely while driving. He rarely experiences loss of muscle tone when extremely emotional. He occasionally has trouble at school or work due to sleepiness. He rarely feels unable to move while waking up or falling asleep. He rarely experiences vivid dreamlike scenes upon awakening or falling asleep. He denies feeling afraid of going to sleep. He denies nightmares. He denies remembering his dreams. He rarely has thoughts racing through his mind. He rarely feels sad or depressed. He occasionally has anxiety. He occasionally has muscular tension. He occasionally notices parts of his body jerk. He rarely kicks during the night. He occasionally has crawling and aching feelings in his legs and occasionally has leg pain during night. He rarely grinds his teeth during sleep and never awakens with morning jaw pain. He is frequently bothered by pain during the day and occasionally awakened by pain during night. He rarely wakes feeling stiff in the morning. He occasionally wakes up with sore or achy muscles. He frequently wakes up with pain in the neck, spine other joints. He goes to bed between 4:30-6 p.m. every night. It takes him 30 minutes to fall asleep. He wakes up 3 times throughout the night to urinate and it can take up to 1 hour to fall back asleep. He wakes up at 4:00 a.m. every morning. He gets a minimum of 10 hours of sleep per night. He will stay in bed for 5 minutes after waking up in the morning. He currently lives his . He denies consuming any caffeinated beverages within 2 hours of bedtime. He does engage in physical exercise before bedtime. He will watch television before falling asleep. He denies taking naps in afternoon or the evening. He consumes 2 cups of caffeinated beverage every morning. He consumes 1-2 alcoholic beverages per day. He quit smoking cigarettes 2 years ago. He denies recreational drug use. [facility] Past Medical History Medical History Constipation Long-term current use of testosterone cypionate Male hypogonadism Chronic pain Cervical vertebral fusion Lumbar radiculopathy, chronic COPD (chronic obstructive pulmonary disease) Lumbar stenosis High cholesterol History of kidney stones GERD (gastroesophageal reflux disease) Fibromyalgia Anxiety Essential (primary) hypertension Surgical History Surgical History Status post lumbar spine surgery for decompression of spinal cord History of back surgery 4 times Feb/Mar 2023 Hx of fusion of cervical spine Epidermal cyst Kidney stone removed 2016 Family History Family History Father Hypertension Sibling Hypertension Mother Family history of malignant neoplasm Hodgkin lymphoma Grandparent Liver problem Alcohol abuse Social History Social History Social History: Caffeine-coffee Smoking packs per day: 0.50 Smoking cigarettes per day: 10.0 Years smoked: 40 Smoking pack-years: 20.00 Smoking status: Former smoker Tobacco type: cigarettes Second hand tobacco smoke exposure: No Smoking end date: 06/24/22 Additional smoking assessment comments: denies Alcohol intake: current Drinks per week: 2 Alcohol use details: 2 per week Substance use: never Substance use type: does not use Do You Feel Safe in your Home?: Yes Lack of Transportation: No Lack of Food: Never True Current Housing: I Have Housing Concerned About Future Housing: No Difficulty Paying Gas/Electric Bills: No Difficulty Paying for Meds: No Currently Unemployed: No Education: Associate Degree Difficulty w/ Childcare or Family Care: No Living arrangements: with family Additional living arrangements comments: Occupation/Education: 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 Gender identity (if verbalized by the patient): Male Spiritual care concerns: No Medications Home Medications ?Medication ?Instructions ?Recorded ?Confirmed ?Type aspirin 81 mg tablet,delayed 81 mg PO DAILY 03/14/24 11/13/24 History release (Adult Low Dose Aspirin) hydrochlorothiazide 12.5 mg tablet 12.5 mg PO DAILY #90 tabs 04/03/24 11/13/24 Rx lisinopril 30 mg tablet 15 mg (1/2 x 30 mg) PO DAILY #45 04/24/24 11/13/24 Rx tabs sertraline 100 mg tablet See Rx Instructions .Route 04/24/24 11/13/24 Rx .COMPLEX #90 tabs omeprazole 40 mg capsule,delayed 40 mg PO DAILY #90 caps 05/27/24 11/13/24 Rx release multivitamin 1 tablet PO DAILY 05/31/24 11/13/24 History atorvastatin 20 mg tablet 20 mg PO QHS #90 tabs 09/02/24 11/13/24 Rx naloxone 4 mg/actuation nasal 1 spray intranasal Q2-3M PRN 10/08/24 11/13/24 Rx spray (Narcan) opioid overdose #2 ea testosterone cypionate 200 mg/mL 120 mg (0.6 mL) IM WEEKLY #10 mL 11/26/24 Rx intramuscular oil (Depo-Testosterone) linaclotide 145 mcg capsule 145 mcg PO DAILY #30 caps 12/12/24 Rx (Linzess) Sleep Procedure A full night split study using the [employer] [place] multi-channel system recorded the standard physiologic parameters including EEG, EOG, submentalis EMG, anterior tibialis EMG, EKG, body position, nasal and oral airflow using nasal pressure sensor and thermistor.? Respiratory parameters of chest and abdominal movements were recorded with Respiratory Inductance Plethysmography belts. Oxygen saturation was recorded by pulse oximetry. Video monitoring was also performed. Sleep stages, periodic limb movements, and EEG arousals were scored in 30 second epochs according to the criteria of the AASM Scoring Manual. The Apnea-Hypopnea Index was calculated using CMS guidelines for definition of hypopnea with 4% O2 desaturations while scoring respiratory events. Sleep Architecture During the diagnostic portion of the study, the total recording time was 235.5 minutes. The total sleep time was 201.0 minutes. Sleep latency was 7.0 minutes.? REM latency was 149.5 minutes. Sleep Efficiency was 85.4%. The patient had 13 awakenings for an awakening index of 3.9. Wake after sleep onset time was 27.5 minutes. The patient spent 12.5 minutes, 6.2% of total sleep time in Stage N1. The patient spent 165.0 minutes, 82.1% in Stage N2. The patient spent 0.5 minutes, 0.2% in Stage N3. The patient spent 23.0 minutes, 11.4% in Stage REM sleep. At 01:21:38 AM the patient was placed on PAP treatment and was titrated at pressures ranging from 5 cm H20 up to 8 cm H20. During the treatment portion of the study, the total recording time was 256.9 minutes.? The total sleep time was 194.5 minutes. Sleep latency was 15.0 minutes. REM latency was 57.5 minutes. Sleep Efficiency was 75.7%. Wake after Sleep Onset time was 47.0 minutes. The patient spent 25.5 minutes, 13.1% of total sleep time in Stage N1. The patient spent 111.0 minutes, 57.1% in Stage N2. The patient spent 0.0 minutes, 0.0% in Stage N3. The patient spent 58.0 minutes, 29.8% in Stage REM. Respiratory Analysis During the diagnostic portion of the study, the patient had 90 hypopneas and 4 obstructive apneas for an overall Apnea Hypopnea Index of 28.1 events per hour. The REM Apnea Hypopnea Index was 73.0. The NREM Apnea Hypopnea Index was 22.2. The patient had a Central Apnea Hypopnea Index of 0. There was no evidence of Santhosh-Thompson Respirations. During the treatment portion of the study, the patient had 9 hypopneas for an overall Apnea Hypopnea Index of 2.8 events per hour. The REM Apnea Hypopnea Index was 0. The NREM Apnea Hypopnea Index was 4.0. The patient had a Central Apnea Hypopnea Index of 0. There was no evidence of Santhosh-Thompson Respirations. The patient was started on CPAP 5 cm H2O and titrated to CPAP 8 cm H2O due to hypopneas. The patient was able to fall asleep starting on CPAP 5 cm H2O. The patient was able to achieve REM sleep starting on CPAP 6 cm H2O. On CPAP 7 cm H2O, the patient spent 2.5 minutes in NREM and 53 minutes in REM with no respiratory events, resulting in an AHI of 0. On CPAP 8 cm H2O, the patient spent 81 minutes in NREM with 1 hypopnea, resulting in an AHI of 0.7. The patient had a sleep efficiency of 89.5% on 7 cm H2O and 68.9% on 8 cm H2O. Arousals During the diagnostic portion of the study, there were a total of 56 arousals for an arousal index of 16.7.? There were 4 respiratory arousals for an index of 1.2. There were 34 periodic limb movement arousals for an index of 10.1.? There were 2 isolated limb movement arousals for an index of 0.6. There were 17 spontaneous arousals for an index of 5.1. During the treatment portion of the study, there were a total of 71 arousals for an index of 21.9.? There were 2 respiratory arousals for an index of 0.6. There were 42 periodic limb movement arousals for an index of 13.0.? There were 3 isolated limb movement arousals for an index of 0.9. There were 25 spontaneous arousals for an index of 7.7. Periodic Limb Movements During the diagnostic portion of the study, the patient had 9 isolated limb movements with an index of 2.7. The patient had 695 periodic limb movements with an index of 207.5, which is elevated (normal < 15). The patient had a total of 704 limb movements with a total limb movement index of 210.1. During the treatment portion of the study, the patient had 16 isolated limb movements with an index of 4.9. The patient had 605 periodic limb movements with an index of 186.6, which is elevated (normal < 15). The patient had a total of 621 limb movements with a total limb movement index of 191.6. Oximetry Data During the diagnostic portion of the study, the patient had an average oxygen saturation of 91.3% in wake with a minimum oxygen saturation of 88% and a maximum oxygen saturation of 95%. The patient had an average oxygen saturation of 91.0% in sleep with a minimum oxygen saturation of 84.0% and a maximum oxygen saturation of 97.0%. The patient had 121 oxygen desaturations resulting in an Oxygen Desaturation Index of 36.1. The patient spent 6.2 minutes, 2.8% of total sleep time with an oxygen saturation less than 88%. During the treatment portion of the study, the patient had an average oxygen saturation of 92.6% in wake with a minimum oxygen saturation of 79.0% and a maximum oxygen saturation of 98.0%. The patient had an average oxygen saturation of 92.0% in sleep with a minimum oxygen saturation of 87.0% and a maximum oxygen saturation of 96.0%. The patient had 16 oxygen desaturations resulting in an Oxygen Desaturation Index of 4.9. The patient spent 0.4 minutes, 0.1% of total sleep time with an oxygen saturation less than 88%. Snoring Profile Mild snoring was present intermittently in the baseline portion of the study. The snoring resolved once the patient was titrated to CPAP 7 cm H2O. Cardiac Profile The EKG lead showed normal sinus rhythm with occasional PVCs. During the diagnostic portion of the study, the average pulse rate was 55.6 bpm.? The minimum pulse rate was 49.0 bpm. The maximum pulse rate was 68.0 bpm. During the treatment portion of the study, the average pulse rate was 54.9 bpm.? The minimum pulse rate was 49.0 bpm. The maximum pulse rate was 250.0 bpm. EEG Profile No signs of seizure activity seen. Assessment and Plan Assessment and Plan (1) CAROLE (obstructive sleep apnea): Code(s): G47.33 - Obstructive sleep apnea (adult) (pediatric) Status: Acute Assessment and Plan: In the baseline portion of the study, the patient had an overall AHI of 28.1 with desaturation down to 84%. This is consistent with moderate sleep apnea. The patient was started on CPAP 5 cm H2O and titrated to CPAP 8 cm H2O due to hypopneas. I recommend that the patient be prescribed CPAP 7 cm H2O, size large Resmed AirTouch F20 full face mask, CPAP filters/tubing and heated humidity. This should be used with all episodes of sleep.? Compliance should be reviewed within 31-90 days of starting therapy for usage greater than 4 hours per night greater than 70% of the nights. The patient should be asked about symptoms such as?excessive daytime sleepiness, quality of sleep, decreased nocturia, increased?mental functioning such as memory, mood, and concentration. (2) PLMD (periodic limb movement disorder): Code(s): G47.61 - Periodic limb movement disorder Status: Acute Assessment and Plan: The patient had a significant number of limb movements during the study with the majority being periodic in nature. The patient's sleep history is somewhat suggestive of Restless Leg Syndrome. I recommend that the patient have a serum ferritin drawn for evaluation of iron deficiency anemia. If the patient has a serum ferritin less than 75 ng/mL, I recommend starting a daily iron supplement and a Vitamin C supplement for better absorption. If the serum ferritin is greater than 75 ng/mL, I recommend starting a dopamine agonist and titrating the dose until symptoms resolve. There are nonpharmacological methods to treat limb movements including daily exercise, stretching calf muscles before bed, avoiding excessive amounts of caffeine and alcohol, vitamin B supplementation, magnesium lotion massaged into legs before bed, and use of a weighted blanket. Data The data obtained during this sleep study is adequate for interpretation. Certification This sleep study has been reviewed by a board certified sleep medicine physician.
== END 2024-11-22 06:35 | disposition home or self-care (01) ==
PROVIDERS: PCP Internal Medicine; Visit Provider Internal Medicine
DX: G47.33 Obstructive sleep apnea (adult) (pediatric) (principal); G47.61 Periodic limb movement disorder; G47.19 Other hypersomnia
CPT/HCPCS: 95811

== ENCOUNTER 2025-01-06 00:17 | Day surgery (SDC) | payer MEDICARE, SELFPAY ==
[2024-10-30 08:33] VITALS: BMI 29.9
--- NOTE | 2024-10-30 08:44 | PC.NURSE ---
Addendum entered by Bridgette Yang RN 12/24/24 09:44: Called pt, no changes in meds or status, was cleared by PCP. New info on DOS given to pt as below, questions answered. RIA Report to the Outpatient Waiting Room, entrance under the green pavilion located off [facility], at time ___09:00am____ on date __01/06/25 . Planned Procedure Time: _10:00am .? Time changes happen often and if your time is changed the preop area will call you the afternoon before. - You and your visitor will be asked to self-screen and do not enter if you have any COVID symptoms. Please call surgeon if you need to reschedule. - A mask is optional within the hospital at this time. Patients may have Light breakfast and take medications then nothing by mouth after 0800am except sip of water w meds when up to 2 hrs prior to surgery. Take only the following medications with a SIP of water on the morning of surgery: __Morning medications DO NOT STOP ANY OF YOUR OTHER PRESCRIPTION MEDICATIONS PRIOR TO SURGERY EXCEPT THE FOLLOWING Medications to discontinue per physician __HOLD ASPIRIN for [address] Bryant as prior per pt Date to take last dose 12/29/24 Original Note: Report to the Outpatient Waiting Room, entrance under the green pavilion located off [facility], at time ___1100am____ on date __11/11/24 . Planned Procedure Time: _1200pm .? Time changes happen often and if your time is changed the preop area will call you the afternoon before. - You and your visitor will be asked to self-screen and do not enter if you have any COVID symptoms. Please call surgeon if you need to reschedule. - A mask is optional within the hospital at this time. Patients may have Light breakfast and take medications then nothing by mouth after 1000am except sip of water w meds when up to 2 hrs prior to surgery. Take only the following medications with a SIP of water on the morning of surgery: __Morning medications DO NOT STOP ANY OF YOUR OTHER PRESCRIPTION MEDICATIONS PRIOR TO SURGERY EXCEPT THE FOLLOWING Medications to discontinue per physician __HOLD ASPIRIN for [address] Bryant as prior per pt Date to take last dose 11/02/24 Please no make-up, nail italian, hairspray, perfume, deodorant, or body powder the day of surgery.? No jewelry (including any body piercings) or valuables the day of surgery, leave them at home.? Please take a shower or bath the night before, or the morning of, surgery with an antibacterial soap.? Wear comfortable, loose fitting clothing.? - Jewelry must be removed prior to entering the operating room.? Rings and piercings that are not removed may be cut off. - The hospital will not accept responsibility for valuables.? - Please leave all valuables, including medications, at home the day of surgery. If you are going home after surgery, a licensed straight truck driver must drive you home.? - NO public transportation without another adult if you receive anesthesia. - We recommend that an adult stay with you for 24 hours following discharge. - We also recommend that you do not drive, make important decision, drink alcoholic beverages, or take any drugs that were not prescribed by your health care provider for at least 24 hours after your discharge time. Follow any additional instructions given to you from your surgeon. Telephone instructions given to _Patient and asked if any additional questions and then verbalized understanding. Patient advised to call surgeon office or pre surgery nurse liaison [phone] if any additional questions.
--- OUTSIDE RECORDS SUMMARY | 2024-11-11 00:23 | XMS_ITS | Clinical Summary ---
Author Organization [facility] Address [address] [place] [address] Care Team Providers Care Plastic Eye Technician Name Role Phone Lon Graham DO Primary Care Provider +1- [phone] Source Comments [facility],non-owned Affiliates and Associated Physician Practices is amultiple site organization consisting of ambulatory clinics and hospital sitesin [place], [place], [place] and [place]. This disclosure is being madepursuant to the Care Everywhere program and may not contain all information available regarding this patient. 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 Weight 90.5 kg (199 lb 9.6 oz) [...] - Risk 60-74 years 1-dose series) 2019 DEPRESSION SCREENING 02/21/2024 05/02/2023 AAA SCREENING 2024 COVID-19 VACCINE ( season) 2024 04/30/2020, 04/02/2020 INFLUENZA VACCINE (#1) 2024 0, 11/21/2019, 11/29/2018, Additional history exists SCREENING FOR DIABETES 05/22/2026 4, 04/12/2023, 04/12/2023, Additional history exists HEPATITIS B [...] this topic Medical Devices Implanted Type Area Bottom Man Device Identifier Shelf Expiration Date Model / Serial / Lot Seal Dural Auto Spr Ext Tip 5ml Implanted:Qty: 1 on 02/24/2023 by Bhargav Artis MD at [facility] N/A: Spine Lumbar Abbie Craniomaxillofacial [id number]-109 / / Graft Tissue Drgn + Bvn Clgn Mtrx 2x2in Implanted:Qty: 1 on 02/24/2023 by Bhargav Artis MD at [facility] N/A: Spine Lumbar Integra Neurosciences [id number] / / Seal Dural Auto Spr Ext Tip 5ml Implanted:Qty: 1 on 02/24/2023 by Bhargav Artis MD at [facility] N/A: Spine Lumbar [place] Craniomaxillofacial NUS-109 / / Seal Dural Auto Spr Ext Tip 5ml Implanted:Qty: 1 on 04/10/2023 by Bhargav Artis MD at [facility] [place] Craniomaxillofacial 12/20/2024 [id number]-109 / / [id number] Graft Tissue Drgn + Bvn Clgn Mtrx 2x2in Implanted:Qty: 1 on 04/10/2023 by Bhargav Artis MD at [facility] N/A: Spine Lumbar Integra Neurosciences 10/20/2025 [id number] / / [id number] Procedures Procedure Name Priority Date/Time Associated Diagnosis Comments COMPREHENSIVE METABOLIC PANEL Routine 05/23/2023 9:22 AM CDT Postoperative infection, unspecified type, initial encounter from Last 3 Months or Most Recently Relevant to Health Maintenance Results * (ABNORMAL) COMPREHENSIVE METABOLIC PANEL (05/23/2023 9:22 AM CDT) BUN 16 7 - 26 mg/dL 05/23/2023 4:21 PM [facility] Creatinine 0.70(L) 0.71 - 1.16 mg/dL 05/23/2023 4:21 PM [facility] Sodium 141 136 - 145 mmol/L 05/23/2023 4:21 PM [facility] Potassium 3.7 3.5 - 4.5 mmol/L 05/23/2023 4:21 PM [facility] Chloride 105 98 - 107 mmol/L 05/23/2023 4:21 PM [facility] CO2 23 22 - 29 mmol/L 05/23/2023 4:21 PM [facility] Glucose 66(L) 70 - 115 mg/dL 05/23/2023 4:21 PM [facility] Calcium 9.8 8.4 - 10.2 mg/dL 05/23/2023 4:21 PM [facility] Protein Total 7.3 6.0 - 8.3 g/dL 05/23/2023 4:21 PM [facility] Albumin 3.6 3.4 - 5.0 g/dL [...] LAB - CHEMISTRY ORDERABLES F inal Result [facility] [address] [place] [address], [facility] [phone] from Last 3 Months or Most Recently Relevant to Health Maintenance Insurance [employer] SELF PAY NO INSURANCE Member Subscriber Plan / Payer (Ef fective for All Dates) Name:Baudilio Lopez Member ID:Not on file Relation to Subscriber:Not on file Name:BAUDILIO LOPEZ Subscriber ID:Not on file (Home) Address: [address] [place] [id number] Payer ID:Not on file Group ID:Not on file Type:Self Pay Address: [place], [place] Advance Directives * Full Code (Latest Code Status on File) Date Activated Date Inactivated Comments 03/28/2023 7:59 AM 04/13/2023 6:02 PM * Full Code Date Activated Date Inactivated Comments 03/19/2023 4:28 AM 03/24/2023 3:15 PM * Full Code Date Activated Date Inactivated Comments 02/24/2023 3:33 PM 03/01/2023 2:53 PM Care Teams Plastic Eye Technician Relationship Specialty Start Date End Date Lon Graham DO PCP - General Internal Medicine 12/27/22
--- OUTSIDE RECORDS SUMMARY | 2024-11-11 00:23 | XMS_ITS | Clinical Summary ---
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 Gender Identity Not on file Sexual Orientation Straight 10/21/2020 5: 07 PM CDT Obstetrics History Last Filed Vital Signs Vital Sign Reading Time Taken Comments Blood Pressure 123/72 07/02/2021 2:31 PM CDT Pulse 53 07/02/2021 2:31 PM CDT Temperature 36.4 C (97.5 F) 12/31/2020 2:40 PM 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 Respiratory Rate 20 12/31/2020 12:15 PM 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 Medical Devices Implanted Type Area Yarding Supervisor Device Identifier Shelf Expiration Date Model / Serial / Lot Abbie Spine [id number] Cervical Anterior 6d Cage Spinal Tritanium Sterile Latex Free - [id number] Implanted:Qty : 1 on 12/31/2020 by Jaleel Crum MD at [facility] Cage N/A: Spine Cervical Abbie Spine [id number] 10/29/2022 [id number] / / [id number] Vitoss Ba2x Bioactive Bone Graft Substitute Implanted:Qty : 1 on 12/31/2020 by Jaleel Crum MD at [facility] N/A: Spine Cervical Abbie Orth[employer]ics [id number] 03/19/2021 [id number] / / [id number] [place] Spine [id number] Plate 20mm Bone [place] Spine Cervical 1 Level Nonsterile Latex Free - [id number] Implanted:Qty : 1 on 12/31/2020 by Jaleel Crum MD at [facility] N/A: Spine Cervical [place] Spine [id number] / / IN TRAY Abbie Spine [id number] zark 4mm 18mm Self Start Variable Angle Spine Cervical Screw - [id number] Implanted:Qty : 4 on 12/31/2020 by Jaleel Crum MD at [facility] N/A: Spine Cervical Abbie Spine [id number] DA / / IN TRAY Insurance BLUE ACCESS DE BLUE ACCESS DE BLUE ACCESS DE Care Teams Analytics Analyst Relationship Specialty Start Date End Date Lon Graham DO PCP - General Internal Medicine 06/08/20
--- OUTSIDE RECORDS SUMMARY | 2024-11-11 00:23 | XMS_ITS | Patient Health Record ---
Author Organization [facility] Address [address] [place] [address] Care Team Providers Care Roll Over Loader Name Role Phone Amanda James Primary Care [...] Coverage Start Date Coverage End Date [facility] [address] [place] [address] [phone] [id number] Christiano Johnson Self - patient is the insured 1
--- NOTE | ~2025-01-06 | XR_ITS ---
EXAM/PROCEDURE: XR fluoroscopy no charge HISTORY: EPIDURAL ACCESS PLACEMENT COMPARISON: None available. TECHNIQUE: Fluoroscopic guided pain management images Fluoroscopy time: 27.6 seconds DAP: [phone] Davis per square centimeter Number of images: 2 IMPRESSION: Fluoroscopic guidance for pain management. See procedure/operative notes for complete evaluation. EATION COORDINATOR Reviewed, dictated and finalized at location A. IMPRESSION: Fluoroscopic guidance for pain management. See procedure/operative notes for co mplete evaluation.
--- NOTE | 2025-01-06 06:19 | P.HP_ITS ---
History of Present Illness History of Present Illness Consent: Risks, benefits, and alternatives have been discussed and questions answered. Patient agrees to proceed with procedure. Chief complaint: chronic pain Narrative: Baudilio Malone is a 64 year old male with chronic, recalcitrant and disabling pain with failure to satisfactorily respond to aggressive conservative measures including PT, oral and topical analgesics, oral opioid and nonopioid analgesics, rest, time and activity/behavioral modification over the past 6-12 months who presents for single-bolus epidural opioid trial (Pump Trial) with morphine under fluoroscopic guidance and with contrast control. Review of Systems Review of Systems: All systems reviewed & are unremarkable except as noted in HPI and below PMFSH Past Medical History Medical History Constipation Long-term current use of testosterone cypionate Male hypogonadism Chronic pain Cervical vertebral fusion Lumbar radiculopathy, chronic COPD (chronic obstructive pulmonary disease) Lumbar stenosis High cholesterol History of kidney stones GERD (gastroesophageal reflux disease) Fibromyalgia Anxiety Essential (primary) hypertension Surgical History Surgical History Status post lumbar spine surgery for decompression of spinal cord History of back surgery 4 times Feb/Mar 2023 Hx of fusion of cervical spine Epidermal cyst Kidney stone removed 2016 Family History Family History Father Hypertension Sibling Hypertension Mother Family history of malignant neoplasm Hodgkin lymphoma Grandparent Liver problem Alcohol abuse Social History Social History Social History: Caffeine-coffee Smoking packs per day: 0.50 Smoking cigarettes per day: 10.0 Years smoked: 40 Smoking pack-years: 20.00 Smoking status: Former smoker Tobacco type: cigarettes Second hand tobacco smoke exposure: No Smoking end date: 06/24/22 Additional smoking assessment comments: denies Alcohol intake: current Drinks per week: 2 Alcohol use details: 2 per week Substance use: never Substance use type: does not use Do You Feel Safe in your Home?: Yes Lack of Transportation: No Lack of Food: Never True Current Housing: I Have Housing Concerned About Future Housing: No Difficulty Paying Gas/Electric Bills: No Difficulty Paying for Meds: No Currently Unemployed: No Education: Associate Degree Difficulty w/ Childcare or Family Care: No Living arrangements: with family Additional living arrangements comments: Occupation/Education: occupation 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 Gender identity (if verbalized by the patient): Male Spiritual care concerns: No Meds Home Medications and Allergies Home Medications ?Medication ?Instructions ?Recorded ?Confirmed ?Type aspirin 81 mg tablet,delayed 81 mg PO DAILY 03/14/24 0 11/13/24 History release (Adult Low Dose Aspirin) hydrochlorothiazide 12.5 mg tablet 12.5 mg PO DAILY #9 0 tabs 04/03/24 11/13/24 Rx lisinopril 30 mg tablet 15 mg (1/2 x 30 mg) PO DAILY #45 04/24/24 11/13/24 Rx tabs sertraline 100 mg tablet See Rx Instructions .Route 0 04/24/24 11/13/24 Rx .COMPLEX #90 tabs omeprazole 40 mg capsule,delayed 40 mg PO DAILY #90 ca ps 05/27/24 11/13/24 Rx release multivitamin 1 tablet PO DAILY 05/31/24 0 11/13/24 History atorvastatin 20 mg tablet 20 mg PO QHS #90 tabs 11/13/24 Rx naloxone 4 mg/actuation nasal 1 spray intranasal Q2-3M PRN 10/08/24 11/13/24 Rx spray (Narcan) opioid overdose #2 ea testosterone cypionate 200 mg/mL 120 mg (0.6 mL) IM WE EKLY #10 mL 11/26/24 12/24/24 Rx intramuscular oil (Depo-Testosterone) linaclotide 145 mcg capsule 145 mcg PO DAILY #30 caps 12/12/24 12/24/24 Rx (Linzess) CPAP See Rx Instructions .Route 1 12/24/24 Rx .COMPLEX #1 ea Allergies Allergy/AdvReac Type Severity Reaction Status Date / Time Penicillins Allergy Unknown Skin Verified 12/24/24 09:44 Reaction sulfamethoxazole Allergy Unknown HIVES Verified 12/24/24 09:44 trimethoprim Allergy Unknown HIVES Verified 12/24/24 09:44 Exam Narrative: The patient's physical exam is essentially unchanged from prior examination on 09/18/24. Specifically, patient demonstrates normal lung capacity, tidal volume and respiratory rate without wheezes, crackles, rales or rubs. Heart rate and rhythm are regular without murmurs, gallops or rubs. No JVD. Pulses 2+ globally without increasing peripheral edema. AAOx3 with no evidence of confusion, intoxication or altered mental state, NC/AT without acute distress or altered consciousness. Speech, cognition, mood, insight and judgment at baseline and within normal limits. Assessment and Plan Assessment and plan (1) Postlaminectomy syndrome of lumbosacral region: Code(s): M96.1 - Postlaminectomy syndrome, not elsewhere classified Status: Acute Assessment and Plan: proceed as planned with single-bolus epidural opioid trial (Pump Trial) with morphine under fluoroscopic guidance and with contrast control. (2) Dorsalgia: Code(s): M54.9 - Dorsalgia, unspecified Status: Acute (3) Lumbar radiculopathy, right: Code(s): M54.16 - Radiculopathy, lumbar region Status: Acute (4) Chronic pain: Code(s): G89.29 - Other chronic pain Status: Acute
--- NOTE | 2025-01-06 06:29 | WPDHPUPDATE1 ---
History and Physical Update Update Date/Time: 01/06/25 06:29 History and Physical has been reviewed, including an updated exam of the patient. There are NO changes in the patient's condition. Risks, benefits, and alternatives have been discussed and questions answered. Patient agrees to proceed with procedure.
--- NOTE | 2025-01-06 06:30 | W.PM.PROC2 ---
Procedure Note - Detailed Date of Procedure 01/06/25 Pre-op Diagnosis chronic pain Post-op Diagnosis Same Procedure Performed Thoracolumbar Interlaminar Epidural Needle Placement at T11-12 for Single Prognostic Epidural Bolus of Opioid Analgesic (Pump Trial) under Fluoroscopic Guidance with Contrast Control. Surgeon Lucio Bryant MD Lead Advisor None. Anesthesia Local Description of Procedure INFORMED CONSENT: Risks, benefits and alternatives to the procedure were discussed in detail with the patient who expressed explicit understanding and consent to proceed. Patient was informed verbally and in written form regarding the risks associated with the procedure including the low risk of inadvertent dural puncture resulting in CSF leak and subsequent acute or chronic spinal headache, serious systemic or local infection requiring additional surgery, bleeding/bruising or blood clot, allergic reaction, nerve /spinal cord or organ injury resulting in temporary or permanent weakness, paralysis, numbness, pain, deformity or bowel or bladder incontinence, procedural site pain or discomfort, worsening pain and/or mobility, failure to treat and/or disfigurement, as well as the risk of opioid overdose resulting in sedation, cognitive impairment, hypoxia, coma, , or under dose causing withdrawal symptoms or untreated pain. The patient expressed explicit understanding and consent to proceed despite the potential risks with the agreement that potential benefits far outweigh potential for harm. All materials required for the procedure were available prior to procedure start. Site and side were marked prior to procedure and confirmed in the presence of the patient. PROCEDURE IN DETAIL: The patient was brought to the procedural suite and placed in the prone position. Patient was made comfortable with use of pillows under the head/chest, hips and ankles. Appropriate monitoring initiated. Skin overlying the injection site was prepared broadly with ChloraPrep applicator and draped in a sterile manner. Aseptic technique was employed throughout. The endplates of the vertebral body at the site of interest were aligned in the AP view. Slight caudal tilt and ipsilateral oblique angulation was utilized to optimize visualization of the targeted posterior intervertebral foramen at T12-L1. Local anesthesia was established by infiltration with approximately 5 mL of 0.5% lidocaine via a 1-1/2 inch 27-gauge needle. A 20-gauge 4-inch Tuohy epidural needle was advanced intermittently until appropriate loss of resistance to air was identified via plastic loss of resistance syringe. Lateral view was used to confirm the appropriate positioning of the needle tip within the posterior epidural space. In the AP view, 2.0 mL of Omnipaque 300 contrast medium was injected after negative aspiration for CSF, blood or other bodily fluid, showing appropriate epidural spread of contrast without evidence of intravascular or intrathecal placement. 2 ml of a 1mg/ml aqueous solution of preservative free morphine labeled for IT/Epidural use was injected after negative repeat aspiration. Appropriate spread of the injectate was confirmed with washout of previously injected contrast. No parasthesias were elicited. Needle was removed intact and without difficulty. Site was cleaned and sterile bandage was applied. The patient tolerated the procedure well with no evidence of complication. Images were saved and documented in the patient chart. Patient's skin was cleaned and sterile bandage applied. The patient tolerated the procedure well. The patient was transported to the recovery area in stable condition where they were observed and monitored (RR, HR, BP, O2 Sats, Pain level) for an appropriate amount of time prior to discharge (no less than 1 hour), without evidence of complication. After approximately one hour, the patient was evaluated for neurologic deficit, pain relief and side effects with results as below. Patient instructed to remain in the presence of a responsible adult to monitor for the next 72 hours. The patient was instructed to avoid excessive activity for the next 48 hours, including climbing and frequent use of stairs. Showers only for 48 hours. They were instructed not to drive or operate heavy machinery for 72 hours. They are to monitor for pruritus, sedation/confusion, severe headaches, fevers, chills, night sweats, erythema/swelling at the site or any other signs of infection, bleeding/bruising, bowel or bladder changes as well as new pain, weakness or numbness in the upper or lower extremity. Should they notice these changes, they are instructed to call our office immediately or report directly to the nearest Emergency Department if no answer or if after posted office hours. COMPLICATIONS: None COMMENTS: Total dose:2 mg Morphine. No side effects of nausea, pruritus, somnolence, hallucinations noted. CONTRAST WASTED: 26mL Omnipaque 300. Complications No immediate complications Condition Stable Disposition Same day ( Extended stay greater than 1 hour.) [facility] Billing Surgery - Charge Forward: Surgery Billing
[2025-01-06 09:28] VITALS: BP 142/68; PULSE 59; TEMP 36.6; O2SAT 98; BMI 30.9
[2025-01-06 10:00] VITALS: BP 134/83; PULSE 62; RESP 18; O2SAT 98
[2025-01-06 10:08] VITALS: BP 166/86; PULSE 58; RESP 18; O2SAT 97
[2025-01-06 10:12] VITALS: BP 137/71; PULSE 56; RESP 16; O2SAT 99
== END 2025-01-06 10:28 | disposition home or self-care (01) ==
PROVIDERS: PCP Internal Medicine; Visit Provider Anesthesiology Pain Medicine
PROC: (CPT 62321; principal; 2025-01-06 10:00)
DX: G89.29 Other chronic pain (principal); M96.1 Postlaminectomy syndrome, not elsewhere classified; M54.16 Radiculopathy, lumbar region; Z87.891 Personal history of nicotine dependence
CPT/HCPCS: 62321; 99199

== ENCOUNTER 2025-01-29 08:45 | Outpatient (CLI) | payer MEDICARE, SELFPAY ==
--- NOTE | ~2025-01-29 | CT_ITS ---
EXAMINATION: CT diagnostic chest wo con DATE: 01/29/2025 09:06 INDICATION: Abnormal findings on recent diagnostic imaging TECHNIQUE: Computed tomography (CT) of the chest was performed without intravenous contrast. Additional 3D reconstructions utilizing coronal maximum intensity projection (MIP) were performed. Automated exposure control and iterative reconstruction technique were employed. The dose-length product was 49 7.65 mGy-cm. COMPARISON: 09/03/2024 FINDINGS: Interval increase in size of focal regions of nodular thickening measuring up to 7 mm in diameter along and increasingly thickened small linear band of consolidation at the junction of the superior and basilar segments of the right lower lobe which could be infectious/inflammatory or malignant in etiology. Unchanged small calcified right basilar nodule consistent with old granulomatous disease. No other new or enlarging pulmonary nodules, pulmonary edema or pleural effusion. Heart size is normal. Atherosclerotic coronary artery calcific lesions. No pericardial effusion. Thoracic aorta is normal in caliber. Visualized upper abdomen is unremarkable. Severe thoracic spondylosis. IMPRESSION: 1. Cluster of small nodules along a small linear band of consolidation with both increase in size of the nodules and thickening of the bed of consolidation compared with the prior study. This raises concern for malignancy and would recommend CT-guided biopsy. Reviewed, dictated and finalized at location A. MER HELPER IMPRESSION: 1. Cluster of small nodules along a small linear band of consolidation with bot h increase in size of the nodules and thickening of the bed of consolidation co mpared with the prior study. This raises concern for malignancy and would recom mend CT-guided biopsy.
== END 2025-01-29 08:46 | disposition home or self-care (01) ==
LOC: MICIMG 08:46
PROVIDERS: PCP Internal Medicine; Visit Provider Internal Medicine
DX: R91.8 Other nonspecific abnormal finding of lung field (principal); R93.89 Abnormal findings on diagnostic imaging of other specified body structures
CPT/HCPCS: 71250